=== PATIENT | female | born 1990 | race African-American/Black ===

== ENCOUNTER 2016-10-08 10:51 | Emergency (ER) | payer SELFPAY ==
[~2016-10-08] VITALS: Ht 157.5 cm; Wt 124.7 kg
[~2016-10-08 10:51] MED LIST: AZIT500T4 PO; CEPH-264 PO; CIPR500T94 PO; HYDR-2666 PO; METR500T PO; NAPR500T3 PO; PRED20TA PO; PRED50TA PO; PROAIR HFA8.5 GM INH; VENTOLIN HFA18 GM INH
[2016-10-08] MEDS ORDERED: METRONIDAZOLE 500 MG TABLET. PO ONE (11:45)
[2016-10-08] MEDS ORDERED: CEFTRIAXONE IM 250 MG VIAL. IM ONE (11:45)
[2016-10-08] MEDS ORDERED: AZITHROMYCIN 250 MG TABLET PO ONE (11:45)
--- NOTE | 2016-10-08 12:07 | PHYS DOC ---
Past Medical History Past Medical History: Asthma Past Surgical History: Other Additional Past Surgical Histo: keloid removed from ear Alcohol Use: Occasionally Drug Use: None Adult General Chief Complaint Chief Complaint: ABDOMINAL PAIN HPI HPI Patient is a 26 year old female with history of asthma who presents today with mild bilateral lower pelvic pain that began 4 days ago. Patient states the pain radiates to her back. Patient's also complaining of dysuria. Patient denies any hematuria. She is also concerned she could have an STD. She states she had unprotected sex recently and would like to be tested and treated. Review of Systems Review of Systems Constitutional: Denies fever or chills [] Eyes: Denies change in visual acuity, redness, or eye pain [] HENT: Denies nasal congestion or sore throat [] Respiratory: Denies cough or shortness of breath [] Cardiovascular: No additional information not addressed in HPI [] GI: Pelvic pain : Dysuria, concern for STDs Musculoskeletal: Denies back pain or joint pain [] Integument: Denies rash or skin lesions [] Neurologic: Denies headache, focal weakness or sensory changes [] Endocrine: Denies polyuria or polydipsia [] Current Medications Current Medications Current Medications Medications (Trade) Dose Ordered Sig/Adam Start Time Stop Time Status Last Admin Dose Admin Azithromycin (Zithromax) 1,000 mg 1X ONCE 10/08/16 11:45 10/08/16 11:46 DC 10/08/16 12:08 1,000 MG Ceftriaxone Sodium (Rocephin Im) 250 mg 1X ONCE 10/08/16 11:45 10/08/16 11:46 DC 10/08/16 12:09 250 MG Metronidazole (Flagyl) 2,000 mg 1X ONCE 10/08/16 11:45 10/08/16 11:46 DC 10/08/16 12:08 2,000 MG Allergies Allergies Allergies Coded Allergies Type Severity Reaction Last Updated Verified No Known Drug Allergies 03/02/16 No Physical Exam Physical Exam Constitutional: Well developed, well nourished, no acute distress, non-toxic appearance. [] HENT: Normocephalic, atraumatic, bilateral external ears normal, oropharynx moist, no oral exudates, nose normal. [] Eyes: PERRLA, EOMI, conjunctiva normal, no discharge. [] Neck: Normal range of motion, no tenderness, supple, no stridor. [] Cardiovascular:Heart rate regular rhythm, no murmur [] Lungs & Thorax: Bilateral breath sounds clear to auscultation [] Abdomen: Bowel sounds normal, soft, no tenderness, no masses, no pulsatile masses. [] Pelvic exam=External pelvic appears normal, cervix is closed, no CMT, no adnexal tenderness. Small amount of white discharge in the vaginal vault. Skin: Warm, dry, no erythema, no rash. [] Back: No tenderness, no CVA tenderness. [] Extremities: No tenderness, no cyanosis, no clubbing, ROM intact, no edema. [] Neurologic: Alert and oriented X 3, normal motor function, normal sensory function, no focal deficits noted. [] Psychologic: Affect normal, judgement normal, mood normal. [] Current Patient Data Vital Signs Vital Signs Date Time Temp Pulse Resp B/P Pulse Ox O2 Delivery O2 Flow Rate FiO2 10/08/16 12:09 80 124/58 Room Air 10/08/16 11:19 97.8 16 98 97.8 Lab Values Laboratory Tests Test 10/08/16 11:18 10/08/16 11:33 Urine Collection Type Unknown Urine Color Yellow Urine Clarity Clear Urine pH 6.0 Urine Specific [place] 1.025 Urine Protein Negativemg/dL (NEG-TRACE) Urine Glucose (UA) Negativemg/dL (NEG) Urine Ketones (Stick) Negativemg/dL (NEG) Urine Blood Negative (NEG) Urine Nitrite Negative (NEG) Urine Bilirubin Negative (NEG) Urine Urobilinogen Dipstick 0.2mg/dL (0.2 mg/dL) Urine Leukocyte Esterase Moderate (NEG) Urine RBC 0/HPF (0-2) Urine WBC 1-4/HPF (0-4) Urine Squamous Epithelial Cells Many/LPF Urine Bacteria 0/HPF (0-FEW) Urine Mucus Marked/LPF POC Urine HCG, Qualitative Hcg negative (Negative) Microbiology 10/08/16 Wet Prep - Final, Complete EKG EKG [] Radiology/Procedures Radiology/Procedures [] Course & Med Decision Making Course & Med Decision Making Pertinent Labs and Imaging studies reviewed. (See chart for details) Patient is in the ED with dysuria and concern for UTI as well as concern for STDs. Negative urine hCG, urine analysis is positive for UTI. Positive for bacterial vaginosis. Treated prophylaxis for STDs with Flagyl Rocephin and azithromycin. Discharged with Flagyl to complete BV treatment. Discharged with Bactrim for UTI. Educated on safe sex practices. Follow-up with PCP or health department for further STD concerns. Nikki Disclaimer Nikki Disclaimer This electronic medical record was generated, in whole or in part, using a voice recognition dictation system. Departure Departure Impression: Primary Impression: UTI (lower urinary tract infection) Additional Impressions: Bacterial vaginosis Concern about STD in female without diagnosis Disposition: 01 HOME, SELF-CARE Condition: STABLE Referrals: NO PCP (PCP) Follow-up with your own doctor or the health department for further STD concerns Patient Instructions: Bacterial Vaginosis, [id number], Urinary Tract Infection Additional Instructions: You were seen for urinary tract infection, you also tested positive for bacterial vaginosis. You requested to be treated for STDs which we did. Contact all your sex partners, let them know you were treated for STDs and ask them to seek treatment too. Follow-up with the health department for further STD concerns. Scripts Fluconazole (Diflucan)150 Mg Tablet1 Tab PO ONCE #1 TAB Ref 1 Take one tablet today and repeat in 7 days Prov:NICK ERICKSON APRN 10/08/16 Metronidazole (Flagyl)500 Mg Tablet1 Tab PO BID #10 TAB Prov:NICK ERICKSON APRN 10/08/16 Sulfamethoxazole/Trimethoprim (Bactrim Ds Tablet)1 Each Tablet1 Tab PO BID #14 TAB Prov:NICK ERICKSON APRN 10/08/16 Problem Qualifiers NICK ERICKSON APRN Oct 08, 2016 12:07
[2016-10-08 12:09] VITALS: BP 124/58
[2016-10-08 12:10] LABS: BILIRUBIN,URINE NEGATIVE (NEG); GLUCOSE,URINE NEGATIVE (NEG); NITRITE,URINE NEGATIVE (NEG); PROTEIN,URINE NEGATIVE (NEG-TRACE); UROBILINOGEN,URINE 0.2 mg/dL (0.2 mg/dL)
[2016-10-08 12:27] LABS: BACTERIA,URINE 0 /HPF (0-FEW); RBC,URINE 0 /HPF (0-2); SQUAMOUS EPITHELIAL CELL,UR MANY /LPF
[2016-10-08] MEDS ORDERED: FLUC150T PO (13:16)
[2016-10-08] MEDS ORDERED: METR500T PO (13:16)
[2016-10-08] MEDS ORDERED: SULF1TAB24 PO (13:16)
== END 2016-10-08 13:29 | disposition home or self-care (01) ==
LOC: ER 10:51
DX: N39.0 Urinary tract infection, site not specified (principal); N76.0 Acute vaginitis; B96.89 Other specified bacterial agents as the cause of diseases classified elsewhere; Z11.3 Encounter for screening for infections with a predominantly sexual mode of transmission; J45.909 Unspecified asthma, uncomplicated
CPT/HCPCS: 81001; 81025; 87491; 87591; 96372; 99284; J0696; Q0111; Q0144

== ENCOUNTER 2016-11-18 20:10 | Emergency (ER) | payer SELFPAY ==
[~2016-11-18 20:10] MED LIST changes: +FLUC150T PO; +SULF1TAB24 PO
[2016-11-18 20:20] VITALS: BP 124/76
--- NOTE | 2016-11-18 21:55 | PHYS DOC ---
Past Medical History Past Medical History: Asthma Past Surgical History: Other Additional Past Surgical Histo: keloid removed from ear Alcohol Use: Occasionally Drug Use: None Adult General Chief Complaint Chief Complaint: FOREIGNBODY EAR HPI HPI Patient is a 26 year old female who presents with a Q-tip stuck in her right ear. Review of Systems Review of Systems Constitutional: Denies fever or chills [] Eyes: Denies change in visual acuity, redness, or eye pain [] HENT: Q-tip in the right ear Musculoskeletal: Denies back pain or joint pain [] Integument: Denies rash or skin lesions [] Neurologic: Denies headache, focal weakness or sensory changes [] Endocrine: Denies polyuria or polydipsia [] Allergies Allergies Allergies Coded Allergies Type Severity Reaction Last Updated Verified No Known Drug Allergies 03/02/16 No Physical Exam Physical Exam Constitutional: Well developed, well nourished, no acute distress, non-toxic appearance. [] HENT: Normocephalic, atraumatic, bilateral external ears normal, oropharynx moist, no oral exudates, nose normal. [] right ear canal with a white-appearing foreign object consistent with a Q-tip. [ ] Skin: Warm, dry, no erythema, no rash. [] Back: No tenderness, no CVA tenderness. [] Extremities: No tenderness, no cyanosis, no clubbing, ROM intact, no edema. [] Neurologic: Alert and oriented X 3, normal motor function, normal sensory function, no focal deficits noted. [] Psychologic: Affect normal, judgement normal, mood normal. [] Current Patient Data Vital Signs Vital Signs Date Time Temp Pulse Resp B/P Pulse Ox O2 Delivery O2 Flow Rate FiO2 11/18/16 20:20 98.7 90 18 97 Room Air 98.7 EKG EKG [] Radiology/Procedures Radiology/Procedures [] Course & Med Decision Making Course & Med Decision Making Pertinent Labs and Imaging studies reviewed. (See chart for details) Patient has Q tip stuck in the right ear, I used forceps and successfully removed it. Educated not to put anything small than a finger in the ears. Dragon Disclaimer Dragon Disclaimer This electronic medical record was generated, in whole or in part, using a voice recognition dictation system. Departure Departure Impression: Primary Impression: Foreign body of ear, right Disposition: 01 HOME, SELF-CARE Condition: STABLE Referrals: NO PCP (PCP) follow up with your doctor as needed. Patient Instructions: Ear Foreign Body Additional Instructions: Do not put anything small than a finger in your ears. Take Tylenol/Motrin for pain Problem Qualifiers Primary Impression: Foreign body of ear, right Encounter type: initial encounter Qualified Code: T16.1XXA - Foreign body in right ear, initial encounter NICK ERICKSON APRN Nov 18, 2016 21:55
== END 2016-11-18 22:05 | disposition home or self-care (01) ==
LOC: ER 20:10
DX: T16.1XXA Foreign body in right ear, initial encounter (principal); J45.909 Unspecified asthma, uncomplicated; Z98.890 Other specified postprocedural states; X58.XXXA Exposure to other specified factors, initial encounter; Y93.89 Activity, other specified; Y99.8 Other external cause status; Y92.89 Other specified places as the place of occurrence of the external cause
CPT/HCPCS: 69200; 99284-25

== ENCOUNTER 2017-03-19 03:15 | Inpatient (IN) | payer SELFPAY ==
[2017-03-19] VITALS (17 sets, daily range): BP systolic 101–147; BP diastolic 52–79
[~2017-03-19] VITALS: Ht 154.9 cm; Wt 102.1 kg
[~2017-03-19 03:15] MED LIST changes: -HYDR-2666 PO; +HYDR-2758 PO
[2017-03-19] MEDS ORDERED: IV NORMAL SALINE 1000ML BAG 1,000 ML IV SCH ×3 (03:21→07:00)
--- NOTE | 2017-03-19 03:21 | PHYS DOC ---
Past Medical History Past Medical History: Asthma Past Surgical History: Other Additional Past Surgical Histo: keloid removed from ear Alcohol Use: Occasionally Drug Use: None Adult General Chief Complaint Chief Complaint: OVERDOSE HPI HPI Patient is a 26 year old female who presents with plate of overdose. She Did her sister at 0233 AM told her "come home I've taken a bunch of medications" she states she did take "Tylenol and other pills and more than 40 pills" .Unclear what she took but the patient later stated that she took midol. Review of Systems Review of Systems UNABLE TO OBTAIN DUE TO SEDATION Current Medications Current Medications Current Medications Medications (Trade) Dose Ordered Sig/Adam Start Time Stop Time Status Last Admin Dose Admin Ondansetron HCl (Zofran) 4 mg 1X ONCE 03/19/17 03:30 03/19/17 03:54 DC 03/19/17 03:47 4 MG Sodium Chloride 1,000 ml @ 100 mls/hr Q10H 03/19/17 04:17 Allergies Allergies Allergies Coded Allergies Type Severity Reaction Last Updated Verified No Known Drug Allergies 03/02/16 No Physical Exam Physical Exam Constitutional: Well developed, well nourished, no acute distress, sedated but awakens HENT: Normocephalic, atraumatic, bilateral external ears normal, oropharynx moist, no oral exudates, nose normal. [ Eyes: PERRLA, EOMI, conjunctiva normal, no discharge. Neck: Normal range of motion, no tenderness, supple, no stridor. Cardiovascular:Heart rate regular rhythm, no murmur Lungs & Thorax: Bilateral breath sounds clear to auscultation Abdomen: Bowel sounds normal, soft, no tenderness, no masses, no pulsatile masses. Skin: Warm, dry, no erythema, no rash. Back: No tenderness, no CVA tenderness. Extremities: No tenderness, no cyanosis, no clubbing, ROM intact, no edema. Neurologic: sedated; able to arouse to stimuli. able to move all extremities; normal motor function, normal sensory function, no focal deficits noted. Current Patient Data Vital Signs Vital Signs Date Time Temp Pulse Resp B/P (MAP) Pulse Ox O2 Delivery O2 Flow Rate FiO2 03/19/17 03:19 97.8 103 18 113/65 (81) 100 Room Air 97.8 Lab Values Laboratory Tests Test 03/19/17 03:03/19/17 03:30 Urine Collection Type U cath Urine Color Yellow Urine Clarity Clear Urine pH 6.0 Urine Specific [place] >=1.030 Urine Protein Negative mg/dL (NEG-TRACE) Urine Glucose (UA) Negative mg/dL (NEG) Urine Ketones (Stick) Trace mg/dL (NEG) Urine Blood Negative (NEG) Urine Nitrite Negative (NEG) Urine Bilirubin Negative (NEG) Urine Urobilinogen Dipstick 0.2 mg/dL (0.2 mg/dL) Urine Leukocyte Esterase Negative (NEG) Urine RBC Occ /HPF (0-2) Urine WBC 1-4 /HPF (0-4) Urine Squamous Epithelial Cells Few /LPF Urine Bacteria 0 /HPF (0-FEW) Urine Mucus Slight /LPF Urine Opiates Screen Neg (NEG) Urine Methadone Screen Neg (NEG) Urine Barbiturates Neg (NEG) Urine Phencyclidine Screen Neg (NEG) Urine Amphetamine/Methamphetamine Neg (NEG) Urine Benzodiazepines Screen Neg (NEG) Urine Cocaine Screen Neg (NEG) Urine Cannabinoids Screen Neg (NEG) Urine Ethyl Alcohol Neg (NEG) White Blood Count 12.4 x10^3/uL (4.0-11.0) H Red Blood Count 4.82 x10^6/uL (3.50-5.40) Hemoglobin 13.5 g/dL (12.0-15.5) Hematocrit 40.7 % (36.0-47.0) Mean Corpuscular Volume 85 fL (79-100) Mean Corpuscular Hemoglobin 28 pg (25-35) Mean Corpuscular Hemoglobin Concent 33 g/dL (31-37) Red Cell Distribution Width 14.4 % (11.5-14.5) Platelet Count 357 x10^3/uL (140-400) Neutrophils (%) (Auto) 40 % (31-73) Lymphocytes (%) (Auto) 48 % (24-48) Monocytes (%) (Auto) 8 % (0-9) Eosinophils (%) (Auto) 3 % (0-3) Basophils (%) (Auto) 1 % (0-3) Neutrophils # (Auto) 4.9 x10^3uL (1.8-7.7) Lymphocytes # (Auto) 6.0 x10^3/uL (1.0-4.8) H Monocytes # (Auto) 1.0 x10^3/uL (0.0-1.1) Eosinophils # (Auto) 0.3 x10^3/uL (0.0-0.7) Basophils # (Auto) 0.1 x10^3/uL (0.0-0.2) Prothrombin Time 12.8 SEC (11.7-14.0) Prothrombin Time INR 1.0 (0.8-1.1) PTT 27 SEC (24-38) Total Bilirubin 0.2 mg/dL (0.2-1.0) Direct Bilirubin 0.1 mg/dL (0.0-0.2) Aspartate Amino Transferase (AST) 16 U/L (15-37) Alanine Aminotransferase (ALT) 33 U/L (14-59) Alkaline Phosphatase 122 U/L (46-116) H Total Protein 8.5 g/dL (6.4-8.2) H Albumin 4.0 g/dL (3.4-5.0) Salicylates Level < 2.8 mg/dL (2.8-20.0) L Salicylate Last Dose Date Unknown Salicylate Last Dose Time Unknown Acetaminophen Level 184.9 mcg/ml (10-30) H Acetaminophen Last Dose Date Unknown Acetaminophen Last Dose Time Unknown Ethyl Alcohol Level < 10 mg/dL (0-10) Laboratory Tests 03/19/17 03:30 EKG EKG EKG interpreted by myself. Sinus tachycardia rate of 117. No acute ST elevation. Nonspecific ST changes. No prior EKG available to compare. Time of EKG as 0325 AM Course & Med Decision Making Course & Med Decision Making Pertinent Labs and Imaging studies reviewed. (See chart for details) Evaluated patient upon arrival. Sedated but easily arousable and able to handle her airway. Will check tylenol. 0430 AM: Acetaminophen level >150. We do not have a true 4 hour yet but concerned as that is a toxic dose. Initiated acetadote IV and will repeat acetaminophen level at [address] Mir for admission. Next tylenol level at 0630 am. will need to continue the acedote if the level is still in the toxic range (this will be the 4 hour level). normal LFT and coags at this time Dragon Disclaimer Dragon Disclaimer This electronic medical record was generated, in whole or in part, using a voice recognition dictation system. Departure Departure Impression: Primary Impression: Suicidal overdose Additional Impression: Overdose by acetaminophen Disposition: ADMITTED INPATIENT Referrals: NO PCP (PCP) Critical Care Note Total Time (mins): 30 Comments Evaluation to position of data, rotation of significant overdose, treatment with antidote for significant overdose. Problems: (1) Overdose by acetaminophen (2) Suicidal overdose Critical Care Time Critical care time was 30 minutes exclusive of procedures. Problem Qualifiers (1) Overdose by acetaminophen: Encounter type: initial encounter (2) Suicidal overdose: Encounter type: initial encounter Qualified Codes: T50.902A - Poisoning by unspecified drugs, medicaments and biological substances, intentional self-harm , initial encounter MARY BOSE MD Mar 19, 2017 03:21
[2017-03-19] MEDS ORDERED: ONDANSETRON PF 4 MG/2 ML VIAL. IV ONE (03:30)
[2017-03-19 03:41] LABS: BASO # 0.1 x10^3/uL (0.0-0.2); BASO % 1 % (0-3); EOS % 3 % (0-3); HEMATOCRIT 40.7 % (36.0-47.0); HEMOGLOBIN 13.5 g/dL (12.0-15.5); LYMPH % 48 % (24-48); MEAN CORPUSCULAR HEMOGLOBIN 28 pg (25-35); MEAN CORPUSCULAR HGB CONC 33 g/dL (31-37); MEAN CORPUSCULAR VOLUME 85 fL (79-100); MONO % 8 % (0-9); NEUT % 40 % (31-73); PLATELET COUNT 357 x10^3/uL (140-400); RED BLOOD COUNT 4.82 x10^6/uL (3.50-5.40); RED CELL DISTRIBUTION WIDTH 14.4 % (11.5-14.5); WHITE BLOOD COUNT 12.4 x10^3/uL (4.0-11.0)
[2017-03-19 03:44] LABS: BILIRUBIN,URINE NEGATIVE (NEG); GLUCOSE,URINE NEGATIVE (NEG); NITRITE,URINE NEGATIVE (NEG); PROTEIN,URINE NEGATIVE (NEG-TRACE); UROBILINOGEN,URINE 0.2 mg/dL (0.2 mg/dL)
[2017-03-19 03:53] LABS: PROTHROMBIN TIME PATIENT 12.8 SEC (11.7-14.0)
[2017-03-19 04:04] LABS: DIRECT BILIRUBIN 0.1 mg/dL (0.0-0.2); TOTAL BILIRUBIN 0.2 mg/dL (0.2-1.0); TOTAL PROTEIN 8.5 g/dL (6.4-8.2)
[2017-03-19 04:12] LABS: ETHANOL < 10 mg/dL (0-10)
[2017-03-19 04:18] LABS: BARBITURATES NEG (NEG); BENZODIAZEPINES NEG (NEG); CANNABINOIDS NEG (NEG); COCAINE NEG (NEG); METHADONE NEG (NEG); OPIATES NEG (NEG); PHENCYCLIDINE NEG (NEG)
[2017-03-19] MEDS ORDERED: 0.9 % SODIUM CHLORIDE 10 ML DISP.SYRIN. IV PRN (04:30)
[2017-03-19 04:46] LABS: BACTERIA,URINE 0 /HPF (0-FEW); RBC,URINE OCC /HPF (0-2); SQUAMOUS EPITHELIAL CELL,UR FEW /LPF
[2017-03-19] MEDS ORDERED: DEXTROSE 5% IV ONE ×3 (05:00→11:45)
[2017-03-19] MEDS ORDERED: ACETYLCYSTEINE IV ONE ×3 (05:00→11:45)
[2017-03-19] MEDS: ONDANSETRON PF 4 MG/2 ML VIAL. IV PRN ×2 (07:18→15:37)
--- NOTE | 2017-03-19 07:57 | EKG ---
[facility] [address] [place] [address] Test Date: 2017-03-19 Test Time: 03:25:24 Pat Name: AMEENA TOLENTINO Department: Room: Gender: F [employer] Department Chair: : 1990 Requested By: MARY BOSE Order Number: [id number] Reading MD: Measurements Intervals [place] Rate: 117 P: -90 ND: 92 QRS: 15 QRSD: 76 T: 23 QT: 334 QTc: 470 Interpretive Statements SINUS TACHYCARDIA NO SPECIFIC ECG ABNORMALITIES RI6.01 No previous ECG available for comparison
[2017-03-19 08:09] LABS: ALBUMIN 3.4 g/dL (3.4-5.0); ALBUMIN/GLOBULIN RATIO 0.8 (1.0-1.7); CALCIUM 7.5 mg/dL (8.5-10.1); CREATININE 1.1 mg/dL (0.6-1.0); GFR 73.8; TOTAL BILIRUBIN 0.2 mg/dL (0.2-1.0); TOTAL PROTEIN 7.5 g/dL (6.4-8.2)
[2017-03-19] MEDS ORDERED: DEXTROSE 50% 25 GM / 50ML DISP.SYRIN. IV PRN (08:30)
--- NOTE | 2017-03-19 08:38 | PDOC1 ---
History and Physical Date of Admission Date of Admission Date of exam 03/19/2017 at 8 AM Identification/Chief Complaint Chief Complaint Tylenol overdose Problems: History of Present Illness History of Present Illness A 26-year-old female patient was brought to the hospital by sister for Tylenol overdose, most of the history obtained from the chart as patient is not able to provide any history. As per the report, patient took nearly 40 tablets 04 Tylenol this morning around 2:30 AM however the time of ingestion is not clear. After ingestion of tablets, she called her sister who brought her here. Reportedly patient was alert but not following commands encephalopathic. Based on her initial labs she received the [place] cystine in the ER. At the time of examination this morning, patient not able to provide any history alert but moving all of the bed no family members available. Discussed with the ER physician and the RN obtain most of the history. Her past medical history questionable asthma Past surgical history unknown past family history unknown Social history unknown Current Medications Current Medications Current Medications Medications (Trade) Dose Ordered Sig/Adam Start Time Stop Time Status Last Admin Dose Admin Acetylcysteine 5.22 gm/Dextrose 526.1 ml @ 125 mls/hr 1X ONCE 03/19/17 06:00 03/19/17 10:12 03/19/17 07:46 125 MLS/HR Acetylcysteine 15.65 gm/Dextrose 278.25 ml @ 200 mls/ hr 1X ONCE 03/19/17 05:00 03/19/17 06:23 DC 03/19/17 06:05 200 MLS/HR Dextrose (Dextrose 50%-Water Syringe) 12.5 gm PRN Q15MIN PRN 03/19/17 08:30 UNV Insulin Aspart (NovoLOG) 0-7 UNITS TIDWMEALS 03/19/17 12:00 UNV Ondansetron HCl (Zofran) 4 mg PRN Q6HRS PRN 03/19/17 07:15 03/19/17 07:18 4 MG Potassium Chloride/Sodium Chloride 1,000 ml @ 75 mls/hr 1X ONCE 03/19/17 08:30 03/19/17 21:49 UNV Sodium Chloride 1,000 ml @ 75 mls/hr [id number] 03/19/17 07:00 03/19/17 08:27 DC 03/19/17 07:52 75 MLS/HR Sodium Chloride (Normal Saline Flush) 3 ml QSHIFT PRN 03/19/17 04:30 Allergies Allergies Allergies Coded Allergies Type Severity Reaction Last Updated Verified No Known Drug Allergies 03/02/16 No ROS Review of System Confused moving all over the bed Rest of the history notable doctor and due to a daily of patient condition Physical Exam Physical Exam GEN.: She is alert but not following commands, appears mild distress HEENT: Head is normocephalic, atraumatic NECK: Supple. No JVD LUNGS: Clear to auscultation. Normal air flow HEART: RRR, S1, S2 present. Peripheral pulses intact ABDOMEN: Soft, nontender. Positive bowel sounds. EXTREMITIES: Without any cyanosis. NEUROLOGIC: Encephalopathic PSYCHIATRIC: Anxious SKIN: No visible ulcerations Vitals Vitals Vital Signs Date Time Temp Pulse Resp B/P (MAP) Pulse Ox O2 Delivery O2 Flow Rate FiO2 03/19/17 07:38 97.9 102 20 136/78 (97) 99 Room Air 97.9 Labs Labs Laboratory Tests Test 03/19/17 03:23 03/19/17 03:30 03/19/17 07:40 Urine Collection Type U cath Urine Color Yellow Urine Clarity Clear Urine pH 6.0 Urine Specific Harrison >=1.030 Urine Protein Negative mg/dL (NEG-TRACE) Urine Glucose (UA) Negative mg/dL (NEG) Urine Ketones (Stick) Trace mg/dL (NEG) Urine Blood Negative (NEG) Urine Nitrite Negative (NEG) Urine Bilirubin Negative (NEG) Urine Urobilinogen Dipstick 0.2 mg/dL (0.2 mg/dL) Urine Leukocyte Esterase Negative (NEG) Urine RBC Occ /HPF (0-2) Urine WBC 1-4 /HPF (0-4) Urine Squamous Epithelial Cells Few /LPF Urine Bacteria 0 /HPF (0-FEW) Urine Mucus Slight /LPF Urine Opiates Screen Neg (NEG) Urine Methadone Screen Neg (NEG) Urine Barbiturates Neg (NEG) Urine Phencyclidine Screen Neg (NEG) Urine Amphetamine/Methamphetamine Neg (NEG) Urine Benzodiazepines Screen Neg (NEG) Urine Cocaine Screen Neg (NEG) Urine Cannabinoids Screen Neg (NEG) Urine Ethyl Alcohol Neg (NEG) White Blood Count 12.4 x10^3/uL (4.0-11.0) Red Blood Count 4.82 x10^6/uL (3.50-5.40) Hemoglobin 13.5 g/dL (12.0-15.5) Hematocrit 40.7 % (36.0-47.0) Mean Corpuscular Volume 85 fL (79-100) Mean Corpuscular Hemoglobin 28 pg (25-35) Mean Corpuscular Hemoglobin Concent 33 g/dL (31-37) Red Cell Distribution Width 14.4 % (11.5-14.5) Platelet Count 357 x10^3/uL (140-400) Neutrophils (%) (Auto) 40 % (31-73) Lymphocytes (%) (Auto) 48 % (24-48) Monocytes (%) (Auto) 8 % (0-9) Eosinophils (%) (Auto) 3 % (0-3) Basophils (%) (Auto) 1 % (0-3) Neutrophils # (Auto) 4.9 x10^3uL (1.8-7.7) Lymphocytes # (Auto) 6.0 x10^3/uL (1.0-4.8) Monocytes # (Auto) 1.0 x10^3/uL (0.0-1.1) Eosinophils # (Auto) 0.3 x10^3/uL (0.0-0.7) Basophils # (Auto) 0.1 x10^3/uL (0.0-0.2) Prothrombin Time 12.8 SEC (11.7-14.0) Prothromb Time International Ratio 1.0 (0.8-1.1) Activated Partial Thromboplast Time 27 SEC (24-38) Total Bilirubin 0.2 mg/dL (0.2-1.0) 0.2 mg/dL (0.2-1.0) Direct Bilirubin 0.1 mg/dL (0.0-0.2) Aspartate Amino Transf (AST/SGOT) 16 U/L (15-37) 14 U/L (15-37) Alanine Aminotransferase (ALT/SGPT) 33 U/L (14-59) 29 U/L (14-59) Alkaline Phosphatase 122 U/L (46-116) 86 U/L (46-116) Total Protein 8.5 g/dL (6.4-8.2) 7.5 g/dL (6.4-8.2) Albumin 4.0 g/dL (3.4-5.0) 3.4 g/dL (3.4-5.0) Salicylates Level < 2.8 mg/dL (2.8-20.0) Salicylate Last Dose Date Unknown Salicylate Last Dose Time Unknown Acetaminophen Level 184.9 mcg/ml (10-30) 231.41 mcg/ml (10-30) Acetaminophen Last Dose Date Unknown Unknown Acetaminophen Last Dose Time Unknown Unknown Ethyl Alcohol Level < 10 mg/dL (0-10) Sodium Level 142 mmol/L (136-145) Potassium Level 3.0 mmol/L (3.5-5.1) Chloride Level 102 mmol/L (98-107) Carbon Dioxide Level 16 mmol/L (21-32) Anion Gap 24 (6-14) Blood Urea Nitrogen 11 mg/dL (7-20) Creatinine 1.1 mg/dL (0.6-1.0) Estimated GFR (Cockcroft-Gault) 73.8 BUN/Creatinine Ratio 10 (6-20) Glucose Level 243 mg/dL (70-99) Calcium Level 7.5 mg/dL (8.5-10.1) Albumin/Globulin Ratio 0.8 (1.0-1.7) Laboratory Tests Test 03/19/17 03:23 03/19/17 03:30 03/19/17 07:40 Urine Collection Type U cath Urine Color Yellow Urine Clarity Clear Urine pH 6.0 Urine Specific Harrison >=1.030 Urine Protein Negative mg/dL (NEG-TRACE) Urine Glucose (UA) Negative mg/dL (NEG) Urine Ketones (Stick) Trace mg/dL (NEG) Urine Blood Negative (NEG) Urine Nitrite Negative (NEG) Urine Bilirubin Negative (NEG) Urine Urobilinogen Dipstick 0.2 mg/dL (0.2 mg/dL) Urine Leukocyte Esterase Negative (NEG) Urine RBC Occ /HPF (0-2) Urine WBC 1-4 /HPF (0-4) Urine Squamous Epithelial Cells Few /LPF Urine Bacteria 0 /HPF (0-FEW) Urine Mucus Slight /LPF Urine Opiates Screen Neg (NEG) Urine Methadone Screen Neg (NEG) Urine Barbiturates Neg (NEG) Urine Phencyclidine Screen Neg (NEG) Urine Amphetamine/Methamphetamine Neg (NEG) Urine Benzodiazepines Screen Neg (NEG) Urine Cocaine Screen Neg (NEG) Urine Cannabinoids Screen Neg (NEG) Urine Ethyl Alcohol Neg (NEG) White Blood Count 12.4 x10^3/uL (4.0-11.0) Red Blood Count 4.82 x10^6/uL (3.50-5.40) Hemoglobin 13.5 g/dL (12.0-15.5) Hematocrit 40.7 % (36.0-47.0) Mean Corpuscular Volume 85 fL (79-100) Mean Corpuscular Hemoglobin 28 pg (25-35) Mean Corpuscular Hemoglobin Concent 33 g/dL (31-37) Red Cell Distribution Width 14.4 % (11.5-14.5) Platelet Count 357 x10^3/uL (140-400) Neutrophils (%) (Auto) 40 % (31-73) Lymphocytes (%) (Auto) 48 % (24-48) Monocytes (%) (Auto) 8 % (0-9) Eosinophils (%) (Auto) 3 % (0-3) Basophils (%) (Auto) 1 % (0-3) Neutrophils # (Auto) 4.9 x10^3uL (1.8-7.7) Lymphocytes # (Auto) 6.0 x10^3/uL (1.0-4.8) Monocytes # (Auto) 1.0 x10^3/uL (0.0-1.1) Eosinophils # (Auto) 0.3 x10^3/uL (0.0-0.7) Basophils # (Auto) 0.1 x10^3/uL (0.0-0.2) Prothrombin Time 12.8 SEC (11.7-14.0) Prothromb Time International Ratio 1.0 (0.8-1.1) Activated Partial Thromboplast Time 27 SEC (24-38) Total Bilirubin 0.2 mg/dL (0.2-1.0) 0.2 mg/dL (0.2-1.0) Direct Bilirubin 0.1 mg/dL (0.0-0.2) Aspartate Amino Transf (AST/SGOT) 16 U/L (15-37) 14 U/L (15-37) Alanine Aminotransferase (ALT/SGPT) 33 U/L (14-59) 29 U/L (14-59) Alkaline Phosphatase 122 U/L (46-116) 86 U/L (46-116) Total Protein 8.5 g/dL (6.4-8.2) 7.5 g/dL (6.4-8.2) Albumin 4.0 g/dL (3.4-5.0) 3.4 g/dL (3.4-5.0) Salicylates Level < 2.8 mg/dL (2.8-20.0) Salicylate Last Dose Date Unknown Salicylate Last Dose Time Unknown Acetaminophen Level 184.9 mcg/ml (10-30) 231.41 mcg/ml (10-30) Acetaminophen Last Dose Date Unknown Unknown Acetaminophen Last Dose Time Unknown Unknown Ethyl Alcohol Level < 10 mg/dL (0-10) Sodium Level 142 mmol/L (136-145) Potassium Level 3.0 mmol/L (3.5-5.1) Chloride Level 102 mmol/L (98-107) Carbon Dioxide Level 16 mmol/L (21-32) Anion Gap 24 (6-14) Blood Urea Nitrogen 11 mg/dL (7-20) Creatinine 1.1 mg/dL (0.6-1.0) Estimated GFR (Cockcroft-Gault) 73.8 BUN/Creatinine Ratio 10 (6-20) Glucose Level 243 mg/dL (70-99) Calcium Level 7.5 mg/dL (8.5-10.1) Albumin/Globulin Ratio 0.8 (1.0-1.7) VTE Prophylaxis Ordered VTE Prophylaxis Devices: No VTE Pharmacological Prophylaxi: No Assessment/Plan Assessment/Plan Assessment and plan Acute metabolic encephalopathy Metabolic acidosis due to acetaminophen toxicity Acetaminophen overdose Suicidal ideations Intractable nausea Plan Patient is receiving NAC in as per the protocol poison Control has been notified Repeat labs as per the recommendations from the poison control CBC/CMP/PT/INR/ABGs ordered Transfuse a 1 amp of bicarbonate Continue IV hydration with normal saline Replace potassium Treatment nausea symptomatically with IV Zofran and Compazine Monitor LFTs closely if patient shows any signs of for necrosis patient may need to be transferred to [facility] Consult critical care Case discussed with the nephrology, no need for immediate hemodialysis, will repeat labs in a.m. and consult nephrology as needed Overall prognosis, is guarded her condition is critical. Total critical care time spent 35 minutes. SHAKIR NG MD Mar 19, 2017 08:38
[2017-03-19 08:47] LABS: HCO3 ABG 14 mmol/L (21-28); PCO2 ABG 27 mmHg (35-46); PH ABG 7.31 (7.35-7.45); PO2 ABG 105 mmHg (85-108); SAT O2 ABG 97 % (92-99)
[2017-03-19] MEDS ORDERED: POTASSIUM CL 40MEQ IN 0.9%NACL 1,000 ML IV ONE (09:00)
[2017-03-19] MEDS ORDERED: SODIUM BICARB ADULT 8.4% 50 MEQ/50 ML DISP.SYRIN. IV ONE (09:00)
[2017-03-19 09:14] LABS: FIO2 ABG 21
[2017-03-19] MEDS ORDERED: PROMETHAZINE 12.5 MG in IV NORMAL SALINE 50ML 50 ML IV PRN (11:00)
--- NOTE | 2017-03-19 11:29 | PDOC ---
Provider Note Provider Note [id number] acetaminophen od hypo k n acetylcysteine monitor closely in icu RAFFI ALBERTO MD Mar 19, 2017 11:29
[2017-03-19] MEDS: FAMOTIDINE 20 MG/2 ML VIAL IVP SCH ×2 (11:52→21:08)
[2017-03-19] MEDS: INSULIN ASPART 300 UNITS/3 ML INSULN.PEN SQ SCH ×2 (12:00→17:00)
[2017-03-19] MEDS: IPRATRPIUM/ALBUTEROL 0.5/2.5MG 3 ML NEBU. NEB SCH ×3 (12:24→20:59)
[2017-03-19 12:29] LABS: NEG OBC UR NEG; POS OBC UR POS
--- NOTE | 2017-03-19 14:01 | CONS ---
DATE OF CONSULTATION: 03/19/2017 REASON FOR CONSULTATION: I was asked to see this 26-year-old lady for acetaminophen overdose. HISTORY OF PRESENT ILLNESS: She is crying, answers some of my questions. She called her sister at 0233 hours and told her, "come home, I have taken a bunch of medication." She took Tylenol and other pills, more than 40 pills. She now has right upper quadrant pain and epigastric pain. She is vomiting. She has slight shortness of breath. She denies cough. Her acetaminophen level at 0330 hours was 184.9 and at 0740 hours, it was 231.41. PAST MEDICAL HISTORY: Asthma. ALLERGIES: No known drug allergies. MEDICATIONS: Currently, she is on acetylcysteine. She is going to receive her third dose shortly. SOCIAL HISTORY: She denies smoking. FAMILY HISTORY: She does not answer to this question. REVIEW OF SYSTEMS: As mentioned above, other systems otherwise negative. PHYSICAL EXAMINATION: GENERAL: This is an obese lady. Her O2 saturation is 97%, respiratory rate 18, heart rate 100, blood pressure 120/69, temperature 97.9. HEENT: Normocephalic, atraumatic. Pupils are equal, round, reactive to light. Nose is clear. Throat is clear. NECK: There is no JVD, lymphadenopathy or thyromegaly. CARDIOVASCULAR: Regular rate and rhythm. PMI is nondisplaced. CHEST: Inspection is normal. LUNGS: Clear to auscultation. There is no wheezing. ABDOMEN: Soft and obese. There is tenderness in epigastric area. Bowel sounds are good. EXTREMITIES: There is no edema. LYMPHATICS: There is no lymphadenopathy. NEUROLOGIC: Alert and oriented. SKIN: Warm. LABORATORY DATA: I reviewed the following lab data. Acetaminophen level as mentioned above. Her urine drug screen is negative. Her salicylate level is less than 2.8. Alcohol less than 10. salysilate negative. Sodium 142, potassium 3, chloride 102, CO2 of 16, glucose 243, BUN 11, creatinine 1.1. Total bilirubin 0.2, AST 16, ALT 33, alkaline phosphatase 122. WBC 12.4, hemoglobin 13.5, platelets 357. ABG shows pH of 7.31, pCO2 of 27, pO2 of 105. INR is 1. IMPRESSION: 1. Acetaminophen overdose. 2. Electrolyte imbalance, hypokalemia. 3. Leukocytosis. 4. Asthma. 5. Obesity, probable obstructive sleep apnea-hypopnea syndrome. 6. Elevated blood sugar. PLAN AND RECOMMENDATIONS: 1. Titrate FiO2 to keep O2 saturation 92%. 2. Start bronchodilator. 3. Continue acetylcysteine, 17 doses. 4. Start Pepcid 20 mg IV, first dose now. 5. I agree with Lien. 6. Monitor her liver function tests very closely. 7. She would require psych consult. 8. Monitor her very closely in ICU. 9. I will do test. 10. The findings and recommendations were discussed with the patient and Registered Nurse. Thank you very much for allowing me to participate in care of this very nice lady. RAFFI ALBERTO M.D. DR: Julianna JOB#: [id number] / [id number] BRADY
[2017-03-19 14:55] LABS: ALBUMIN 3.7 g/dL (3.4-5.0); ALBUMIN/GLOBULIN RATIO 0.8 (1.0-1.7); CALCIUM 8.4 mg/dL (8.5-10.1); CREATININE 0.9 mg/dL (0.6-1.0); GFR 93.1; MAGNESIUM 1.5 mg/dL (1.8-2.4); POTASSIUM 3.2 mmol/L (3.5-5.1); TOTAL BILIRUBIN 0.2 mg/dL (0.2-1.0); TOTAL PROTEIN 8.3 g/dL (6.4-8.2)
[2017-03-19] MEDS ORDERED: MAGNESIUM SULFATE 2GM 50 ML IV ONE (16:00)
[2017-03-19] MEDS: POTASSIUM CHLORIDE 10MEQ 100 ML IV SCH ×4 (18:13→21:09)
[2017-03-20] VITALS (8 sets, daily range): BP systolic 94–139; BP diastolic 49–75
--- NOTE | 2017-03-20 00:13 | ACF ---
Admission Forms Criteria DRUG INGESTION OR OVERDOSE Clinical Indications for Admission to Inpatient Care ( Place 'X' for any and all applicable criteria): Admission is indicated for severe toxicity as indicated by ANY ONE of the following(1)(2)(3)(4)(5)(6): [X ]I. Inpatient admission required rather than observation care (Also use Drug Ingestion or Overdose: Observation Care guideline as appropriate) because of ANY ONE of the following: [ ]a) Altered mental status that is severe or persistent [ ]b) Clinical finding (eg, metabolic acidosis, hypoglycemia, bradycardia) that is severe or persistent [ ]c) Toxic drug level that is persistent [X ]d) Psychiatric risk status not acceptable for outpatient management [ ]e) Continuous intravenous infusion of anticoagulation, platelet inhibitor, vasoactive, or antiarrhythmic medication (15)(16) [ ]f) Other condition, treatment or monitoring requiring inpatient admission [ ]II. Respiratory abnormalities [ ]III. Specific finding indicating severe and likely prolonged drug toxicity [ ]IV. Hemodynamic instability [ ]V. Dangerous arrhythmia [ ]. Hypertension requiring inpatient treatment Extended stay beyond goal length of stay may be needed for (4): [ ]a) Neurologic or respiratory compromise [ ]b) Hemodynamic instability [ ]c) Persistent toxic drug levels (25) [ ]d) Severe drug toxicities or complications [ ]e) Ongoing antidote treatment (eg, acetaminophen overdose)(5) [ ]f) Older patients(65 years or older) The original [facility] content created by [employer] has been revised. The portions of the content which have been revised are identified through the use of italic text or in bold, and [facility] has neither reviewed nor approved the modified material. All other unmodified content is copyright [facility]. Please see references footnoted in the original [facility] edition 2016 Admission Criteria Met?: Yes SHONA HICKS Mar 20, 2017 00:13
[2017-03-20] MEDS: ONDANSETRON PF 4 MG/2 ML VIAL. IV PRN ×2 (01:00→06:31)
[2017-03-20 05:33] LABS: BASO # 0.1 x10^3/uL (0.0-0.2); BASO % 1 % (0-3); EOS % 1 % (0-3); HEMATOCRIT 37.5 % (36.0-47.0); HEMOGLOBIN 12.8 g/dL (12.0-15.5); LYMPH # 3.5 x10^3/uL (1.0-4.8); LYMPH % 33 % (24-48); MEAN CORPUSCULAR HEMOGLOBIN 29 pg (25-35); MEAN CORPUSCULAR HGB CONC 34 g/dL (31-37); MEAN CORPUSCULAR VOLUME 84 fL (79-100); MONO % 9 % (0-9); NEUT % 57 % (31-73); PLATELET COUNT 337 x10^3/uL (140-400); RED BLOOD COUNT 4.48 x10^6/uL (3.50-5.40); RED CELL DISTRIBUTION WIDTH 14.3 % (11.5-14.5); WHITE BLOOD COUNT 10.7 x10^3/uL (4.0-11.0)
[2017-03-20 06:02] LABS: ALBUMIN 3.2 g/dL (3.4-5.0); ALBUMIN/GLOBULIN RATIO 0.8 (1.0-1.7); CALCIUM 8.6 mg/dL (8.5-10.1); CREATININE 0.9 mg/dL (0.6-1.0); GFR 93.1; POTASSIUM 3.9 mmol/L (3.5-5.1); TOTAL BILIRUBIN 0.4 mg/dL (0.2-1.0); TOTAL PROTEIN 7.2 g/dL (6.4-8.2)
[2017-03-20 06:05] LABS: INR 1.3 (0.8-1.1); PROTHROMBIN TIME PATIENT 15.3 SEC (11.7-14.0)
--- NOTE | 2017-03-20 07:41 | RAD ---
Portable chest, 03/20/2017: History: Overdose Comparison is made to a study from 06/22/2016. The heart size and pulmonary vascularity are normal. The lungs are clear. There is no evidence of pleural fluid. IMPRESSION: No acute cardiopulmonary abnormality is detected.
[2017-03-20] MEDS: INSULIN ASPART 300 UNITS/3 ML INSULN.PEN SQ SCH ×2 (08:00→12:00)
[2017-03-20] MEDS: FAMOTIDINE 20 MG/2 ML VIAL IVP SCH (08:24)
[2017-03-20] MEDS ORDERED: IPRATRPIUM/ALBUTEROL 0.5/2.5MG 3 ML NEBU. NEB PRN (08:30)
[2017-03-20] MEDS ORDERED: MORPHINE SULFATE 2 MG/ML DISP.SYRIN. IV PRN (09:45)
[2017-03-20] MEDS ORDERED: hydrALAZINE 20 MG/ML VIAL. IVP PRN (09:45)
[2017-03-20] MEDS ORDERED: ACETAMINOPHEN 325 MG TABLET. PO PRN (09:45)
[2017-03-20] MEDS ORDERED: ONDANSETRON PF 4 MG/2 ML VIAL. IV PRN (09:45)
[2017-03-20] MEDS ORDERED: DOCUSATE SODIUM 100 MG CAPSULE. PO PRN (09:45)
[2017-03-20] MEDS ORDERED: traMADol 50 MG TABLET PO PRN (09:45)
[2017-03-20] MEDS ORDERED: IV NORMAL SALINE 1000ML BAG 1,000 ML IV SCH (09:45)
--- NOTE | 2017-03-20 13:28 | PDOC3 ---
Discharge Summary [facility] Date of Admission: Mar 19, 2017 Discharge Date: Mar 20, 2017 Admitting Diagnosis Acute metabolic encephalopathy Metabolic acidosis due to acetaminophen toxicity Acetaminophen overdose Suicidal ideations Intractable nausea Problems: CONSULTS PAT Brief Hospital Course Ms. Colon is a 26 old F, was sent by sister for drug overdose, She said she was stupid, denies suicide, took midol with tylenol. Tylenol level is high in ER , liver function was ok. she was in ICU ,with NAC iv. now she woke up fine, c/o some abd pain, nausea, tolerates diet well, tylenol level low. PAT evaluated her, recommend psych as outpt. dc home dc time 35min GEN.: She is alert but not following commands, appears mild distress HEENT: Head is normocephalic, atraumatic NECK: Supple. No JVD LUNGS: Clear to auscultation. Normal air flow HEART: RRR, S1, S2 present. Peripheral pulses intact ABDOMEN: Soft, nontender. Positive bowel sounds. EXTREMITIES: Without any cyanosis. NEUROLOGIC: Encephalopathic PSYCHIATRIC: Anxious SKIN: No visible ulcerations Patient History: Patient reports no known family medical history. Problems: Disposition home CONDITION AT DISCHARGE: Improved Diet regular Scheduled Albuterol Sulfate (Ventolin Hfa Inhaler), 2 PUFF INH Q4HRS Scheduled PRN Albuterol Sulfate (Proair Hfa Inhaler), 1 PUFF INH PRN Q6HRS PRN for SHORTNESS OF BREATH Hydrocodone Bit/Acetaminophen (Hydrocodone-Apap 5-325 ), 1 TAB PO PRN Q6HRS PRN for PAIN Discontinued Medications Azithromycin (Azithromycin Tablet), 1,000 MG PO 1X Cephalexin (Keflex), 1 CAP PO BID Ciprofloxacin Hcl (Cipro), 1 TAB PO BID PRN for UTI Fluconazole (Diflucan), 1 TAB PO ONCE Metronidazole (Flagyl), 1 TAB PO BID Metronidazole (Flagyl), 1 TAB PO BID Naproxen (Naproxen), 1 TAB PO BID PRN for PAIN Prednisone (Prednisone), 40 MG PO DAILY Prednisone (Prednisone), 40 MG PO DAILY Prednisone (Prednisone), 1 TAB PO DAILY Sulfamethoxazole/Trimethoprim (Bactrim Ds Tablet), 1 TAB PO BID LIZBETH WEISS MD Mar 20, 2017 13:28
== END 2017-03-20 14:15 | disposition home or self-care (01) | DRG 917 ==
LOC: ER 03:15 → 1 WEST ICU 04:27
PROVIDERS: ADMIT Internal Medicine; ATTEND Internal Medicine
DX: T39.1X2A Poisoning by 4-Aminophenol derivatives, intentional self-harm, initial encounter (principal); G93.41 Metabolic encephalopathy; E87.2 Acidosis; Z68.41 Body mass index [BMI] 40.0-44.9, adult; R45.851 Suicidal ideations; G47.33 Obstructive sleep apnea (adult) (pediatric); E87.6 Hypokalemia; E83.42 Hypomagnesemia; E66.9 Obesity, unspecified; D72.829 Elevated white blood cell count, unspecified; J45.909 Unspecified asthma, uncomplicated; Z79.899 Other long term (current) drug therapy; Z79.1 Long term (current) use of non-steroidal anti-inflammatories (NSAID)
CPT/HCPCS: 36415; 36600; 51701; 71010; 80053; 80076; 80329; 81001; 81025; 82805; 82962; 83735; 85027; 85610; 85730; 87641; 93005; 94250; 94640; 96361; 96374; G0480; G0481; J0132; J1815; J2405; J2550; J3480; J7030; J7060; J7620; S0028; 99291-25; A6539

== ENCOUNTER 2017-07-19 04:04 | Emergency (ER) | payer SELFPAY ==
[~2017-07-19 04:04] MED LIST changes: -NAPR500T3 PO; +NAPR500T4 PO
[2017-07-19] MEDS ORDERED: predniSONE 20 MG TABLET PO ONE (04:30)
[2017-07-19] MEDS ORDERED: IPRATRPIUM/ALBUTEROL 0.5/2.5MG 3 ML NEBU. NEB ONE (04:30)
[2017-07-19] MEDS ORDERED: IPRATRPIUM/ALBUTEROL 0.5/2.5MG 3 ML NEBU. ONE (04:32)
[2017-07-19] MEDS ORDERED: PROAIR HFA8.5 GM INH (04:34)
[2017-07-19] MEDS ORDERED: METH4TAB2 PO (04:34)
[2017-07-19] MEDS ORDERED: IPRA3AMP NEB (04:34)
--- NOTE | 2017-07-19 04:34 | PHYS DOC ---
Past Medical History Past Medical History: Asthma Past Surgical History: Other Additional Past Surgical Histo: keloid removed from ear Additional Information: Non smoker Alcohol Use: Occasionally Drug Use: None Adult General Chief Complaint Chief Complaint: COUGH HPI HPI Patient is a 27 year old female who presents with asthma exacerbation. She ran out of her meds for the nebulizer machine and she is almost out of her inhaler. Last week she had the "flu." This week the cough has persisted; non productive. No fever. She has increased wheezing and SOA. No recent travel. She does not smoke tobacco. No leg pain or swelling. No chest pain. Reviewed prior records (extensive). Review of Systems Review of Systems Constitutional: Denies fever or chills Eyes: Denies change in visual acuity, redness, or eye pain HENT: POS nasal congestion but no sore throat Respiratory: POS non productive cough and shortness of breath with wheezing Cardiovascular: No chest pain GI: Denies abdominal pain, nausea, vomiting, bloody stools or diarrhea : Denies dysuria or hematuria Musculoskeletal: Denies back pain or joint pain Integument: Denies rash or skin lesions Neurologic: Denies headache, focal weakness or sensory changes All other systems were reviewed and found to be within normal limits, except as documented in this note. Current Medications Current Medications Current Medications Medications (Trade) Dose Ordered Sig/Adam Start Time Stop Time Status Last Admin Dose Admin Albuterol/ Ipratropium (Duoneb) 3 ml 1X ONCE 07/19/17 04:30 07/19/17 04:31 UNV Prednisone (Prednisone) 60 mg 1X ONCE 07/19/17 04:30 07/19/17 04:31 UNV Allergies Allergies Allergies Coded Allergies Type Severity Reaction Last Updated Verified No Known Drug Allergies 03/02/16 No Physical Exam Physical Exam Constitutional: Well developed, well nourished, no acute distress, non-toxic appearance. HENT: Normocephalic, atraumatic, TM clear without erythema; bilateral external ears normal, Right keloid scar on ear lobe. oropharynx moist, no oral exudates, nose normal. Eyes: PERRLA, EOMI, conjunctiva normal, no discharge. Neck: Normal range of motion, no tenderness, supple, no stridor. Cardiovascular:Heart rate regular rhythm, no murmur Lungs & Thorax: Bilateral breath sounds with wheezing; good air flow. Abdomen: Bowel sounds normal, soft, no tenderness, no masses, no pulsatile masses. Skin: Warm, dry, no erythema, no rash. Back: No tenderness, no CVA tenderness. Extremities: No tenderness, no cyanosis, no clubbing, ROM intact, no edema. No calf pain, swelling or tenderness. Neurologic: Alert and oriented X 3, normal motor function, normal sensory function, no focal deficits noted. Psychologic: Affect normal, judgement normal, mood normal. Current Patient Data Vital Signs Vital Signs Date Time Temp Pulse Resp B/P (MAP) Pulse Ox O2 Delivery O2 Flow Rate FiO2 07/19/17 04:05 98.4 90 24 99 Room Air 98.4 Course & Med Decision Making Course & Med Decision Making Evaluated patient. Duoneb here with prednisone 60 po. She has post viral bronchospasm and exacerbation. No indication for antibiotic therapy at this time. Duoneb and Inhaler refilled and Rx prednisone. I have spoken with the patient and/or caregivers. I have explained the patient' s condition, diagnosis and treatment plan based on the information available to me at this time. I have answered the patient's and/or caregiver's questions and addressed any concerns. The patient and/or caregivers have as good an understanding of the patient's diagnosis, condition and treatment plan as can be expected at this point. The patient's condition is stable and appropriate for discharge from the emergency department. The patient will pursue further outpatient evaluation with the primary care physician or other designated or consulting physician as outlined in the discharge instructions. The patient and/or caregivers are agreeable to this plan of care and follow-up instructions have been explained in detail. The patient and/or caregivers have received these instructions in written format and have expressed an understanding of the discharge instructions. The patient and/or caregivers are aware that any significant change in condition or worsening of symptoms should prompt an immediate return to this or the closest emergency department or a call to 911. Nikki Disclaimer Nikki Disclaimer This electronic medical record was generated, in whole or in part, using a voice recognition dictation system. Departure Departure Impression: Primary Impression: Asthma exacerbation Disposition: HOME, SELF-CARE Condition: STABLE Referrals: NO PCP (PCP) Patient Instructions: Asthma Attacks, Prevention, Asthma, Acute Bronchospasm Additional Instructions: YOU WERE GIVEN A BREATHING TREATMENT HERE AND YOUR FIRST DOSE OF PREDNISONE. Scripts Ipratropium/Albuterol Sulfate (DUONEB 0.5-3(2.5) MG/3 ML) 3 Ml Ampul.neb 3 ML NEB QID for 30 Days, #120 EACH Prov: MARY BOSE MD 07/19/17 Albuterol Sulfate (PROAIR HFA INHALER) 8.5 Gm Hfa.aer.ad 1 PUFF INH PRN Q6HRS Y for SHORTNESS OF BREATH, #1 INHALER 0 Refills Prov: MARY BOSE MD 07/19/17 Methylprednisolone (MEDROL) 4 Mg Tab.ds.pk 1 PKG PO UD, #1 PKG Prov: MARY BOSE MD 07/19/17 Problem Qualifiers Primary Impression: Asthma exacerbation Asthma severity: moderate Asthma persistence: persistent Qualified Codes: J45.41 - Moderate persistent asthma with (acute) exacerbation MARY BOSE MD Jul 19, 2017 04:34
[2017-07-19 04:55] VITALS: BP 132/69
== END 2017-07-19 04:56 | disposition home or self-care (01) ==
LOC: ER 04:04
DX: J45.41 Moderate persistent asthma with (acute) exacerbation (principal)
CPT/HCPCS: 94250; 94640; 99283; J7512; J7620

== ENCOUNTER 2017-11-09 09:40 | Emergency (ER) | payer SELFPAY ==
[2017-11-09 10:19] LABS: URINE HCG POC HCG NEGATIVE (Negative)
[2017-11-09 10:30] LABS: BILIRUBIN,URINE NEGATIVE (NEG); CLARITY,URINE CLEAR; COLOR,URINE YELLOW; GLUCOSE,URINE NEGATIVE (NEG); NITRITE,URINE NEGATIVE (NEG); PH,URINE 5.5; PROTEIN,URINE NEGATIVE (NEG-TRACE); UROBILINOGEN,URINE 0.2 mg/dL (0.2 mg/dL)
[2017-11-09 10:45] LABS: SQUAMOUS EPITHELIAL CELL,UR MOD /LPF
[2017-11-09 10:46] LABS: BACTERIA,URINE 0 /HPF (0-FEW); RBC,URINE 0 /HPF (0-2); WBC,URINE OCC /HPF (0-4)
[2017-11-09] MEDS: ONDANSETRON PF 4 MG/2 ML VIAL. IV (10:57)
[2017-11-09] MEDS: KETOROLAC 30 MG/ML INJ. IV (10:57)
[2017-11-09] MEDS: IV NORMAL SALINE 1000ML BAG 1,000 ML IV (10:57)
[2017-11-09 10:58] LABS: ADD MAN DIFF? NO
[2017-11-09 11:01] LABS: BASO % 0 % (0-3); EOS # 0.3 x10^3/uL (0.0-0.7); EOS % 3 % (0-3); HEMOGLOBIN 13.4 g/dL (12.0-15.5); LYMPH # 1.1 x10^3/uL (1.0-4.8); LYMPH % 13 % (24-48); MEAN CORPUSCULAR HEMOGLOBIN 29 pg (25-35); MEAN CORPUSCULAR HGB CONC 33 g/dL (31-37); MEAN CORPUSCULAR VOLUME 87 fL (79-100); MONO # 0.6 x10^3/uL (0.0-1.1); MONO % 7 % (0-9); NEUT # 6.3 x10^3uL (1.8-7.7); NEUT % 76 % (31-73); PLATELET COUNT 267 x10^3/uL (140-400); RED BLOOD COUNT 4.62 x10^6/uL (3.50-5.40); RED CELL DISTRIBUTION WIDTH 14.4 % (11.5-14.5); WHITE BLOOD COUNT 8.3 x10^3/uL (4.0-11.0)
[2017-11-09 11:17] LABS: ANION GAP 9 (6-14); BLOOD UREA NITROGEN 10 mg/dL (7-20); BUN/CREATININE RATIO 11 (6-20); CARBON DIOXIDE 22 mmol/L (21-32); CHLORIDE 105 mmol/L (98-107); CREATININE 0.9 mg/dL (0.6-1.0); GFR 92.3; GLUCOSE 80 mg/dL (70-99); POTASSIUM 3.9 mmol/L (3.5-5.1); SODIUM 136 mmol/L (136-145)
[2017-11-09 11:24] LABS: ALBUMIN 3.5 g/dL (3.4-5.0); ALBUMIN/GLOBULIN RATIO 0.8 (1.0-1.7); ALK PHOS 108 U/L (46-116); ALT (SGPT) 45 U/L (14-59); AST (SGOT) 23 U/L (15-37); LIPASE 69 U/L (73-393); TOTAL BILIRUBIN 0.6 mg/dL (0.2-1.0)
[2017-11-09] MEDS ORDERED: CONTRAST GIVEN MC (12:15)
[2017-11-09] MEDS: IOHEXOL 300 MG/ML 100ML VIAL. IV (12:20)
== END 2017-11-09 13:18 | disposition home or self-care (01) ==
LOC: ER 09:40
DX: R10.84 Generalized abdominal pain (principal); R11.2 Nausea with vomiting, unspecified; R10.31 Right lower quadrant pain; R10.13 Epigastric pain; R30.0 Dysuria; R19.7 Diarrhea, unspecified; E66.9 Obesity, unspecified; J45.909 Unspecified asthma, uncomplicated; Z68.41 Body mass index [BMI] 40.0-44.9, adult
CPT/HCPCS: 36415; 74177; 80053; 81001; 81025; 83690; 85025; 96361; 96374; 96375; 99285-25; J1885; J2405; J7030; Q9967

== ENCOUNTER 2017-12-29 14:28 | Emergency (ER) | payer SELFPAY ==
[2017-12-29 14:49] LABS: URINE HCG POC HCG NEGATIVE (Negative)
[2017-12-29 14:54] LABS: BILIRUBIN,URINE NEGATIVE (NEG); CLARITY,URINE CLEAR; COLOR,URINE AMBER; GLUCOSE,URINE NEGATIVE (NEG); NITRITE,URINE POSITIVE (NEG); PROTEIN,URINE NEGATIVE (NEG-TRACE); UROBILINOGEN,URINE 0.2 mg/dL (0.2 mg/dL)
[2017-12-29 15:27] LABS: BACTERIA,URINE MANY /HPF (0-FEW); RBC,URINE 20-40 /HPF (0-2); SQUAMOUS EPITHELIAL CELL,UR MANY /LPF; WBC,URINE 20-40 /HPF (0-4)
[2017-12-29 15:28] LABS: AMORPHOUS SEDIMENT,UR PRESENT /HPF
[2017-12-29] MEDS: AZITHROMYCIN 250 MG TABLET. PO (15:40)
[2017-12-29] MEDS: cefTRIAXone IM 250 MG VIAL IM (15:40)
[2017-12-29] MEDS: metroNIDAZOLE 500 MG TABLET PO (15:41)
== END 2017-12-29 15:57 | disposition home or self-care (01) ==
LOC: ER 14:28
DX: R30.0 Dysuria (principal); J45.909 Unspecified asthma, uncomplicated
CPT/HCPCS: 81001; 81025; 87491; 87591; 96372; 99284; J0696; Q0144

== ENCOUNTER 2018-01-23 10:37 | Emergency (ER) | payer SELFPAY ==
[2018-01-23] MEDS: predniSONE 10 MG TABLET PO (11:31)
[2018-01-23] MEDS: IPRATRPIUM/ALBUTEROL 0.5/2.5MG 3 ML NEBU. NEB (11:41)
== END 2018-01-23 12:28 | disposition home or self-care (01) ==
LOC: ER 10:37
DX: J45.901 Unspecified asthma with (acute) exacerbation (principal)
CPT/HCPCS: 94640; 99283; J7512; J7620

== ENCOUNTER 2018-02-05 10:21 | Emergency (ER) | payer SELFPAY ==
[2018-02-05 12:17] LABS: URINE HCG POC HCG NEGATIVE (Negative)
[2018-02-05 12:28] LABS: BILIRUBIN,URINE NEGATIVE (NEG); CLARITY,URINE CLEAR; COLOR,URINE YELLOW; GLUCOSE,URINE NEGATIVE (NEG); NITRITE,URINE NEGATIVE (NEG); PROTEIN,URINE NEGATIVE (NEG-TRACE); UROBILINOGEN,URINE 0.2 mg/dL (0.2 mg/dL)
[2018-02-05 12:35] LABS: BACTERIA,URINE 0 /HPF (0-FEW); RBC,URINE >40 /HPF (0-2); WBC,URINE 0 /HPF (0-4)
[2018-02-05 12:36] LABS: SQUAMOUS EPITHELIAL CELL,UR MOD /LPF
== END 2018-02-05 14:16 | disposition home or self-care (01) ==
LOC: ER 10:21
DX: N94.6 Dysmenorrhea, unspecified (principal); J45.909 Unspecified asthma, uncomplicated
CPT/HCPCS: 81001; 81025; 99283

== ENCOUNTER 2018-03-08 17:24 | Emergency (ER) | payer OTHER ==
[2018-03-08 18:37] LABS: URINE HCG POC HCG NEGATIVE (Negative)
[2018-03-08] MEDS: IV NORMAL SALINE 1000ML BAG 1,000 ML IV (19:18)
[2018-03-08 19:29] LABS: BILIRUBIN,URINE NEGATIVE (NEG); CLARITY,URINE CLEAR; COLOR,URINE YELLOW; GLUCOSE,URINE NEGATIVE (NEG); NITRITE,URINE NEGATIVE (NEG); PROTEIN,URINE NEGATIVE (NEG-TRACE); UROBILINOGEN,URINE 0.2 mg/dL (0.2 mg/dL)
[2018-03-08] MEDS ORDERED: KETOROLAC 30 MG/ML INJ. IV (19:30)
[2018-03-08 19:41] LABS: AMORPHOUS SEDIMENT,UR PRESENT /HPF; BACTERIA,URINE FEW /HPF (0-FEW); RBC,URINE 0 /HPF (0-2); SQUAMOUS EPITHELIAL CELL,UR FEW /LPF
[2018-03-08 19:44] LABS: ADD MAN DIFF? NO
[2018-03-08 19:46] LABS: BASO # 0.1 x10^3/uL (0.0-0.2); BASO % 1 % (0-3); EOS # 0.3 x10^3/uL (0.0-0.7); EOS % 5 % (0-3); HEMATOCRIT 37.8 % (36.0-47.0); HEMOGLOBIN 12.8 g/dL (12.0-15.5); LYMPH # 2.8 x10^3/uL (1.0-4.8); LYMPH % 43 % (24-48); MEAN CORPUSCULAR HEMOGLOBIN 29 pg (25-35); MEAN CORPUSCULAR HGB CONC 34 g/dL (31-37); MEAN CORPUSCULAR VOLUME 85 fL (79-100); MONO # 0.5 x10^3/uL (0.0-1.1); MONO % 8 % (0-9); NEUT # 2.8 x10^3uL (1.8-7.7); NEUT % 44 % (31-73); PLATELET COUNT 291 x10^3/uL (140-400); RED BLOOD COUNT 4.47 x10^6/uL (3.50-5.40); RED CELL DISTRIBUTION WIDTH 14.7 % (11.5-14.5); WHITE BLOOD COUNT 6.5 x10^3/uL (4.0-11.0)
[2018-03-08 19:55] LABS: ANION GAP 13 (6-14); BLOOD UREA NITROGEN 11 mg/dL (7-20); BUN/CREATININE RATIO 11 (6-20); CALCIUM 8.5 mg/dL (8.5-10.1); CARBON DIOXIDE 24 mmol/L (21-32); CHLORIDE 105 mmol/L (98-107); GFR 81.7; GLUCOSE 87 mg/dL (70-99); POTASSIUM 3.5 mmol/L (3.5-5.1); SODIUM 142 mmol/L (136-145)
[2018-03-08 20:02] LABS: ALBUMIN/GLOBULIN RATIO 1.1 (1.0-1.7); ALK PHOS 85 U/L (46-116); ALT (SGPT) 30 U/L (14-59); AST (SGOT) 13 U/L (15-37); LIPASE 93 U/L (73-393); TOTAL BILIRUBIN 0.5 mg/dL (0.2-1.0); TOTAL PROTEIN 7.7 g/dL (6.4-8.2)
[2018-03-08] MEDS: KETOROLAC 60 MG/2 ML INJ. IM (20:14)
[2018-03-08] MEDS: CEPHALEXIN 250 MG CAPSULE. PO (20:52)
== END 2018-03-08 20:53 | disposition home or self-care (01) ==
LOC: ER 17:24
DX: N39.0 Urinary tract infection, site not specified (principal); J45.909 Unspecified asthma, uncomplicated
CPT/HCPCS: 36415; 74176; 80053; 81001; 81025; 83690; 83735; 85025; 96372; 96374; 99285-25; J1885

== ENCOUNTER 2018-03-13 15:20 | Emergency (ER) | payer OTHER ==
[2018-03-13 15:38] LABS: URINE HCG POC HCG NEGATIVE (Negative)
[2018-03-13 15:40] LABS: BILIRUBIN,URINE NEGATIVE (NEG); CLARITY,URINE CLEAR; COLOR,URINE YELLOW; GLUCOSE,URINE NEGATIVE (NEG); NITRITE,URINE NEGATIVE (NEG); PH,URINE 6.5; PROTEIN,URINE NEGATIVE (NEG-TRACE); UROBILINOGEN,URINE 0.2 mg/dL (0.2 mg/dL)
[2018-03-13 15:50] LABS: BACTERIA,URINE 0 /HPF (0-FEW); SQUAMOUS EPITHELIAL CELL,UR MOD /LPF; WBC,URINE 0 /HPF (0-4)
[2018-03-14 15:48] LABS: CHLAMYDIA PROBE Negative (Negative); GC PROBE Negative (Negative)
== END 2018-03-13 17:54 | disposition home or self-care (01) ==
LOC: ER 15:20
DX: R10.31 Right lower quadrant pain (principal); M54.5 Low back pain; R11.2 Nausea with vomiting, unspecified; J45.909 Unspecified asthma, uncomplicated
CPT/HCPCS: 36415; 76830; 76856; 81001; 81025; 87491; 87591; 99285-25; Q0111

== ENCOUNTER 2018-03-28 15:29 | Emergency (ER) | payer OTHER ==
[2018-03-28 17:33] LABS: BILIRUBIN,URINE NEGATIVE (NEG); CLARITY,URINE CLEAR; COLOR,URINE YELLOW; GLUCOSE,URINE NEGATIVE (NEG); NITRITE,URINE NEGATIVE (NEG); PROTEIN,URINE NEGATIVE (NEG-TRACE); UROBILINOGEN,URINE 0.2 mg/dL (0.2 mg/dL)
[2018-03-28 17:33] LABS: URINE HCG POC HCG NEGATIVE (Negative)
[2018-03-28 17:39] LABS: BARBITURATES NEG (NEG); BENZODIAZEPINES NEG (NEG); CANNABINOIDS NEG (NEG); COCAINE NEG (NEG); METHADONE NEG (NEG); OPIATES POS (NEG); PHENCYCLIDINE NEG (NEG)
[2018-03-28 17:40] LABS: AMPHETAMINE/METHAMPHETAMINE NEG (NEG); BACTERIA,URINE FEW /HPF (0-FEW); ETHANOL, URINE NEG (NEG); SQUAMOUS EPITHELIAL CELL,UR MOD /LPF
[2018-03-28 17:41] LABS: RBC,URINE 0 /HPF (0-2); WBC,URINE OCC /HPF (0-4)
[2018-03-28 17:48] LABS: ADD MAN DIFF? NO
[2018-03-28 17:51] LABS: BASO # 0.1 x10^3/uL (0.0-0.2); BASO % 1 % (0-3); EOS # 0.3 x10^3/uL (0.0-0.7); EOS % 4 % (0-3); HEMATOCRIT 39.7 % (36.0-47.0); HEMOGLOBIN 13.3 g/dL (12.0-15.5); LYMPH # 2.4 x10^3/uL (1.0-4.8); LYMPH % 37 % (24-48); MEAN CORPUSCULAR HEMOGLOBIN 29 pg (25-35); MEAN CORPUSCULAR HGB CONC 34 g/dL (31-37); MEAN CORPUSCULAR VOLUME 85 fL (79-100); MONO # 0.6 x10^3/uL (0.0-1.1); MONO % 9 % (0-9); NEUT # 3.2 x10^3uL (1.8-7.7); NEUT % 49 % (31-73); PLATELET COUNT 282 x10^3/uL (140-400); RED BLOOD COUNT 4.67 x10^6/uL (3.50-5.40); RED CELL DISTRIBUTION WIDTH 14.5 % (11.5-14.5); WHITE BLOOD COUNT 6.4 x10^3/uL (4.0-11.0)
[2018-03-28 18:01] LABS: ANION GAP 8 (6-14); BLOOD UREA NITROGEN 17 mg/dL (7-20); BUN/CREATININE RATIO 17 (6-20); CALCIUM 8.8 mg/dL (8.5-10.1); CARBON DIOXIDE 26 mmol/L (21-32); CHLORIDE 104 mmol/L (98-107); GFR 81.7; GLUCOSE 85 mg/dL (70-99); POTASSIUM 4.6 mmol/L (3.5-5.1); SODIUM 138 mmol/L (136-145)
[2018-03-28 18:07] LABS: ALBUMIN 3.8 g/dL (3.4-5.0); ALK PHOS 104 U/L (46-116); ALT (SGPT) 35 U/L (14-59); AST (SGOT) 19 U/L (15-37); TOTAL BILIRUBIN 0.3 mg/dL (0.2-1.0); TOTAL PROTEIN 7.8 g/dL (6.4-8.2)
[2018-03-28 18:12] LABS: TROPONINI < 0.017 ng/mL (0.000-0.055)
== END 2018-03-28 18:46 | disposition home or self-care (01) ==
LOC: ER 15:29
DX: R07.89 Other chest pain (principal); J45.21 Mild intermittent asthma with (acute) exacerbation
CPT/HCPCS: 36415; 71046; 80053; 80307; 81001; 81025; 84484; 85025; 93005; 99285-25

== ENCOUNTER 2018-04-17 10:36 | Emergency (ER) | payer OTHER ==
[~2018-04-17] VITALS: Ht 154.9 cm; Wt 88.5 kg
[~2018-04-17 10:36] MED LIST changes: +ALBU2.5V14 NEB; +DOXY100T9 PO; +HYDR-971 PO; +IBUP-1027 PO; +IPRA3AMP29 NEB; +METH4TAB2 PO; +NAPR-514 PO; +NAPR-695 PO; -NAPR500T4 PO; +ONDA4TAB10 SL; +PHEN-318 PO
[2018-04-17 11:12] VITALS: BP 123/96
[2018-04-17] MEDS ORDERED: IBUPROFEN 600 MG TABLET. PO ONE (12:12)
[2018-04-17] MEDS ORDERED: predniSONE 20 MG TABLET ONE (12:12)
[2018-04-17] MEDS ORDERED: IPRATRPIUM/ALBUTEROL 0.5/2.5MG 3 ML NEBU. ONE (12:21)
[2018-04-17] MEDS: predniSONE 20 MG TABLET PO ONE (12:30)
[2018-04-17] MEDS: IBUPROFEN 600 MG TABLET. PO ONE (12:30)
[2018-04-17] MEDS: IPRATRPIUM/ALBUTEROL 0.5/2.5MG 3 ML NEBU. NEB ONE (12:38)
--- NOTE | 2018-04-17 13:12 | PHYS DOC ---
Past Medical History Past Medical History: Asthma Additional Past Medical Histor: "KELOID SKIN" Past Surgical History: Other Additional Past Surgical Histo: RIGHT EAR Alcohol Use: Occasionally Drug Use: None Adult General Chief Complaint Chief Complaint: ASTHMA HPI HPI 27 y/o female presents to ER for c/o asthma exacerbation which started on Monday and gradually worsened this morning. She denies fever/chills, swelling in extremities, or fatigue. She reports she has occas. nonprod. cough denying any CP/palpitations. She has been using her inhaler more frequently. She reports she has intermittent lt side rib pain during coughing episode. Pt reports she took tylenol and ibuprofen this morning. She denies being a smoker. She denies any recent traveling. Review of Systems Review of Systems Constitutional: Denies fever or chills [] Eyes: Denies change in visual acuity, redness, or eye pain [] HENT: Denies nasal congestion or sore throat [] Respiratory: Denies shortness of breath. Reports intermittent nonprod. cough. Reports lt side rib pain with coughing episodes Cardiovascular: Denies CP/palpitations. GI: Denies abdominal pain, nausea, vomiting, bloody stools or diarrhea [] : Denies dysuria or hematuria [] Musculoskeletal: Denies back/neck pain or joint pain [] Integument: Denies rash or skin lesions [] Neurologic: Denies headache, focal weakness or sensory changes [] All other systems were reviewed and found to be within normal limits, except as documented in this note. Current Medications Current Medications Current Medications Medications (Trade) Dose Ordered Sig/Adam Start Time Stop Time Status Last Admin Dose Admin Albuterol/ Ipratropium (Duoneb) 3 ml 1X ONCE 04/17/18 12:30 04/17/18 12:31 DC 04/17/18 12:38 3 ML Ibuprofen (Motrin) 600 mg 1X ONCE 04/17/18 12:30 04/17/18 12:31 DC 04/17/18 12:30 600 MG Prednisone (Prednisone) 40 mg 1X ONCE 04/17/18 12:30 04/17/18 12:31 DC 04/17/18 12:30 40 MG Allergies Allergies Allergies Coded Allergies Type Severity Reaction Last Updated Verified No Known Drug Allergies 03/02/16 No Physical Exam Physical Exam Constitutional: Well developed, well nourished, no acute distress, non-toxic appearance. [] HENT: Normocephalic, atraumatic, bilateral ears normal, mucous membranes pink/ moist, no oral exudates, nose normal. [] Eyes: PERRLA, conjunctiva normal, no discharge. [] Neck: Normal range of motion, no tenderness, supple, no gross adenopathy Cardiovascular:Heart rate regular rhythm, no murmur [] Lungs & Thorax: Bilateral breath sounds clear to auscultation- diminished in bases. Resp. equal/nonlabored- mild tenderness lt lateral ribs with no crepitus/ deformity. Speaking in full sentences Abdomen: Bowel sounds normal, soft, no tenderness, no masses, no pulsatile masses. [] Skin: Warm, dry, no erythema, no rash. [] Back: No tenderness- full ROM Extremities: No tenderness, no cyanosis, no clubbing, ROM intact, no edema. [] Neurologic: Alert and oriented X 3, normal motor function, normal sensory function, no focal deficits noted. [] Psychologic: Affect normal, judgement normal, mood normal. [] Current Patient Data Vital Signs Vital Signs Date Time Temp Pulse Resp B/P (MAP) Pulse Ox O2 Delivery O2 Flow Rate FiO2 04/17/18 12:37 Nasal Cannula 04/17/18 12:25 98 04/17/18 11:12 97.9 78 18 123/96 (105) 97.9 EKG EKG [] Radiology/Procedures Radiology/Procedures [] Course & Med Decision Making Course & Med Decision Making Pt received 2 Duoneb txs and dose of prednisone while in ER and reports sxs have improved. On re-exam she has increased air movement thru all lobes. She in no visible distress with equal/nonlabored resp. Pt reports she feels comfortable with no additional tx as sxs have improved. Discharge instructions were discussed and education provided on s&s to return to ER for. Will provide Rx for prednisone 40mg for 4 additional days. Will provide clinic/physicians to call to establish PCP. Dragon Disclaimer Dragon Disclaimer This electronic medical record was generated, in whole or in part, using a voice recognition dictation system. Departure Departure Impression: Primary Impression: Asthma exacerbation Disposition: HOME, SELF-CARE Condition: IMPROVED Referrals: NO PCP (PCP) SOFYA TINEO VOCATIONAL NURSING INSTRUCTOR Apr 17, 2018 13:12
== END 2018-04-17 13:05 | disposition home or self-care (01) ==
LOC: ER 10:36
DX: J45.901 Unspecified asthma with (acute) exacerbation (principal)
CPT/HCPCS: 94640; 99283; J7512; J7620

== ENCOUNTER 2018-04-25 22:40 | Emergency (ER) | payer OTHER ==
[~2018-04-25] VITALS: Ht 160 cm; Wt 90.7 kg
[2018-04-25] MEDS ORDERED: ALBUTEROL SULFATE 2.5 MG/3 ML NEBU. NEB ONE (23:15)
[2018-04-26] MEDS ORDERED: FLUT10.6 IH (00:49)
[2018-04-26] MEDS ORDERED: PROAIR HFA8.5 GM INH (00:49)
--- NOTE | 2018-04-26 00:49 | PHYS DOC ---
Past Medical History Past Medical History: Asthma Additional Past Medical Histor: "KELOID SKIN" Past Surgical History: Other Additional Past Surgical Histo: RIGHT EAR Alcohol Use: Occasionally Drug Use: None Adult General Chief Complaint Chief Complaint: ASTHMA HPI HPI Patient is a 27 year old female who presents to the emergency Department today with complaints of an asthma attack that started at work at approximately 2140. She reports feeling short of breath and wheezing with the onset of her chest tightness. She denies any chest pain, runny nose, nasal congestion, fever, nausea, vomiting, diarrhea, abdominal pain. She states that her chest feels tight and she has had a dry cough lately. Patient states that she has been having to use her inhaler at least 3 times a day and has been having to take at least 2 breathing treatments every day. She does not currently have a primary care provider. States that tightness in her chest is currently an 8 out of 10 on the pain scale. Her symptoms have improved after receiving 1 DuoNeb treatment by EMS in route to the hospital. Review of Systems Review of Systems Constitutional: Denies fever or chills [] Eyes: Denies change in visual acuity, redness, or eye pain [] HENT: Denies nasal congestion, ear pain, runny nose; reports mild sore throat [] Respiratory: Reports dry cough, chest tightness, wheezing, and shortness of breath that increased at approximately 940 this evening. Cardiovascular: Denies chest pain or palpitations, reports tightness in chest. GI: Denies abdominal pain, nausea, or vomiting, Musculoskeletal: Denies back pain or joint pain [] Integument: Denies rash or skin lesions [] Neurologic: Denies headache, focal weakness or sensory changes [] Current Medications Current Medications Current Medications Medications (Trade) Dose Ordered Sig/Adam Start Time Stop Time Status Last Admin Dose Admin Albuterol Sulfate (Ventolin Neb Soln) 2.5 mg 1X ONCE 04/25/18 23:15 04/25/18 23:16 DC 04/25/18 23:36 2.5 MG Allergies Allergies Allergies Coded Allergies Type Severity Reaction Last Updated Verified No Known Drug Allergies 03/02/16 No Physical Exam Physical Exam Constitutional: Well developed, well nourished, no acute distress, non-toxic appearance, obese. [] HENT: Normocephalic, atraumatic, bilateral external ears normal, oropharynx moist, posterior pharynx normal, no oral exudates, nose normal. [] Eyes: normal Neck: Normal range of motion, no tenderness, supple, no stridor. [] Cardiovascular:Heart rate regular rhythm, no murmur [] Lungs & Thorax: Bilateral breath sounds clear to auscultation with scattered expiratory wheezes [] Skin: Warm, dry, no erythema, no rash. [] Extremities: No cyanosis, no clubbing, no edema. [] Neurologic: Alert and oriented X 3, normal motor function, normal sensory function, no focal deficits noted. [] Psychologic: Affect normal, judgement normal, mood normal. [] Current Patient Data Vital Signs Vital Signs Date Time Temp Pulse Resp B/P (MAP) Pulse Ox O2 Delivery O2 Flow Rate FiO2 04/25/18 23:37 100 Room Air 04/25/18 22:42 98.6 96 16 138/72 (94) 98.6 EKG EKG [] Radiology/Procedures Radiology/Procedures [] Course & Med Decision Making Course & Med Decision Making Pertinent Labs and Imaging studies reviewed. (See chart for details) Asthma exacerbation, patient was given one breathing treatment in the emergency department. Lung sounds are clear throughout all underwood following the breathing treatment, patient reported feeling better. Prescriptions written for Pro Air inhaler and Flovent. Patient advised to follow-up with a primary care doctor in the next 1-2 days. Patient verbalized an understanding of home care, medications , follow-up, and return to ED instructions and was in agreement with the plan of care. [] Dragon Disclaimer Dragon Disclaimer This electronic medical record was generated, in whole or in part, using a voice recognition dictation system. Departure Departure Impression: Primary Impression: Asthma exacerbation Disposition: 01 HOME, SELF-CARE Condition: IMPROVED Referrals: NO PCP (PCP) Patient Instructions: Asthma, Adult, [id number] Additional Instructions: Fill prescription(s) and use as directed. Increase clear fluids. Avoid triggers such as smoke, fragrance, dust, and pollen. Follow-up with your primary care doctor in 1-2 days. Return to the emergency room if her symptoms worsen. Scripts Fluticasone Propionate (FLOVENT 44MCG HFA) 10.6 Gm Aer.w.adap 2 PUFF IH BID for 10 Days, #1 INHALER 0 Refills Prov: JESSICA FERNANDO APRN 04/26/18 Albuterol Sulfate (PROAIR HFA INHALER) 8.5 Gm Hfa.aer.ad 1-2 PUFF INH PRN Q4-6HRS PRN for SHORTNESS OF BREATH, #1 INHALER 1 Refill Prov: JESSICA FERNANDO IGNITION EXPERT 04/26/18 Problem Qualifiers Primary Impression: Asthma exacerbation Asthma severity: mild Asthma persistence: intermittent Qualified Codes: J45.21 - Mild intermittent asthma with (acute) exacerbation JESSICA FERNANDO IGNITION EXPERT Apr 26, 2018 00:49
[2018-04-26 01:00] VITALS: BP 141/84
== END 2018-04-26 01:00 | disposition home or self-care (01) ==
LOC: ER 22:40
DX: J45.21 Mild intermittent asthma with (acute) exacerbation (principal)
CPT/HCPCS: 94640; 99283; J7613

== ENCOUNTER 2018-05-23 15:51 | Emergency (ER) | payer OTHER ==
[~2018-05-23] VITALS: Ht 157.5 cm; Wt 102.1 kg
[~2018-05-23 15:51] MED LIST changes: +FLUT10.6 IH
[2018-05-23 17:22] VITALS: BP 135/63
[2018-05-23 17:28] LABS: BILIRUBIN,URINE NEGATIVE (NEG); CLARITY,URINE CLEAR; COLOR,URINE YELLOW; NITRITE,URINE NEGATIVE (NEG); PROTEIN,URINE NEGATIVE (NEG-TRACE); UROBILINOGEN,URINE 0.2 mg/dL (0.2 mg/dL)
[2018-05-23 17:38] LABS: BACTERIA,URINE 0 /HPF (0-FEW); RBC,URINE 0 /HPF (0-2); SQUAMOUS EPITHELIAL CELL,UR MOD /LPF; WBC,URINE 0 /HPF (0-4)
[2018-05-23 18:13] LABS: U PREG PATIENT NEGATIVE (NEG)
--- NOTE | 2018-05-23 18:36 | PHYS DOC ---
Past Medical History Past Medical History: Asthma Additional Past Medical Histor: "KELOID SKIN" Past Surgical History: Other Additional Past Surgical Histo: RIGHT EAR Alcohol Use: Occasionally Drug Use: None Adult General Chief Complaint Chief Complaint: ABDOMINAL PAIN HPI HPI Patient is a 27 year old female with history of asthma, who presents today complaining of mild pelvic pain, increased vaginal discharge, lower back pain and slight dysuria for week. Patient also complains of an episode of vomiting. She states she's had similar abdominal pain before and has been worked up with nothing acute being found. She states she would like a note for work as well as. Patient denies any chance she is . Denies any concerns for STDS Review of Systems Review of Systems Constitutional: Denies fever or chills [] Eyes: Denies change in visual acuity, redness, or eye pain [] HENT: Denies nasal congestion or sore throat [] Respiratory: Denies cough or shortness of breath [] Cardiovascular: No additional information not addressed in HPI [] GI: Reports pelvic pain, one episode of vomiting, vaginal discharge, denies nausea, bloody stools or diarrhea [] : Denies dysuria or hematuria [] Musculoskeletal: Denies back pain or joint pain [] Integument: Denies rash or skin lesions [] Neurologic: Denies headache, focal weakness or sensory changes [] All other systems were reviewed and found to be within normal limits, except as documented in this note. Allergies Allergies Allergies Coded Allergies Type Severity Reaction Last Updated Verified No Known Drug Allergies 03/02/16 No Physical Exam Physical Exam Constitutional: Well developed, well nourished, no acute distress, non-toxic appearance. [] HENT: Normocephalic, atraumatic, bilateral external ears normal, oropharynx moist, no oral exudates, nose normal. [] Eyes: PERRLA, EOMI, conjunctiva normal, no discharge. [] Neck: Normal range of motion, no tenderness, supple, no stridor. [] Cardiovascular:Heart rate regular rhythm, no murmur [] Lungs & Thorax: Bilateral breath sounds clear to auscultation [] Abdomen: Overweight patient. Bowel sounds normal, soft, no tenderness, no masses , no pulsatile masses. [] Pelvic exam External pelvic appears normal, cervix not well visualized due to body habitus. Small amount of white discharge in the vaginal vault, no CMT, no adnexal tenderness. Skin: Warm, dry, no erythema, no rash. [] Back: No tenderness, no CVA tenderness. [] Extremities: No tenderness, no cyanosis, no clubbing, ROM intact, no edema. [] Neurologic: Alert and oriented X 3, normal motor function, normal sensory function, no focal deficits noted. [] Psychologic: Affect normal, judgement normal, mood normal. [] Current Patient Data Vital Signs Vital Signs Date Time Temp Pulse Resp B/P (MAP) Pulse Ox O2 Delivery O2 Flow Rate FiO2 05/23/18 17:22 73 135/63 (87) 99 05/23/18 16:25 98.9 16 Room Air 98.9 Lab Values Laboratory Tests Test 05/23/18 17:15 Urine Collection Type Unknown Urine Color Yellow Urine Clarity Clear Urine pH 6.0 Urine Specific [place] 1.020 Urine Protein Negative mg/dL (NEG-TRACE) Urine Glucose (UA) Negative mg/dL (NEG) Urine Ketones (Stick) Negative mg/dL (NEG) Urine Blood Negative (NEG) Urine Nitrite Negative (NEG) Urine Bilirubin Negative (NEG) Urine Urobilinogen Dipstick 0.2 mg/dL (0.2 mg/dL) Urine Leukocyte Esterase Negative (NEG) Urine RBC 0 /HPF (0-2) Urine WBC 0 /HPF (0-4) Urine Squamous Epithelial Cells Mod /LPF Urine Bacteria 0 /HPF (0-FEW) Urine Mucus Mod /LPF Urine Test Negative (NEG) Microbiology 05/23/18 Wet Prep - Final, Complete EKG EKG [] Radiology/Procedures Radiology/Procedures [] Course & Med Decision Making Course & Med Decision Making Pertinent Labs and Imaging studies reviewed. (See chart for details) This is a 27-year-old female patient presented to the ED today complaining of dysuria, low back pain, pelvic pain, vaginal discharge. Negative urine hCG, urine analysis is negative for infection. Wet prep positive for BV. I discharged with diclofenac and cyclobenzaprine for her back pain. Discharged with Flagyl. Follow-up with PAVING RAMMER or PCP in 1-2 weeks if symptoms continue. Work note provided for today per her request. Dragon Disclaimer Dragon Disclaimer This electronic medical record was generated, in whole or in part, using a voice recognition dictation system. Departure Departure Impression: Primary Impression: Bacterial vaginosis Additional Impression: Back pain Disposition: 01 HOME, SELF-CARE Condition: STABLE Referrals: NO PCP (PCP) DARNELL NORMAN MD follow up in one week Patient Instructions: Back Pain, Adult, [id number], Bacterial Vaginosis, Easy -to-Read Additional Instructions: Your evaluation in the emergency room shows have bacterial vaginosis, take the prescribed medications as ordered until completed. Follow-up with your doctor in 1-2 weeks. Scripts Ibuprofen (IBUPROFEN) 600 Mg Tablet 600 MG PO PRN Q6HRS PRN for INFLAMMATION, #30 TAB Prov: NICK ERICKSON APRN 05/23/18 Cyclobenzaprine Hcl (CYCLOBENZAPRINE HCL) 10 Mg Tablet 1 TAB PO TID, #30 TAB Prov: NICK ERICKSON APRN 05/23/18 Metronidazole (FLAGYL) 500 Mg Tablet 1 TAB PO BID, #14 TAB Prov: NICK ERICKSON APRN 05/23/18 Problem Qualifiers Additional Impression: Back pain Back pain location: low back pain Chronicity: chronic Back pain laterality : bilateral Sciatica presence: without sciatica Qualified Codes: M54.5 - Low back pain; G89.29 - Other chronic pain NICK ERICKSON APRN May 23, 2018 18:36
[2018-05-23] MEDS ORDERED: METR500T PO (18:43)
[2018-05-23] MEDS ORDERED: CYCL10TA2 PO (18:43)
[2018-05-23] MEDS ORDERED: IBUP-1007 PO (18:43)
[2018-05-24 14:32] LABS: GC PROBE Negative (Negative)
== END 2018-05-23 18:55 | disposition home or self-care (01) ==
LOC: ER 15:51
DX: N76.0 Acute vaginitis (principal); B96.89 Other specified bacterial agents as the cause of diseases classified elsewhere; G89.29 Other chronic pain; M54.5 Low back pain; R11.10 Vomiting, unspecified; J45.909 Unspecified asthma, uncomplicated
CPT/HCPCS: 81001; 81025; 87491; 87591; 99284; Q0111

== ENCOUNTER 2018-06-03 13:39 | Emergency (ER) | payer OTHER ==
[~2018-06-03] VITALS: Ht 154.9 cm; Wt 124.7 kg
[~2018-06-03 13:39] MED LIST changes: +CYCL10TA2 PO; +IBUP-1007 PO
[2018-06-03 13:52] VITALS: BP 109/58
--- NOTE | 2018-06-03 13:54 | PHYS DOC ---
Past Medical History Past Medical History: Asthma Additional Past Medical Histor: "KELOID SKIN" Past Surgical History: Other Additional Past Surgical Histo: RIGHT EAR Alcohol Use: Occasionally Drug Use: None Adult General Chief Complaint Chief Complaint: ABDOMINAL PAIN HPI HPI Patient is a 27 year old female with history of asthma who presents today complaining of bilateral upper abdominal pain rated at 9 out of 10 described as sharp and intermittent that has been going on since yesterday. Patient denies any nausea vomiting. Denies any chance she is . Denies any chance she is constipated. She states the pain was worse yesterday when she was trying to have a bowel movement. She also states she is currently on her menstrual cycle and has lower abdominal cramping. Review of Systems Review of Systems Constitutional: Denies fever or chills [] Eyes: Denies change in visual acuity, redness, or eye pain [] HENT: Denies nasal congestion or sore throat [] Respiratory: Denies cough or shortness of breath [] Cardiovascular: No additional information not addressed in HPI [] GI: Reports bilateral upper abdominal pain, reports menstrual cramping, denies nausea, vomiting, bloody stools or diarrhea [] : Denies dysuria or hematuria [] Musculoskeletal: Denies back pain or joint pain [] Integument: Denies rash or skin lesions [] Neurologic: Denies headache, focal weakness or sensory changes [] All other systems were reviewed and found to be within normal limits, except as documented in this note. Current Medications Current Medications Current Medications Medications (Trade) Dose Ordered Sig/[facility] Start Time Stop Time Status Last Admin Dose Admin Ketorolac Tromethamine (Toradol 30mg Vial) 30 mg 1X ONCE 06/03/18 14:00 06/03/18 14:01 DC 06/03/18 14:44 30 MG Allergies Allergies Allergies Coded Allergies Type Severity Reaction Last Updated Verified No Known Drug Allergies 03/02/16 No Physical Exam Physical Exam Constitutional: Well developed, well nourished, no acute distress, non-toxic appearance. [] HENT: Normocephalic, atraumatic, bilateral external ears normal, oropharynx moist, no oral exudates, nose normal. [] Eyes: PERRLA, EOMI, conjunctiva normal, no discharge. [] Neck: Normal range of motion, no tenderness, supple, no stridor. [] Cardiovascular:Heart rate regular rhythm, no murmur [] Lungs & Thorax: Bilateral breath sounds clear to auscultation [] Abdomen: Rounded abdomen. Bowel sounds normal, soft, no tenderness, no masses, no pulsatile masses. [] Skin: Warm, dry, no erythema, no rash. [] Back: No tenderness, no CVA tenderness. [] Extremities: No tenderness, no cyanosis, no clubbing, ROM intact, no edema. [] Neurologic: Alert and oriented X 3, normal motor function, normal sensory function, no focal deficits noted. [] Psychologic: Affect normal, judgement normal, mood normal. [] Current Patient Data Vital Signs Vital Signs Date Time Temp Pulse Resp B/P (MAP) Pulse Ox O2 Delivery O2 Flow Rate FiO2 06/03/18 13:52 98.1 79 14 109/58 (75) 95 Room Air 98.1 Lab Values Laboratory Tests Test 06/03/18 13:52 06/03/18 14:06 06/03/18 14:45 Urine Collection Type Unknown Urine Color Yellow Urine Clarity Clear Urine pH 6.0 Urine Specific [place] >=1.030 Urine Protein Negative mg/dL (NEG-TRACE) Urine Glucose (UA) Negative mg/dL (NEG) Urine Ketones (Stick) Negative mg/dL (NEG) Urine Blood Trace (NEG) Urine Nitrite Negative (NEG) Urine Bilirubin Negative (NEG) Urine Urobilinogen Dipstick 0.2 mg/dL (0.2 mg/dL) Urine Leukocyte Esterase Negative (NEG) Urine RBC Rare /HPF (0-2) Urine WBC 0 /HPF (0-4) Urine Squamous Epithelial Cells Occ /LPF Urine Bacteria 0 /HPF (0-FEW) Urine Mucus Mod /LPF Urine Opiates Screen Neg (NEG) Urine Methadone Screen Neg (NEG) Urine Barbiturates Neg (NEG) Urine Phencyclidine Screen Neg (NEG) Urine Amphetamine/Methamphetamine Neg (NEG) Urine Benzodiazepines Screen Neg (NEG) Urine Cocaine Screen Neg (NEG) Urine Cannabinoids Screen Neg (NEG) Urine Ethyl Alcohol Neg (NEG) POC Urine HCG, Qualitative Hcg negative (Negative) White Blood Count 6.6 x10^3/uL (4.0-11.0) Red Blood Count 4.49 x10^6/uL (3.50-5.40) Hemoglobin 13.0 g/dL (12.0-15.5) Hematocrit 38.3 % (36.0-47.0) Mean Corpuscular Volume 85 fL (79-100) Mean Corpuscular Hemoglobin 29 pg (25-35) Mean Corpuscular Hemoglobin Concent 34 g/dL (31-37) Red Cell Distribution Width 14.0 % (11.5-14.5) Platelet Count 283 x10^3/uL (140-400) Neutrophils (%) (Auto) 51 % (31-73) Lymphocytes (%) (Auto) 37 % (24-48) Monocytes (%) (Auto) 8 % (0-9) Eosinophils (%) (Auto) 4 % (0-3) H Basophils (%) (Auto) 1 % (0-3) Neutrophils # (Auto) 3.3 x10^3uL (1.8-7.7) Lymphocytes # (Auto) 2.4 x10^3/uL (1.0-4.8) Monocytes # (Auto) 0.5 x10^3/uL (0.0-1.1) Eosinophils # (Auto) 0.3 x10^3/uL (0.0-0.7) Basophils # (Auto) 0.0 x10^3/uL (0.0-0.2) Sodium Level 142 mmol/L (136-145) Potassium Level 4.2 mmol/L (3.5-5.1) Chloride Level 107 mmol/L (98-107) Carbon Dioxide Level 24 mmol/L (21-32) Anion Gap 11 (6-14) Blood Urea Nitrogen 12 mg/dL (7-20) Creatinine 0.8 mg/dL (0.6-1.0) Estimated GFR (Cockcroft-Gault) 105.8 BUN/Creatinine Ratio 15 (6-20) Glucose Level 84 mg/dL (70-99) Calcium Level 9.2 mg/dL (8.5-10.1) Total Bilirubin 0.3 mg/dL (0.2-1.0) Aspartate Amino Transferase (AST) 19 U/L (15-37) Alanine Aminotransferase (ALT) 40 U/L (14-59) Alkaline Phosphatase 98 U/L (46-116) Total Protein 7.5 g/dL (6.4-8.2) Albumin 4.1 g/dL (3.4-5.0) Albumin/Globulin Ratio 1.2 (1.0-1.7) Lipase 86 U/L (73-393) Ethyl Alcohol Level < 10 mg/dL (0-10) Laboratory Tests 06/03/18 14:45 Laboratory Tests 06/03/18 14:45 EKG EKG [] Radiology/Procedures Radiology/Procedures [] Course & Med Decision Making Course & Med Decision Making Pertinent Labs and Imaging studies reviewed. (See chart for details) This is a 27-year-old female patient presented to the ED today with complaints of bilateral upper abdominal pain as well as menstrual cramping that began yesterday. Negative urine hCG, UA negative for any acute findings, CBC CMP lipase with no acute findings. KUB interpreted by Dr. Dick is negative for any acute findings. Preliminary read ultrasound is negative. Patient was discharged to home, instructed to take [id number] pain relievers as needed. Provided GI for follow-up. Dragon Disclaimer Dragon Disclaimer This electronic medical record was generated, in whole or in part, using a voice recognition dictation system. Departure Departure Impression: Primary Impression: Unspecified abdominal pain Additional Impression: Menstrual cramp Disposition: HOME, SELF-CARE Condition: STABLE (() Referrals: NO PCP (PCP) ELISA ESPINO MD follow up in one week Patient Instructions: Abdominal Pain, Dysmenorrhea, [id number] Additional Instructions: You were evaluated in the emergency room for abdominal pain. We could not find any acute cause for your symptoms. Follow-up with the provided specialist in one week. Problem Qualifiers Primary Impression: Unspecified abdominal pain Abdominal location: upper abdomen, unspecified Qualified Codes: R10.10 - Upper abdominal pain, unspecified MUTUNGANICK HYDRAULIC PRESS TENDER Jun 03, 2018 13:53
[2018-06-03] MEDS ORDERED: KETOROLAC 30 MG/ML VIAL. IV ONE (14:00)
[2018-06-03 14:14] LABS: BILIRUBIN,URINE NEGATIVE (NEG); CLARITY,URINE CLEAR; COLOR,URINE YELLOW; NITRITE,URINE NEGATIVE (NEG); PROTEIN,URINE NEGATIVE (NEG-TRACE); UROBILINOGEN,URINE 0.2 mg/dL (0.2 mg/dL)
[2018-06-03 14:20] LABS: AMPHETAMINE/METHAMPHETAMINE NEG (NEG); BARBITURATES NEG (NEG); BENZODIAZEPINES NEG (NEG); CANNABINOIDS NEG (NEG); COCAINE NEG (NEG); METHADONE NEG (NEG); OPIATES NEG (NEG); PHENCYCLIDINE NEG (NEG)
[2018-06-03 14:29] LABS: BACTERIA,URINE 0 /HPF (0-FEW); RBC,URINE RARE /HPF (0-2); WBC,URINE 0 /HPF (0-4)
[2018-06-03 14:30] LABS: SQUAMOUS EPITHELIAL CELL,UR OCC /LPF
[2018-06-03 14:57] LABS: BASO % 1 % (0-3); EOS # 0.3 x10^3/uL (0.0-0.7); EOS % 4 % (0-3); HEMATOCRIT 38.3 % (36.0-47.0); LYMPH # 2.4 x10^3/uL (1.0-4.8); LYMPH % 37 % (24-48); MEAN CORPUSCULAR HEMOGLOBIN 29 pg (25-35); MEAN CORPUSCULAR HGB CONC 34 g/dL (31-37); MEAN CORPUSCULAR VOLUME 85 fL (79-100); MONO # 0.5 x10^3/uL (0.0-1.1); MONO % 8 % (0-9); NEUT # 3.3 x10^3uL (1.8-7.7); NEUT % 51 % (31-73); PLATELET COUNT 283 x10^3/uL (140-400); RED BLOOD COUNT 4.49 x10^6/uL (3.50-5.40); WHITE BLOOD COUNT 6.6 x10^3/uL (4.0-11.0)
[2018-06-03 15:08] LABS: CALCIUM 9.2 mg/dL (8.5-10.1); CREATININE 0.8 mg/dL (0.6-1.0); GFR 105.8; POTASSIUM 4.2 mmol/L (3.5-5.1)
[2018-06-03 15:13] LABS: ALBUMIN 4.1 g/dL (3.4-5.0); ALBUMIN/GLOBULIN RATIO 1.2 (1.0-1.7); TOTAL BILIRUBIN 0.3 mg/dL (0.2-1.0); TOTAL PROTEIN 7.5 g/dL (6.4-8.2)
--- NOTE | 2018-06-03 15:48 | RAD ---
EXAM: Abdomen, single view. HISTORY: Pain. COMPARISON: 02/06/2018 FINDINGS: Frontal views of the abdomen are obtained. There are nonspecific air-filled loops of bowel within the abdomen. There is no transition point to suggest obstruction. IMPRESSION: Nonobstructive bowel gas pattern. Electronically signed by: Hollie Urena MD (06/03/2018 3:45 PM) [facility]
--- NOTE | 2018-06-03 16:08 | RAD ---
EXAM: ABDOMINAL ULTRASOUND. HISTORY: Abdominal pain. COMPARISON: 03/08/2018. FINDINGS: Sonographic evaluation of the abdomen was performed. The liver appears normal in parenchymal echotexture. There are no focal lesions. The spleen measures 9.7 cm. The gallbladder is unremarkable without evidence of stones, wall thickening or pericholecystic fluid. There is no sonographic Goodwin sign. The common duct measures 2 mm. The visualized portions of the head of the pancreas reveal no abnormality. The right kidney measures 10.4 cm. Cortical thickness and echogenicity are preserved. There is no hydronephrosis. The left kidney measures 10.1 cm. Cortical thickness and echogenicity are preserved. There is no hydronephrosis. The visualized portions of the abdominal aorta and inferior vena cava are grossly patent and normal in caliber. IMPRESSION: 1. No cause for acute pain is identified. Electronically signed by: Yuly Mckeon MD (06/03/2018 4:05 PM) [facility]
== END 2018-06-03 16:34 | disposition home or self-care (01) ==
LOC: ER 13:39
DX: R10.11 Right upper quadrant pain (principal); R10.12 Left upper quadrant pain; N92.5 Other specified irregular menstruation; J45.909 Unspecified asthma, uncomplicated
CPT/HCPCS: 36415; 74018; 76700; 80053; 80307; 81001; 81025; 83690; 85025; 96374; 99285; G0480; J1885; G0479

== ENCOUNTER 2018-06-14 15:57 | Emergency (ER) | payer OTHER ==
[~2018-06-14] VITALS: Ht 154.9 cm; Wt 124.7 kg
--- NOTE | 2018-06-14 16:14 | PHYS DOC ---
Past Medical History Past Medical History: Asthma Additional Past Medical Histor: "KELOID SKIN" Past Surgical History: Other Additional Past Surgical Histo: RIGHT EAR Alcohol Use: Occasionally Drug Use: None Adult General Chief Complaint Chief Complaint: ASTHMA HPI HPI Patient is a 27 year old female with history of asthma who presents today complaining of shortness of breath and coughing since yesterday. Patient states she tried using her inhaler with no relief. Denies any fever. Review of Systems Review of Systems Constitutional: Denies fever or chills [] Eyes: Denies change in visual acuity, redness, or eye pain [] HENT: Denies nasal congestion or sore throat [] Respiratory: Reports cough and shortness of breath [] Cardiovascular: No additional information not addressed in HPI [] GI: Denies abdominal pain, nausea, vomiting, bloody stools or diarrhea [] : Denies dysuria or hematuria [] Musculoskeletal: Denies back pain or joint pain [] Integument: Denies rash or skin lesions [] Neurologic: Denies headache, focal weakness or sensory changes [] All other systems were reviewed and found to be within normal limits, except as documented in this note. Current Medications Current Medications Current Medications Medications (Trade) Dose Ordered Sig/Adam Start Time Stop Time Status Last Admin Dose Admin Albuterol/ Ipratropium (Duoneb) 3 ml 1X ONCE 06/14/18 16:15 06/14/18 16:16 DC 06/14/18 16:22 3 ML Prednisone (Prednisone) 50 mg 1X ONCE 06/14/18 16:15 06/14/18 16:16 DC 06/14/18 16:22 50 MG Allergies Allergies Allergies Coded Allergies Type Severity Reaction Last Updated Verified No Known Drug Allergies 03/02/16 No Physical Exam Physical Exam Constitutional: Well developed, well nourished, no acute distress, non-toxic appearance. [] HENT: Normocephalic, atraumatic, bilateral external ears normal, oropharynx moist, no oral exudates, nose normal. [] Eyes: PERRLA, EOMI, conjunctiva normal, no discharge. [] Neck: Normal range of motion, no tenderness, supple, no stridor. [] Cardiovascular:Heart rate regular rhythm, no murmur [] Lungs & Thorax: Patient appears short of breath, no wheezing, tight chest. Abdomen: Bowel sounds normal, soft, no tenderness, no masses, no pulsatile masses. [] Skin: Warm, dry, no erythema, no rash. [] Back: No tenderness, no CVA tenderness. [] Extremities: No tenderness, no cyanosis, no clubbing, ROM intact, no edema. [] Neurologic: Alert and oriented X 3, normal motor function, normal sensory function, no focal deficits noted. [] Psychologic: Affect normal, judgement normal, mood normal. [] Current Patient Data Vital Signs Vital Signs Date Time Temp Pulse Resp B/P (MAP) Pulse Ox O2 Delivery O2 Flow Rate FiO2 06/14/18 16:23 100 Room Air 06/14/18 16:09 98.5 85 24 121/75 (90) 98.5 EKG EKG [] Radiology/Procedures Radiology/Procedures [] Course & Med Decision Making Course & Med Decision Making Pertinent Labs and Imaging studies reviewed. (See chart for details) This is a 27-year-old female patient with history of asthma presenting today with cough and shortness of breath since yesterday. Patient was given a DuoNeb treatment and prednisone on arrival to the ED. Lungs have cleaned up, breathing is back to baseline. Patient O2 sats -100% on room air since arrival. Patient was discharged with albuterol inhaler and prednisone for 4 more days. Follow-up with PCP in one week. Provided return precautions and discharged in stable condition. Dragon Disclaimer Dragon Disclaimer This electronic medical record was generated, in whole or in part, using a voice recognition dictation system. Departure Departure Impression: Primary Impression: Asthma exacerbation Disposition: 01 HOME, SELF-CARE Condition: STABLE Referrals: NO PCP (PCP) Follow-up with your doctor in one week Patient Instructions: Asthma, Adult Additional Instructions: You were evaluated in the emergency room for asthma exacerbation. Use breathing treatments and prednisone prescribed as ordered. Please follow-up with your doctor in the course of this week or next week. Come back to the emergency room at any point symptoms worsen. Scripts Albuterol Sulfate (VENTOLIN HFA INHALER) 18 Gm Hfa.aer.ad 2 PUFF INH Q4HRS for FOR ASTHMA, #1 INHALER 0 Refills Prov: MUTUNGA,NICK INSURANCE AGENCY MANAGER 06/14/18 Prednisone (PREDNISONE) 50 Mg Tablet 1 TAB PO DAILY, #4 TAB Prov: MUTUNGA,NICK INSURANCE AGENCY MANAGER 06/14/18 Problem Qualifiers Primary Impression: Asthma exacerbation Asthma severity: mild Asthma persistence: intermittent Qualified Codes: J45.21 - Mild intermittent asthma with (acute) exacerbation NICK ERICKSON INSURANCE AGENCY MANAGER Jun 14, 2018 16:14
[2018-06-14] MEDS ORDERED: predniSONE 10 MG TABLET PO ONE (16:15)
[2018-06-14] MEDS ORDERED: IPRATRPIUM/ALBUTEROL 0.5/2.5MG 3 ML NEBU. NEB ONE (16:15)
[2018-06-14] MEDS ORDERED: VENTOLIN HFA18 GM INH (16:35)
[2018-06-14] MEDS ORDERED: PRED50TA PO (16:35)
[2018-06-14 16:43] VITALS: BP 122/60
== END 2018-06-14 16:44 | disposition home or self-care (01) ==
LOC: ER 15:57
DX: J45.21 Mild intermittent asthma with (acute) exacerbation (principal)
CPT/HCPCS: 94640; 99283; J7512; J7620

== ENCOUNTER 2018-09-24 03:39 | Inpatient (IN) | payer SELFPAY ==
[~2018-09-24] VITALS: Ht 154.9 cm; Wt 88.5 kg
[~2018-09-24 03:39] MED LIST changes: +ALBU2.5V8 INH; -HYDR-2758 PO; +HYDR-2761 PO; +HYDR-3164 PO; -HYDR-971 PO; -PROAIR HFA8.5 GM INH
[2018-09-24] MEDS ORDERED: IPRATRPIUM/ALBUTEROL 0.5/2.5MG 3 ML NEBU. NEB ONE ×2 (04:00→04:45)
--- NOTE | 2018-09-24 04:20 | PHYS DOC ---
Past Medical History Past Medical History: Asthma Additional Past Medical Histor: "KELOID SKIN" Past Surgical History: Other Additional Past Surgical Histo: RIGHT EAR Alcohol Use: Occasionally Drug Use: None, Methadone Adult General Chief Complaint Chief Complaint: SHORTNESS OF BREATH HPI HPI Patient is a 28-year-old female who presents with a five-day history of shortness of breath. She has a past medical history of asthma, was seen yesterday morning at 10:00 and was prescribed oral prednisone and albuterol. She took her first dose of steroid yesterday and did not get any better. Could not sleep tonight and was still having difficulty breathing. She reports a dry cough, denies fever, chills, nasal congestion, sore throat, and chest pain. Review of Systems Review of Systems Constitutional: Denies fever or chills [] Eyes: Denies change in visual acuity, redness, or eye pain [] HENT: Denies nasal congestion or sore throat [] Respiratory: Reports cough and shortness of breath [] Cardiovascular: Denies chest pain or palpitations [] GI: Denies abdominal pain, nausea, vomiting, or diarrhea [] : Denies dysuria or hematuria [] Musculoskeletal: Denies back pain or joint pain [] Integument: Denies rash or skin lesions [] Neurologic: Denies headache, focal weakness or sensory changes [] Complete systems were reviewed and found to be within normal limits, except as documented in this note. Current Medications Current Medications Current Medications Medications (Trade) Dose Ordered Sig/Adam Start Time Stop Time Status Last Admin Dose Admin Albuterol/ Ipratropium (Duoneb) 3 ml 1X ONCE 09/24/18 04:45 09/24/18 04:46 DC 09/24/18 05:18 3 ML Dexamethasone Sodium Phosphate (Decadron) 10 mg 1X ONCE 09/24/18 04:45 09/24/18 04:46 DC 09/24/18 05:10 10 MG Labetalol HCl (Normodyne Iv Push) 10 mg 1X ONCE 09/24/18 04:45 09/24/18 04:47 DC Allergies Allergies Allergies Coded Allergies Type Severity Reaction Last Updated Verified No Known Drug Allergies 03/02/16 No Physical Exam Physical Exam Constitutional: Well developed, well nourished, mild respiratory distress. [] HENT: Normocephalic, atraumatic, nose normal. [] Eyes: Conjunctiva normal, no discharge. [] Neck: Normal range of motion, no tenderness. [] Cardiovascular: Heart rate regular rhythm, no murmur [] Lungs & Thorax: Moderate bilateral end expiratory wheezing. [] Abdomen: Soft, no tenderness. [] Skin: Warm, dry, no erythema, no rash. [] Extremities: No tenderness, no edema. [] Neurologic: Alert and oriented X 3, no focal deficits noted. [] Psychologic: Affect normal, judgement normal, mood normal. [] Current Patient Data Vital Signs Vital Signs Date Time Temp Pulse Resp B/P (MAP) Pulse Ox O2 Delivery O2 Flow Rate FiO2 09/24/18 04:51 101 158/68 (98) 09/24/18 04:21 24 95 09/24/18 04:07 Room Air 09/24/18 03:53 97.8 97.8 Lab Values Laboratory Tests Test 09/24/18 04:52 Influenza Type A Antigen Negative (NEGATIVE) Influenza Type B Antigen Positive (NEGATIVE) EKG EKG [] Radiology/Procedures Radiology/Procedures Two-view chest x-ray Preliminary report by ED physician without acute process. Course & Med Decision Making Course & Med Decision Making Pertinent Labs and Imaging studies reviewed. (See chart for details) Patient is a 28-year-old female is presenting with a 5 day history of shortness of breath. She was seen yesterday at 10:00 in the morning and was discharged with prednisone and albuterol. She reports that her shortness breath has not gotten any better and she is not able sleep tonight. Labs obtained and posted to chart. Patient is flu B positive. Lactic acid of 2.3 and white count of 13.2. Preliminary report chest x-ray without acute process. Patient received 2 breathing treatments in the ED. Patient will be admitted for failing outpatient management. Patient requiring admission for further evaluation and treatment. Discussed with Dr. Joseph (hospitalist) who is in agreement with admission. Discussed findings and plan with patient and family, who acknowledge understanding and agreement. Dragon Disclaimer Dragon Disclaimer This electronic medical record was generated, in whole or in part, using a voice recognition dictation system. Departure Departure Impression: Primary Impression: Asthma exacerbation Additional Impression: Failure of outpatient treatment Disposition: ADMITTED INPATIENT (med/surg) Admitting Physician: Jolene Joseph Condition: STABLE Referrals: NO PCP (PCP) Problem Qualifiers Primary Impression: Asthma exacerbation Asthma severity: moderate Asthma persistence: persistent Qualified Codes: J45.41 - Moderate persistent asthma with (acute) exacerbation LUISA DSOUZA DO Sep 24, 2018 04:20
[2018-09-24] MEDS ORDERED: LABETALOL 20 MG/4 ML DISP.SYRIN. IVP ONE (04:45)
[2018-09-24] MEDS ORDERED: DEXAMETHASONE SOD PHOS 20 MG/5 ML VIAL. IV ONE (04:45)
[2018-09-24] MEDS ORDERED: ALBUTEROL SULFATE 2.5 MG/3 ML NEBU. CONT NEB ONE (05:15)
[2018-09-24 05:35] LABS: INFLUENZA A PATIENT NEGATIVE (NEGATIVE)
[2018-09-24 05:36] LABS: INFLUENZA B PATIENT POSITIVE (NEGATIVE)
[2018-09-24] MEDS: IPRATRPIUM/ALBUTEROL 0.5/2.5MG 3 ML NEBU. NEB SCH ×4 (05:36→19:15)
[2018-09-24 05:48] LABS: BASO # 0.1 x10^3/uL (0.0-0.2); BASO % 0 % (0-3); EOS # 0.1 x10^3/uL (0.0-0.7); EOS % 1 % (0-3); HEMATOCRIT 40.2 % (36.0-47.0); HEMOGLOBIN 13.2 g/dL (12.0-15.5); LYMPH # 3.8 x10^3/uL (1.0-4.8); LYMPH % 29 % (24-48); MEAN CORPUSCULAR HEMOGLOBIN 28 pg (25-35); MEAN CORPUSCULAR HGB CONC 33 g/dL (31-37); MEAN CORPUSCULAR VOLUME 85 fL (79-100); MONO # 1.1 x10^3/uL (0.0-1.1); MONO % 8 % (0-9); NEUT # 8.2 x10^3uL (1.8-7.7); NEUT % 62 % (31-73); PLATELET COUNT 271 x10^3/uL (140-400); RED BLOOD COUNT 4.73 x10^6/uL (3.50-5.40); RED CELL DISTRIBUTION WIDTH 14.8 % (11.5-14.5); WHITE BLOOD COUNT 13.2 x10^3/uL (4.0-11.0)
[2018-09-24] MEDS ORDERED: OSELTAMIVIR 75 MG CAPSULE PO ONE (06:00)
[2018-09-24 06:03] LABS: CALCIUM 9.8 mg/dL (8.5-10.1); GFR 81.1; POTASSIUM 3.3 mmol/L (3.5-5.1)
[2018-09-24 06:09] LABS: ALBUMIN 3.5 g/dL (3.4-5.0); ALBUMIN/GLOBULIN RATIO 0.8 (1.0-1.7); TOTAL BILIRUBIN 0.2 mg/dL (0.2-1.0)
[2018-09-24 07:00] VITALS: BP 130/73
--- NOTE | 2018-09-24 07:16 | NUR ---
called consult to dr urbina at this time
--- NOTE | 2018-09-24 08:14 | RAD ---
Two-view chest 09/24/2018 CLINICAL INDICATION: Shortness of air and cough for 5 days. COMPARISON: Chest 03/28/2018. FINDINGS: Cardiac and mediastinal silhouettes are unremarkable. There is mild central peribronchial thickening. No pleural effusion, pneumothorax or focal consolidation. IMPRESSION: Central peribronchial thickening indeterminate between reactive airways or nonspecific bronchitis with viral etiologies not excluded. No consolidating pneumonia. Electronically signed by: Kamron Calderon MD (09/24/2018 8:09 AM) [facility]
--- NOTE | 2018-09-24 10:01 | NUR ---
IP: Pt is influenza + requiring droplet precautions for 5 days and 24 hours without a fever, whichever is longest.
--- NOTE | 2018-09-24 10:08 | NUR ---
pt arrived to floor at 0705 via wheelchair from ED in stable condition. pt is alert and oriented. pt is on RA but appears to be SOB. pt is having labored breathing, not complaining of any pain and her oxygen saturation is within normal limits. pt has boyfriend at bedside. pt was given oxygen at 2LNC prn for comfort due to feeling SOB. pt has call light within reach. pt stated she wanted to shower due to being here all night. pt showered without any difficulty. received report from NELSON Perez in ER. will continue to monitor.
[2018-09-24 11:00] VITALS: BP 134/78
--- NOTE | 2018-09-24 11:00 | PDOC1 ---
History and Physical Date of Admission Date of Admission DATE: 09/24/18 TIME: 10:57 Identification/Chief Complaint Chief Complaint SEEN IN ER , five-day history of shortness of breath. She has a past medical history of asthma, was seen 1 AM at 10:00 and was prescribed oral prednisone and albuterol. She took her first dose of steroid yesterday and did not get any better. Could not sleep tonight and was still having difficulty breathing. She reports a dry cough, denies fever, chills, nasal congestion, sore throat, and chest pain. Past Medical History Past Medical History Past Medical History Past Medical History: Asthma Additional Past Medical Histor: "KELOID SKIN" Past Surgical History: Other Additional Past Surgical Histo: RIGHT EAR Alcohol Use: Occasionally Drug Use: None, Methadone family hx obesity Pulmonary: Asthma Past Surgical History Past Surgical History: No pertinent history Family History Family History: High Cholestrol Social History Smoke: <1 pack per day ALCOHOL: occassional Drugs: None Current Problem List Problem List Problems Medical Problems: (1) Asthma exacerbation Status: Acute (2) Failure of outpatient treatment Status: Acute Current Medications Current Medications Current Medications Albuterol/ Ipratropium (Duoneb) 3 ml 1X ONCE NEB Last administered on at 04:06; Start 09/24/18 at 04:00; Stop 09/24/18 at 04:03; Status DC Albuterol/ Ipratropium (Duoneb) 3 ml 1X ONCE NEB Last administered on at 05:18; Start 09/24/18 at 04:45; Stop 09/24/18 at 04:46; Status DC Dexamethasone Sodium Phosphate (Decadron) 10 mg 1X ONCE IV Last administered on 09/24/18at 05:10; Start 09/24/18 at 04:45; Stop 09/24/18 at 04:46; Status DC Albuterol/ Ipratropium (Duoneb) 3 ml RTQID NEB ; Start 09/24/18 at 08:00; Stop 09/25/18 at 07:59 Labetalol HCl (Normodyne Iv Push) 10 mg 1X ONCE IVP ; Start 09/24/18 at 04:45; Stop 09/24/18 at 04:47; Status DC Albuterol Sulfate (Ventolin Neb Soln) 10 mg 1X ONCE CONT NEB Last administered on 09/24/18at 05:18; Start 09/24/18 at 05:15; Stop 09/24/18 at 05:16 ; Status DC Oseltamivir Phosphate (Tamiflu) 75 mg 1X ONCE PO ; Start 09/24/18 at 06:00; Stop 09/24/18 at 06:01; Status DC Active Scripts Active Proair Hfa Inhaler (Albuterol Sulfate) 8.5 Gm Hfa.aer.ad 1 Puff INH PRN Q6HRS PRN Prednisone 50 Mg Tablet 1 Tab PO DAILY Ventolin Hfa Inhaler (Albuterol Sulfate) 18 Gm Hfa.aer.ad 2 Puff INH Q4HRS Prednisone 50 Mg Tablet 1 Tab PO DAILY Ibuprofen 600 Mg Tablet 600 Mg PO PRN Q6HRS PRN Cyclobenzaprine Hcl 10 Mg Tablet 1 Tab PO TID Flagyl (Metronidazole) 500 Mg Tablet 1 Tab PO BID Flovent 44MCG Hfa (Fluticasone Propionate) 10.6 Gm Aer.w.adap 2 Puff IH BID 10 Days Proair Hfa Inhaler (Albuterol Sulfate) 8.5 Gm Hfa.aer.ad 1-2 Puff INH PRN Q4- 6HRS PRN Prednisone 50 Mg Tablet 1 Tab PO DAILY Ventolin Hfa Inhaler (Albuterol Sulfate) 18 Gm Hfa.aer.ad 2 Puff INH Q4HRS [place] 5-325 Tablet (Acetaminophen/Hydrocodone Bitart) 1 Each Tablet 1-2 Tab PO Q4-6HRS 5 Days Keflex (Cephalexin) 500 Mg Capsule 1 Cap PO TID Pyridium (Phenazopyridine Hcl) 200 Mg Tablet 200 Mg PO Q8HRS PRN 2 Days Naproxen 375 Mg Tablet 1 Tab PO TID PRN PRN Ibuprofen 400 Mg Tablet 400 Mg PO PRN Q8HRS PRN Albuterol Sulfate Conc Neb Soln (Albuterol Sulfate) 2.5 Mg/0.5 Ml Vial.neb 1 Vial NEB Q4HRS Ventolin Hfa Inhaler (Albuterol Sulfate) 18 Gm Hfa.aer.ad 2 Puff INH Q4HRS Prednisone 20 Mg Tablet 2 Tab PO DAILY 5 Days Doxycycline Hyclate 100 Mg Tablet.dr 1 Tab PO BID 7 Days Zofran Odt (Ondansetron) 4 Mg Tab.rapdis 1 Tab SL Q8HRS PRN Duoneb 0.5-3(2.5) Mg/3 Ml (Albuterol/Ipratropium) 3 Ml Ampul.neb 3 Ml NEB QID 30 Days Proair Hfa Inhaler (Albuterol Sulfate) 8.5 Gm Hfa.aer.ad 1 Puff INH PRN Q6HRS PRN Medrol (Methylprednisolone) 4 Mg Tab.ds.pk 1 Pkg PO UD Ventolin Hfa Inhaler (Albuterol Sulfate) 18 Gm Hfa.aer.ad 2 Puff INH Q4HRS Hydrocodone-Apap 5-325 (Hydrocodone Bit/Acetaminophen) 1 Each Tablet 1 Tab PO PRN Q6HRS PRN Proair Hfa Inhaler (Albuterol Sulfate) 8.5 Gm Hfa.aer.ad 1 Puff INH PRN Q6HRS PRN Allergies Allergies: Coded Allergies: No Known Drug Allergies (Unverified , 03/02/16) ROS Review of System Review of Systems Review of Systems Constitutional: Denies fever or chills [] Eyes: Denies change in visual acuity, redness, or eye pain [] HENT: Denies nasal congestion or sore throat [] Respiratory: Reports cough and shortness of breath [] Cardiovascular: Denies chest pain or palpitations [] GI: Denies abdominal pain, nausea, vomiting, or diarrhea [] : Denies dysuria or hematuria [] Musculoskeletal: Denies back pain or joint pain [] Integument: Denies rash or skin lesions [] Neurologic: Denies headache, focal weakness or sensory changes [] 14 PTsystems were reviewed and found to be within normal limits, except as documented General: YES: Fatigue Respiratory: YES: Shortness of breath, SOB with excertion Neurological: No Behavorial Changes, No Bowel/Bladder ControlChng, No Confusion , No Dizziness, No Gait Disturbance, No Headaches, No Impaired Coord/balance, No Memory Loss, No Numbness/Tingling, No Seizures, No Speech Problems, No Tremors, No Visual Changes, No Weakness, No Other Physical Exam Physical Exam Physical Exam Physical Exam Constitutional: Well developed, well nourished, mild respiratory distress. [] HENT: Normocephalic, atraumatic, nose normal. [] Eyes: Conjunctiva normal, no discharge. [] Neck: Normal range of motion, no tenderness. [] Cardiovascular: Heart rate regular rhythm, no murmur [] Lungs & Thorax: Moderate bilateral end expiratory wheezing. [] Abdomen: Soft, no tenderness. [] Skin: Warm, dry, no erythema, no rash. [] Extremities: No tenderness, no edema. [] Neurologic: Alert and oriented X 3, no focal deficits noted. [] Psychologic: Affect normal, judgement normal, mood normal. [] General: Alert, Oriented X3, Cooperative, mild distress HEENT: Atraumatic, PERRLA Heart: RRR, no thrills, no gallops Breasts: Not examined Abdomen: Normal bowel sounds Rectal Exam: not examined PELVIC: Examination not indicated Extremities: No cyanosis, No edema Neuro: Normal speech, Cranial nerves 3-12 NL Psych/Mental Status: Mental status NL, Mood NL Vitals Vitals Vital Signs Date Time Temp Pulse Resp B/P (MAP) Pulse Ox O2 Delivery O2 Flow Rate FiO2 09/24/18 05:51 97 18 179/73 (108) 97 09/24/18 04:07 Room Air 09/24/18 03:53 97.8 97.8 Labs Labs Laboratory Tests Test 09/24/18 04:52 09/24/18 05:37 Influenza Type A Antigen Negative (NEGATIVE) Influenza Type B Antigen Positive (NEGATIVE) White Blood Count 13.2 x10^3/uL (4.0-11.0) Red Blood Count 4.73 x10^6/uL (3.50-5.40) Hemoglobin 13.2 g/dL (12.0-15.5) Hematocrit 40.2 % (36.0-47.0) Mean Corpuscular Volume 85 fL (79-100) Mean Corpuscular Hemoglobin 28 pg (25-35) Mean Corpuscular Hemoglobin Concent 33 g/dL (31-37) Red Cell Distribution Width 14.8 % (11.5-14.5) Platelet Count 271 x10^3/uL (140-400) Neutrophils (%) (Auto) 62 % (31-73) Lymphocytes (%) (Auto) 29 % (24-48) Monocytes (%) (Auto) 8 % (0-9) Eosinophils (%) (Auto) 1 % (0-3) Basophils (%) (Auto) 0 % (0-3) Neutrophils # (Auto) 8.2 x10^3uL (1.8-7.7) Lymphocytes # (Auto) 3.8 x10^3/uL (1.0-4.8) Monocytes # (Auto) 1.1 x10^3/uL (0.0-1.1) Eosinophils # (Auto) 0.1 x10^3/uL (0.0-0.7) Basophils # (Auto) 0.1 x10^3/uL (0.0-0.2) Maternal Serum HCG Beta Subunit 1 mIU/mL (0-5) Sodium Level 139 mmol/L (136-145) Potassium Level 3.3 mmol/L (3.5-5.1) Chloride Level 104 mmol/L (98-107) Carbon Dioxide Level 21 mmol/L (21-32) Anion Gap 14 (6-14) Blood Urea Nitrogen 15 mg/dL (7-20) Creatinine 1.0 mg/dL (0.6-1.0) Estimated GFR (Cockcroft-Gault) 81.1 BUN/Creatinine Ratio 15 (6-20) Glucose Level 121 mg/dL (70-99) Lactic Acid Level 2.3 mmol/L (0.4-2.0) Calcium Level 9.8 mg/dL (8.5-10.1) Total Bilirubin 0.2 mg/dL (0.2-1.0) Aspartate Amino Transf (AST/SGOT) 13 U/L (15-37) Alanine Aminotransferase (ALT/SGPT) 31 U/L (14-59) Alkaline Phosphatase 118 U/L (46-116) Total Protein 8.0 g/dL (6.4-8.2) Albumin 3.5 g/dL (3.4-5.0) Albumin/Globulin Ratio 0.8 (1.0-1.7) Laboratory Tests Test 09/24/18 04:52 09/24/18 05:37 Influenza Type A Antigen Negative (NEGATIVE) Influenza Type B Antigen Positive (NEGATIVE) White Blood Count 13.2 x10^3/uL (4.0-11.0) Red Blood Count 4.73 x10^6/uL (3.50-5.40) Hemoglobin 13.2 g/dL (12.0-15.5) Hematocrit 40.2 % (36.0-47.0) Mean Corpuscular Volume 85 fL (79-100) Mean Corpuscular Hemoglobin 28 pg (25-35) Mean Corpuscular Hemoglobin Concent 33 g/dL (31-37) Red Cell Distribution Width 14.8 % (11.5-14.5) Platelet Count 271 x10^3/uL (140-400) Neutrophils (%) (Auto) 62 % (31-73) Lymphocytes (%) (Auto) 29 % (24-48) Monocytes (%) (Auto) 8 % (0-9) Eosinophils (%) (Auto) 1 % (0-3) Basophils (%) (Auto) 0 % (0-3) Neutrophils # (Auto) 8.2 x10^3uL (1.8-7.7) Lymphocytes # (Auto) 3.8 x10^3/uL (1.0-4.8) Monocytes # (Auto) 1.1 x10^3/uL (0.0-1.1) Eosinophils # (Auto) 0.1 x10^3/uL (0.0-0.7) Basophils # (Auto) 0.1 x10^3/uL (0.0-0.2) Maternal Serum HCG Beta Subunit 1 mIU/mL (0-5) Sodium Level 139 mmol/L (136-145) Potassium Level 3.3 mmol/L (3.5-5.1) Chloride Level 104 mmol/L (98-107) Carbon Dioxide Level 21 mmol/L (21-32) Anion Gap 14 (6-14) Blood Urea Nitrogen 15 mg/dL (7-20) Creatinine 1.0 mg/dL (0.6-1.0) Estimated GFR (Cockcroft-Gault) 81.1 BUN/Creatinine Ratio 15 (6-20) Glucose Level 121 mg/dL (70-99) Lactic Acid Level 2.3 mmol/L (0.4-2.0) Calcium Level 9.8 mg/dL (8.5-10.1) Total Bilirubin 0.2 mg/dL (0.2-1.0) Aspartate Amino Transf (AST/SGOT) 13 U/L (15-37) Alanine Aminotransferase (ALT/SGPT) 31 U/L (14-59) Alkaline Phosphatase 118 U/L (46-116) Total Protein 8.0 g/dL (6.4-8.2) Albumin 3.5 g/dL (3.4-5.0) Albumin/Globulin Ratio 0.8 (1.0-1.7) Images Images PROCEDURE: CHEST PA & LATERAL Two-view chest 09/24/2018 CLINICAL INDICATION: Shortness of air and cough for 5 days. COMPARISON: Chest 03/28/2018. FINDINGS: Cardiac and mediastinal silhouettes are unremarkable. There is mild central peribronchial thickening. No pleural effusion, pneumothorax or focal consolidation. IMPRESSION: Central peribronchial thickening indeterminate between reactive airways or nonspecific bronchitis with viral etiologies not excluded. No consolidating pneumonia. Electronically signed by: Dalia Calderon MD (09/24/2018 8:09 AM) [facility] DICTATED and SIGNED BY: DALIA CALDERON MD DATE: 09/24/18 0808 VTE Prophylaxis Ordered VTE Prophylaxis Devices: No VTE Pharmacological Prophylaxi: Yes Assessment/Plan Assessment/Plan impression 1. acute hypoxic resp failure 2. acute exac of persistent asthma 3. hypertension 4. morbid obesity 5. ACUTE FLU B POS 6. HYPOKALEMIA plan RESP ISOLATION TAMIFLU BID IV TAPERING STEROIDS PULM CONSULT BETA-AGONIST NEBS Q 4 HRS REPLETE K DVT PROPHYLAXIS., LOVENOX SQ SHIMON JOSHI MD Sep 24, 2018 11:00
[2018-09-24 15:00] VITALS: BP 129/70
[2018-09-24] MEDS ORDERED: POTASSIUM CHLORIDE 20 MEQ TABLET.ER. PO ONE (15:30)
--- NOTE | 2018-09-24 15:34 | NUR ---
SW following for discharge planning. Discussed with RN. RN advised no SW needs at this time. SW met with pt to give self pay resources. Pt advised she had lost her job and insurance, but would have insurance again in September. Pt reported she had been on contacting the insurance company and her job to find out information. Pt denied any SW needs. SW will continue to follow.
[2018-09-24] MEDS: PANTOPRAZOLE 40 MG TABLET.DR. PO SCH (16:55)
[2018-09-24] MEDS: methylPREDNISolone SOD SUCC PF 125 MG/2 ML VIAL. IV SCH ×2 (16:56→22:15)
[2018-09-24] MEDS: ENOXAPARIN 40 MG/0.4 ML SYRINGE. SQ SCH (17:01)
[2018-09-24 19:00] VITALS: BP 158/67
--- NOTE | 2018-09-24 19:45 | NUR ---
Dr. Amor notified of pt's elevated blood pressure and heart rate, orders rcvd. Pt resting in bed and call light within reach, will continue to monitor
[2018-09-24] MEDS: HYDROcodone/APAP 5/325MG 1 TAB TABLET PO PRN (20:06)
[2018-09-24] MEDS: MONTELUKAST SODIUM 10 MG TABLET. PO SCH (20:43)
[2018-09-24 21:00] VITALS: BP 132/64
[2018-09-24 23:00] VITALS: BP 117/64
[2018-09-25 03:00] VITALS: BP 142/72
[2018-09-25 04:00] LABS: BASO % 0 % (0-3); EOS % 0 % (0-3); HEMOGLOBIN 12.6 g/dL (12.0-15.5); LYMPH # 1.3 x10^3/uL (1.0-4.8); LYMPH % 9 % (24-48); MEAN CORPUSCULAR HEMOGLOBIN 28 pg (25-35); MEAN CORPUSCULAR HGB CONC 33 g/dL (31-37); MEAN CORPUSCULAR VOLUME 85 fL (79-100); MONO # 0.2 x10^3/uL (0.0-1.1); MONO % 2 % (0-9); NEUT # 13.6 x10^3uL (1.8-7.7); NEUT % 90 % (31-73); PLATELET COUNT 291 x10^3/uL (140-400); RED BLOOD COUNT 4.48 x10^6/uL (3.50-5.40); RED CELL DISTRIBUTION WIDTH 14.7 % (11.5-14.5); WHITE BLOOD COUNT 15.1 x10^3/uL (4.0-11.0)
[2018-09-25 04:16] LABS: CALCIUM 9.4 mg/dL (8.5-10.1); GFR 81.1; POTASSIUM 4.4 mmol/L (3.5-5.1)
[2018-09-25] MEDS: ALBUTEROL SULFATE 2.5 MG/3 ML NEBU. NEB PRN ×2 (04:30→07:34)
[2018-09-25 04:50] LABS: % LYMPHS 14 % (24-48); % MONOS 2 % (0-10); % SEGS 84 % (35-66); PLT ESTIMATE ADEQUATE (ADEQUATE); TOXIC GRANULATION SLIGHT
[2018-09-25] MEDS: HYDROcodone/APAP 5/325MG 1 TAB TABLET PO PRN ×2 (04:53→18:34)
[2018-09-25] MEDS: PANTOPRAZOLE 40 MG TABLET.DR. PO SCH (06:09)
[2018-09-25] MEDS: methylPREDNISolone SOD SUCC PF 125 MG/2 ML VIAL. IV SCH ×3 (06:09→21:03)
[2018-09-25 07:00] VITALS: BP 143/69
[2018-09-25] MEDS: POTASSIUM CHLORIDE 20 MEQ TABLET.ER. PO SCH (08:12)
--- NOTE | 2018-09-25 10:39 | PDOC ---
PROGRESS NOTES History of Present Illness History of Present Illness essment/Plan Assessment/Plan impression 1. acute hypoxic resp failure 2. acute exac of persistent asthma 3. hypertension 4. morbid obesity 5. ACUTE FLU B POS 6. HYPOKALEMIA plan RESP ISOLATION TAMIFLU BID IV TAPERING STEROIDS PULM CONSULT BETA-AGONIST NEBS Q 4 HRS REPLETE K DVT PROPHYLAXIS., LOVENOX SQ LIKELY HOME 09/26, TAPERING STEROIDS, SEE PCP SOON Vitals Vitals Vital Signs Date Time Temp Pulse Resp B/P (MAP) Pulse Ox O2 Delivery O2 Flow Rate FiO2 09/25/18 08:13 96 143/69 09/25/18 08:00 Room Air 09/25/18 07:35 94 09/25/18 07:00 98.1 18 98.1 09/24/18 11:20 2.0 Physical Exam General: Alert, Oriented X3, Cooperative, mild distress Heart: Regular rate, Normal S1 Lungs: Clear Abdomen: Normal bowel sounds, Soft, No tenderness Extremities: No clubbing, No cyanosis, No edema Labs LABS Laboratory Tests Test 09/24/18 16:45 09/24/18 23:00 09/25/18 03:30 Lactic Acid Level 3.3 mmol/L (0.4-2.0) 2.8 mmol/L (0.4-2.0) White Blood Count 15.1 x10^3/uL (4.0-11.0) Red Blood Count 4.48 x10^6/uL (3.50-5.40) Hemoglobin 12.6 g/dL (12.0-15.5) Hematocrit 38.0 % (36.0-47.0) Mean Corpuscular Volume 85 fL (79-100) Mean Corpuscular Hemoglobin 28 pg (25-35) Mean Corpuscular Hemoglobin Concent 33 g/dL (31-37) Red Cell Distribution Width 14.7 % (11.5-14.5) Platelet Count 291 x10^3/uL (140-400) Neutrophils (%) (Auto) 90 % (31-73) Lymphocytes (%) (Auto) 9 % (24-48) Monocytes (%) (Auto) 2 % (0-9) Eosinophils (%) (Auto) 0 % (0-3) Basophils (%) (Auto) 0 % (0-3) Neutrophils # (Auto) 13.6 x10^3uL (1.8-7.7) Lymphocytes # (Auto) 1.3 x10^3/uL (1.0-4.8) Monocytes # (Auto) 0.2 x10^3/uL (0.0-1.1) Eosinophils # (Auto) 0.0 x10^3/uL (0.0-0.7) Basophils # (Auto) 0.0 x10^3/uL (0.0-0.2) Segmented Neutrophils % 84 % (35-66) Lymphocytes % 14 % (24-48) Monocytes % 2 % (0-10) Toxic Granulation Slight Platelet Estimate Adequate (ADEQUATE) Sodium Level 137 mmol/L (136-145) Potassium Level 4.4 mmol/L (3.5-5.1) Chloride Level 103 mmol/L (98-107) Carbon Dioxide Level 21 mmol/L (21-32) Anion Gap 13 (6-14) Blood Urea Nitrogen 15 mg/dL (7-20) Creatinine 1.0 mg/dL (0.6-1.0) Estimated GFR (Cockcroft-Gault) 81.1 Glucose Level 148 mg/dL (70-99) Calcium Level 9.4 mg/dL (8.5-10.1) Assessment and Plan Assessmemt and Plan Problems Medical Problems: (1) Asthma exacerbation Status: Acute (2) Failure of outpatient treatment Status: Acute Comment Review of Relevant I have reviewed the following items anmol (where applicable) has been applied. Labs Laboratory Tests Test 09/24/18 04:52 09/24/18 05:37 09/24/18 16:45 09/24/18 23:00 Influenza Type A Antigen Negative (NEGATIVE) Influenza Type B Antigen Positive (NEGATIVE) White Blood Count 13.2 x10^3/uL (4.0-11.0) Red Blood Count 4.73 x10^6/uL (3.50-5.40) Hemoglobin 13.2 g/dL (12.0-15.5) Hematocrit 40.2 % (36.0-47.0) Mean Corpuscular Volume 85 fL (79-100) Mean Corpuscular Hemoglobin 28 pg (25-35) Mean Corpuscular Hemoglobin Concent 33 g/dL (31-37) Red Cell Distribution Width 14.8 % (11.5-14.5) Platelet Count 271 x10^3/uL (140-400) Neutrophils (%) (Auto) 62 % (31-73) Lymphocytes (%) (Auto) 29 % (24-48) Monocytes (%) (Auto) 8 % (0-9) Eosinophils (%) (Auto) 1 % (0-3) Basophils (%) (Auto) 0 % (0-3) Neutrophils # (Auto) 8.2 x10^3uL (1.8-7.7) Lymphocytes # (Auto) 3.8 x10^3/uL (1.0-4.8) Monocytes # (Auto) 1.1 x10^3/uL (0.0-1.1) Eosinophils # (Auto) 0.1 x10^3/uL (0.0-0.7) Basophils # (Auto) 0.1 x10^3/uL (0.0-0.2) Maternal Serum HCG Beta Subunit 1 mIU/mL (0-5) Sodium Level 139 mmol/L (136-145) Potassium Level 3.3 mmol/L (3.5-5.1) Chloride Level 104 mmol/L (98-107) Carbon Dioxide Level 21 mmol/L (21-32) Anion Gap 14 (6-14) Blood Urea Nitrogen 15 mg/dL (7-20) Creatinine 1.0 mg/dL (0.6-1.0) Estimated GFR (Cockcroft-Gault) 81.1 BUN/Creatinine Ratio 15 (6-20) Glucose Level 121 mg/dL (70-99) Lactic Acid Level 2.3 mmol/L (0.4-2.0) 3.3 mmol/L (0.4-2.0) 2.8 mmol/L (0.4-2.0) Calcium Level 9.8 mg/dL (8.5-10.1) Total Bilirubin 0.2 mg/dL (0.2-1.0) Aspartate Amino Transf (AST/SGOT) 13 U/L (15-37) Alanine Aminotransferase (ALT/SGPT) 31 U/L (14-59) Alkaline Phosphatase 118 U/L (46-116) Total Protein 8.0 g/dL (6.4-8.2) Albumin 3.5 g/dL (3.4-5.0) Albumin/Globulin Ratio 0.8 (1.0-1.7) Test 09/25/18 03:30 White Blood Count 15.1 x10^3/uL (4.0-11.0) Red Blood Count 4.48 x10^6/uL (3.50-5.40) Hemoglobin 12.6 g/dL (12.0-15.5) Hematocrit 38.0 % (36.0-47.0) Mean Corpuscular Volume 85 fL (79-100) Mean Corpuscular Hemoglobin 28 pg (25-35) Mean Corpuscular Hemoglobin Concent 33 g/dL (31-37) Red Cell Distribution Width 14.7 % (11.5-14.5) Platelet Count 291 x10^3/uL (140-400) Neutrophils (%) (Auto) 90 % (31-73) Lymphocytes (%) (Auto) 9 % (24-48) Monocytes (%) (Auto) 2 % (0-9) Eosinophils (%) (Auto) 0 % (0-3) Basophils (%) (Auto) 0 % (0-3) Neutrophils # (Auto) 13.6 x10^3uL (1.8-7.7) Lymphocytes # (Auto) 1.3 x10^3/uL (1.0-4.8) Monocytes # (Auto) 0.2 x10^3/uL (0.0-1.1) Eosinophils # (Auto) 0.0 x10^3/uL (0.0-0.7) Basophils # (Auto) 0.0 x10^3/uL (0.0-0.2) Segmented Neutrophils % 84 % (35-66) Lymphocytes % 14 % (24-48) Monocytes % 2 % (0-10) Toxic Granulation Slight Platelet Estimate Adequate (ADEQUATE) Sodium Level 137 mmol/L (136-145) Potassium Level 4.4 mmol/L (3.5-5.1) Chloride Level 103 mmol/L (98-107) Carbon Dioxide Level 21 mmol/L (21-32) Anion Gap 13 (6-14) Blood Urea Nitrogen 15 mg/dL (7-20) Creatinine 1.0 mg/dL (0.6-1.0) Estimated GFR (Cockcroft-Gault) 81.1 Glucose Level 148 mg/dL (70-99) Calcium Level 9.4 mg/dL (8.5-10.1) Laboratory Tests Test 09/24/18 16:45 09/24/18 23:00 09/25/18 03:30 Lactic Acid Level 3.3 mmol/L (0.4-2.0) 2.8 mmol/L (0.4-2.0) White Blood Count 15.1 x10^3/uL (4.0-11.0) Red Blood Count 4.48 x10^6/uL (3.50-5.40) Hemoglobin 12.6 g/dL (12.0-15.5) Hematocrit 38.0 % (36.0-47.0) Mean Corpuscular Volume 85 fL (79-100) Mean Corpuscular Hemoglobin 28 pg (25-35) Mean Corpuscular Hemoglobin Concent 33 g/dL (31-37) Red Cell Distribution Width 14.7 % (11.5-14.5) Platelet Count 291 x10^3/uL (140-400) Neutrophils (%) (Auto) 90 % (31-73) Lymphocytes (%) (Auto) 9 % (24-48) Monocytes (%) (Auto) 2 % (0-9) Eosinophils (%) (Auto) 0 % (0-3) Basophils (%) (Auto) 0 % (0-3) Neutrophils # (Auto) 13.6 x10^3uL (1.8-7.7) Lymphocytes # (Auto) 1.3 x10^3/uL (1.0-4.8) Monocytes # (Auto) 0.2 x10^3/uL (0.0-1.1) Eosinophils # (Auto) 0.0 x10^3/uL (0.0-0.7) Basophils # (Auto) 0.0 x10^3/uL (0.0-0.2) Segmented Neutrophils % 84 % (35-66) Lymphocytes % 14 % (24-48) Monocytes % 2 % (0-10) Toxic Granulation Slight Platelet Estimate Adequate (ADEQUATE) Sodium Level 137 mmol/L (136-145) Potassium Level 4.4 mmol/L (3.5-5.1) Chloride Level 103 mmol/L (98-107) Carbon Dioxide Level 21 mmol/L (21-32) Anion Gap 13 (6-14) Blood Urea Nitrogen 15 mg/dL (7-20) Creatinine 1.0 mg/dL (0.6-1.0) Estimated GFR (Cockcroft-Gault) 81.1 Glucose Level 148 mg/dL (70-99) Calcium Level 9.4 mg/dL (8.5-10.1) Medications Current Medications Albuterol/ Ipratropium (Duoneb) 3 ml 1X ONCE NEB Last administered on at 04:06; Start 09/24/18 at 04:00; Stop 09/24/18 at 04:03; Status DC Albuterol/ Ipratropium (Duoneb) 3 ml 1X ONCE NEB Last administered on at 05:18; Start 09/24/18 at 04:45; Stop 09/24/18 at 04:46; Status DC Dexamethasone Sodium Phosphate (Decadron) 10 mg 1X ONCE IV Last administered on 09/24/18at 05:10; Start 09/24/18 at 04:45; Stop 09/24/18 at 04:46; Status DC Albuterol/ Ipratropium (Duoneb) 3 ml RTQID NEB Last administered on 09/24/18at 19:15; Start 09/24/18 at 08:00; Stop 09/25/18 at 07:59; Status DC Labetalol HCl (Normodyne Iv Push) 10 mg 1X ONCE IVP ; Start 09/24/18 at 04:45; Stop 09/24/18 at 04:47; Status DC Albuterol Sulfate (Ventolin Neb Soln) 10 mg 1X ONCE CONT NEB Last administered on 09/24/18at 05:18; Start 09/24/18 at 05:15; Stop 09/24/18 at 05:16 ; Status DC Oseltamivir Phosphate (Tamiflu) 75 mg 1X ONCE PO ; Start 09/24/18 at 06:00; Stop 09/24/18 at 06:01; Status DC Methylprednisolone Sodium Succinate (SOLU-Medrol 125MG VIAL) 100 mg Q8HRS IV Last administered on 09/25/18at 06:09; Start 09/24/18 at 16:00 Montelukast Sodium (Singulair) 10 mg QHS PO Last administered on 09/24/18 20: 43; Start 09/24/18 at 21:00 Potassium Chloride (Klor-Con) 40 meq 1X ONCE PO Last administered on at 16:55; Start 09/24/18 at 15:30; Stop 09/24/18 at 15:34; Status DC Potassium Chloride (Klor-Con) 20 meq DAILYWBKFT PO Last administered on 08:12; Start 09/25/18 at 08:00 Enoxaparin Sodium (Lovenox 40mg Syringe) 40 mg Q24H SQ Last administered on 17:01; Start 09/24/18 at 16:00 Albuterol Sulfate (Ventolin Neb Soln) 2.5 mg PRN Q4HRS PRN NEB SHORTNESS OF BREATH Last administered on 09/25/18 07:34; Start 09/24/18 at 15:30 Pantoprazole Sodium (Protonix) 40 mg DAILYAC PO Last administered on 09/25/18 06:09; Start 09/24/18 at 16:30 Diltiazem HCl (Cardizem 24hr Cd) 120 mg DAILY PO Last administered on 08:13; Start 09/24/18 at 20:00 Acetaminophen/ Hydrocodone Bitart (Lortab 5/325) 1 tab PRN Q4HRS PRN PO PAIN Last administered on 09/25/18 04:53; Start 09/24/18 at 20:00 Active Scripts Active Flovent 44MCG Hfa (Fluticasone Propionate) 10.6 Gm Aer.w.adap 2 Puff IH BID 10 Days Proair Hfa Inhaler (Albuterol Sulfate) 8.5 Gm Hfa.aer.ad 1-2 Puff INH PRN Q4- 6HRS PRN Ventolin Hfa Inhaler (Albuterol Sulfate) 18 Gm Hfa.aer.ad 2 Puff INH Q4HRS Albuterol Sulfate Conc Neb Soln (Albuterol Sulfate) 2.5 Mg/0.5 Ml Vial.neb 1 Vial NEB Q4HRS Duoneb 0.5-3(2.5) Mg/3 Ml (Albuterol/Ipratropium) 3 Ml Ampul.neb 3 Ml NEB QID 30 Days Vitals/I & O Vital Sign - Last 24 Hours 09/24/18 09/24/18 09/24/18 09/24/18 11:00 11:20 15:00 19:00 Temp 98.7 98.3 98.1 98.7 98.3 98.1 Pulse 96 109 121 Resp 18 18 18 B/P (MAP) 134/78 (96) 129/70 (89) 158/67 (97) Pulse Ox 96 98 97 93 O2 Delivery Room Air Nasal Cannula Room Air Room Air O2 Flow Rate 2.0 09/24/18 09/24/18 09/24/18 09/24/18 19:16 20:06 20:07 20:10 Pulse 122 Resp 16 B/P (MAP) 158/67 Pulse Ox 100 O2 Delivery Room Air Room Air Room Air 09/24/18 09/24/18 09/25/18 09/25/18 21:00 23:00 03:00 04:30 Temp 98.0 98.6 98.0 98.6 Pulse 102 98 101 Resp 18 16 18 B/P (MAP) 132/64 (86) 117/64 (81) 142/72 (95) Pulse Ox 96 93 95 O2 Delivery Room Air Room Air Room Air Room Air 09/25/18 09/25/18 09/25/18 09/25/18 04:53 06:08 07:00 07:35 Temp 98.1 98.1 Pulse 96 Resp 18 18 18 B/P (MAP) 143/69 (93) Pulse Ox 90 94 O2 Delivery Room Air Room Air Room Air Room Air 09/25/18 09/25/18 08:00 08:13 Pulse 96 B/P (MAP) 143/69 O2 Delivery Room Air Intake and Output 09/24/18 09/24/18 09/25/18 15:01 23:01 07:01 Intake Total 590 ml Balance 590 ml SHIMON JOSHI MD Sep 25, 2018 10:39
[2018-09-25 11:00] VITALS: BP 135/69
[2018-09-25] MEDS: IPRATRPIUM/ALBUTEROL 0.5/2.5MG 3 ML NEBU. NEB SCH (12:08)
--- NOTE | 2018-09-25 12:35 | NUR ---
SW following for discharge planning. Discussed with RN, pt is from home. RN advised no SW needs at this time. Pt working on getting [employer] from previous insurance.
[2018-09-25 15:00] VITALS: BP 121/56
--- NOTE | 2018-09-25 15:46 | PDOC ---
PULMONARY PROGRESS NOTES Vitals Vital Signs Date Time Temp Pulse Resp B/P (MAP) Pulse Ox O2 Delivery O2 Flow Rate FiO2 09/25/18 15:00 97.8 111 18 121/56 (77) 97 Room Air 97.8 09/24/18 11:20 2.0 Labs Laboratory Tests Test 09/24/18 04:52 09/24/18 05:37 09/24/18 16:45 09/24/18 23:00 Influenza Type A Antigen Negative (NEGATIVE) Influenza Type B Antigen Positive (NEGATIVE) White Blood Count 13.2 x10^3/uL (4.0-11.0) Red Blood Count 4.73 x10^6/uL (3.50-5.40) Hemoglobin 13.2 g/dL (12.0-15.5) Hematocrit 40.2 % (36.0-47.0) Mean Corpuscular Volume 85 fL (79-100) Mean Corpuscular Hemoglobin 28 pg (25-35) Mean Corpuscular Hemoglobin Concent 33 g/dL (31-37) Red Cell Distribution Width 14.8 % (11.5-14.5) Platelet Count 271 x10^3/uL (140-400) Neutrophils (%) (Auto) 62 % (31-73) Lymphocytes (%) (Auto) 29 % (24-48) Monocytes (%) (Auto) 8 % (0-9) Eosinophils (%) (Auto) 1 % (0-3) Basophils (%) (Auto) 0 % (0-3) Neutrophils # (Auto) 8.2 x10^3uL (1.8-7.7) Lymphocytes # (Auto) 3.8 x10^3/uL (1.0-4.8) Monocytes # (Auto) 1.1 x10^3/uL (0.0-1.1) Eosinophils # (Auto) 0.1 x10^3/uL (0.0-0.7) Basophils # (Auto) 0.1 x10^3/uL (0.0-0.2) Maternal Serum HCG Beta Subunit 1 mIU/mL (0-5) Sodium Level 139 mmol/L (136-145) Potassium Level 3.3 mmol/L (3.5-5.1) Chloride Level 104 mmol/L (98-107) Carbon Dioxide Level 21 mmol/L (21-32) Anion Gap 14 (6-14) Blood Urea Nitrogen 15 mg/dL (7-20) Creatinine 1.0 mg/dL (0.6-1.0) Estimated GFR (Cockcroft-Gault) 81.1 BUN/Creatinine Ratio 15 (6-20) Glucose Level 121 mg/dL (70-99) Lactic Acid Level 2.3 mmol/L (0.4-2.0) 3.3 mmol/L (0.4-2.0) 2.8 mmol/L (0.4-2.0) Calcium Level 9.8 mg/dL (8.5-10.1) Total Bilirubin 0.2 mg/dL (0.2-1.0) Aspartate Amino Transf (AST/SGOT) 13 U/L (15-37) Alanine Aminotransferase (ALT/SGPT) 31 U/L (14-59) Alkaline Phosphatase 118 U/L (46-116) Total Protein 8.0 g/dL (6.4-8.2) Albumin 3.5 g/dL (3.4-5.0) Albumin/Globulin Ratio 0.8 (1.0-1.7) Test 09/25/18 03:30 White Blood Count 15.1 x10^3/uL (4.0-11.0) Red Blood Count 4.48 x10^6/uL (3.50-5.40) Hemoglobin 12.6 g/dL (12.0-15.5) Hematocrit 38.0 % (36.0-47.0) Mean Corpuscular Volume 85 fL (79-100) Mean Corpuscular Hemoglobin 28 pg (25-35) Mean Corpuscular Hemoglobin Concent 33 g/dL (31-37) Red Cell Distribution Width 14.7 % (11.5-14.5) Platelet Count 291 x10^3/uL (140-400) Neutrophils (%) (Auto) 90 % (31-73) Lymphocytes (%) (Auto) 9 % (24-48) Monocytes (%) (Auto) 2 % (0-9) Eosinophils (%) (Auto) 0 % (0-3) Basophils (%) (Auto) 0 % (0-3) Neutrophils # (Auto) 13.6 x10^3uL (1.8-7.7) Lymphocytes # (Auto) 1.3 x10^3/uL (1.0-4.8) Monocytes # (Auto) 0.2 x10^3/uL (0.0-1.1) Eosinophils # (Auto) 0.0 x10^3/uL (0.0-0.7) Basophils # (Auto) 0.0 x10^3/uL (0.0-0.2) Segmented Neutrophils % 84 % (35-66) Lymphocytes % 14 % (24-48) Monocytes % 2 % (0-10) Toxic Granulation Slight Platelet Estimate Adequate (ADEQUATE) Sodium Level 137 mmol/L (136-145) Potassium Level 4.4 mmol/L (3.5-5.1) Chloride Level 103 mmol/L (98-107) Carbon Dioxide Level 21 mmol/L (21-32) Anion Gap 13 (6-14) Blood Urea Nitrogen 15 mg/dL (7-20) Creatinine 1.0 mg/dL (0.6-1.0) Estimated GFR (Cockcroft-Gault) 81.1 Glucose Level 148 mg/dL (70-99) Calcium Level 9.4 mg/dL (8.5-10.1) Laboratory Tests Test 09/24/18 16:45 09/24/18 23:00 09/25/18 03:30 Lactic Acid Level 3.3 mmol/L (0.4-2.0) 2.8 mmol/L (0.4-2.0) White Blood Count 15.1 x10^3/uL (4.0-11.0) Red Blood Count 4.48 x10^6/uL (3.50-5.40) Hemoglobin 12.6 g/dL (12.0-15.5) Hematocrit 38.0 % (36.0-47.0) Mean Corpuscular Volume 85 fL (79-100) Mean Corpuscular Hemoglobin 28 pg (25-35) Mean Corpuscular Hemoglobin Concent 33 g/dL (31-37) Red Cell Distribution Width 14.7 % (11.5-14.5) Platelet Count 291 x10^3/uL (140-400) Neutrophils (%) (Auto) 90 % (31-73) Lymphocytes (%) (Auto) 9 % (24-48) Monocytes (%) (Auto) 2 % (0-9) Eosinophils (%) (Auto) 0 % (0-3) Basophils (%) (Auto) 0 % (0-3) Neutrophils # (Auto) 13.6 x10^3uL (1.8-7.7) Lymphocytes # (Auto) 1.3 x10^3/uL (1.0-4.8) Monocytes # (Auto) 0.2 x10^3/uL (0.0-1.1) Eosinophils # (Auto) 0.0 x10^3/uL (0.0-0.7) Basophils # (Auto) 0.0 x10^3/uL (0.0-0.2) Segmented Neutrophils % 84 % (35-66) Lymphocytes % 14 % (24-48) Monocytes % 2 % (0-10) Toxic Granulation Slight Platelet Estimate Adequate (ADEQUATE) Sodium Level 137 mmol/L (136-145) Potassium Level 4.4 mmol/L (3.5-5.1) Chloride Level 103 mmol/L (98-107) Carbon Dioxide Level 21 mmol/L (21-32) Anion Gap 13 (6-14) Blood Urea Nitrogen 15 mg/dL (7-20) Creatinine 1.0 mg/dL (0.6-1.0) Estimated GFR (Cockcroft-Gault) 81.1 Glucose Level 148 mg/dL (70-99) Calcium Level 9.4 mg/dL (8.5-10.1) Medications Active Scripts Medications Dose Route/Sig Max Daily Dose Days Date Category Flovent 44MCG Hfa (Fluticasone Propionate) 10.6 Gm Aer.w.adap 2 Puff IH BID 10 04/26/18 Rx Proair Hfa Inhaler (Albuterol Sulfate) 8.5 Gm Hfa.aer.ad 1-2 Puff INH PRN Q4-6HRS PRN 04/26/18 Rx Ventolin Hfa Inhaler (Albuterol Sulfate) 18 Gm Hfa.aer.ad 2 Puff INH Q4HRS 03/28/18 Rx Albuterol Sulfate Conc Neb Soln (Albuterol Sulfate) 2.5 Mg/0.5 Ml Vial.neb 1 Vial NEB Q4HRS 01/23/18 Rx Duoneb 0.5-3(2.5) Mg/3 Ml (Albuterol/Ipratropium) 3 Ml Ampul.neb 3 Ml NEB QID 30 07/19/17 Rx Impression . FULL NOTE DICTATED ASTHMA INFLUNZA D/C IN AM WITH PRED TAPER RX FOR FLOVENT 110 TWO PUFF BID FOLLOW UP WITH PCP TANYA SAM MD Sep 25, 2018 15:46
[2018-09-25] MEDS: ENOXAPARIN 40 MG/0.4 ML SYRINGE. SQ SCH (16:00)
[2018-09-25 19:15] VITALS: BP 131/71
--- NOTE | 2018-09-25 20:50 | CONS ---
DATE OF CONSULTATION: 09/25/2018 ATTENDING PHYSICIAN: Dr. Pedraza. REASON FOR CONSULTATION: The patient is seen in pulmonary consultation at the request of Dr. Pedraza for asthma and wheezing. HISTORY OF PRESENT ILLNESS: The patient is a 28-year-old that normally utilizes albuterol on a p.r.n. basis. She has not had any formal allergy testing. There is a family history of asthma. She is a lifetime nonsmoker, presented with increasing shortness of breath, wheeze. Her screen for flu was positive for B. She is currently on Tamiflu. She on good days utilizes albuterol once per day. Recently, she has been on no maintenance medication. PAST MEDICAL HISTORY: Otherwise remarkable for asthma as described above. SOCIAL HISTORY: Occasional use of alcohol, illicit drug use in the past. FAMILY HISTORY: Asthma. PAST SURGICAL HISTORY: None. REVIEW OF SYSTEMS: As indicated above, otherwise the 10-point system was reviewed and negative. PHYSICAL EXAMINATION: GENERAL: The patient was in no respiratory distress. VITAL SIGNS: Stable. O2 saturation was greater than 92%. HEENT: Eyes, the sclerae were nonicteric. NECK: Jugular venous distention could not be assessed secondary to body habitus. CHEST: Full expansion. LUNGS: Clear. No wheezes. Adequate airway flow. CARDIOVASCULAR: Regular rate and rhythm with S1, S2, no S3. ABDOMEN: Soft, nontender, obese. EXTREMITIES: No clubbing, cyanosis or pitting edema. LABORATORY DATA: Reviewed. White count was elevated. Electrolytes were noted. IMPRESSION: 1. Acute exacerbation of asthma secondary to influenza. 2. Positive B influenza. 3. Morbid obesity. PLAN: 1. The patient much improved. Okay to discharge home in the a.m. and taper prednisone. 2. Prescription for Flovent 110 two puffs twice daily. 3. P.r.n. albuterol. 4. The patient is to follow up with her primary care doctor upon discharge. I do appreciate the privilege in sharing this patient's care. TANYA SAM MD DR: PREET/hiro JOB#: [id number] / [id number]
[2018-09-25] MEDS: MONTELUKAST SODIUM 10 MG TABLET. PO SCH (20:57)
[2018-09-25 23:10] VITALS: BP 140/72
[2018-09-26 03:00] VITALS: BP 113/56
[2018-09-26] MEDS: methylPREDNISolone SOD SUCC PF 125 MG/2 ML VIAL. IV SCH (05:57)
[2018-09-26] MEDS: PANTOPRAZOLE 40 MG TABLET.DR. PO SCH (05:57)
[2018-09-26] MEDS: HYDROcodone/APAP 5/325MG 1 TAB TABLET PO PRN ×2 (05:58→11:00)
[2018-09-26 07:00] VITALS: BP 105/50
[2018-09-26] MEDS: POTASSIUM CHLORIDE 20 MEQ TABLET.ER. PO SCH (08:42)
[2018-09-26] MEDS: ALBUTEROL SULFATE 2.5 MG/3 ML NEBU. NEB PRN (08:47)
--- NOTE | 2018-09-26 09:26 | PDOC ---
PULMONARY PROGRESS NOTES Vitals Vital Signs Date Time Temp Pulse Resp B/P (MAP) Pulse Ox O2 Delivery O2 Flow Rate FiO2 09/26/18 08:47 98 Room Air 09/26/18 08:41 83 105/50 09/26/18 07:01 18 09/26/18 07:00 98.6 98.6 Lungs: Clear Labs Laboratory Tests Test 09/24/18 16:45 09/24/18 23:00 09/25/18 03:30 Lactic Acid Level 3.3 mmol/L (0.4-2.0) 2.8 mmol/L (0.4-2.0) White Blood Count 15.1 x10^3/uL (4.0-11.0) Red Blood Count 4.48 x10^6/uL (3.50-5.40) Hemoglobin 12.6 g/dL (12.0-15.5) Hematocrit 38.0 % (36.0-47.0) Mean Corpuscular Volume 85 fL (79-100) Mean Corpuscular Hemoglobin 28 pg (25-35) Mean Corpuscular Hemoglobin Concent 33 g/dL (31-37) Red Cell Distribution Width 14.7 % (11.5-14.5) Platelet Count 291 x10^3/uL (140-400) Neutrophils (%) (Auto) 90 % (31-73) Lymphocytes (%) (Auto) 9 % (24-48) Monocytes (%) (Auto) 2 % (0-9) Eosinophils (%) (Auto) 0 % (0-3) Basophils (%) (Auto) 0 % (0-3) Neutrophils # (Auto) 13.6 x10^3uL (1.8-7.7) Lymphocytes # (Auto) 1.3 x10^3/uL (1.0-4.8) Monocytes # (Auto) 0.2 x10^3/uL (0.0-1.1) Eosinophils # (Auto) 0.0 x10^3/uL (0.0-0.7) Basophils # (Auto) 0.0 x10^3/uL (0.0-0.2) Segmented Neutrophils % 84 % (35-66) Lymphocytes % 14 % (24-48) Monocytes % 2 % (0-10) Toxic Granulation Slight Platelet Estimate Adequate (ADEQUATE) Sodium Level 137 mmol/L (136-145) Potassium Level 4.4 mmol/L (3.5-5.1) Chloride Level 103 mmol/L (98-107) Carbon Dioxide Level 21 mmol/L (21-32) Anion Gap 13 (6-14) Blood Urea Nitrogen 15 mg/dL (7-20) Creatinine 1.0 mg/dL (0.6-1.0) Estimated GFR (Cockcroft-Gault) 81.1 Glucose Level 148 mg/dL (70-99) Calcium Level 9.4 mg/dL (8.5-10.1) Medications Active Scripts Medications Dose Route/Sig Max Daily Dose Days Date Category Flovent 44MCG Hfa (Fluticasone Propionate) 10.6 Gm Aer.w.adap 2 Puff IH BID 10 04/26/18 Rx Proair Hfa Inhaler (Albuterol Sulfate) 8.5 Gm Hfa.aer.ad 1-2 Puff INH PRN Q4-6HRS PRN 04/26/18 Rx Ventolin Hfa Inhaler (Albuterol Sulfate) 18 Gm Hfa.aer.ad 2 Puff INH Q4HRS 03/28/18 Rx Albuterol Sulfate Conc Neb Soln (Albuterol Sulfate) 2.5 Mg/0.5 Ml Vial.neb 1 Vial NEB Q4HRS 01/23/18 Rx Duoneb 0.5-3(2.5) Mg/3 Ml (Albuterol/Ipratropium) 3 Ml Ampul.neb 3 Ml NEB QID 30 07/19/17 Rx Impression . FULL NOTE DICTATED ASTHMA INFLUNZA D/C IN AM WITH PRED TAPER RX FOR FLOVENT 110 TWO PUFF BID FOLLOW UP WITH PCP TANYA SAM MD Sep 26, 2018 09:26
[2018-09-26 11:00] VITALS: BP 150/67
--- NOTE | 2018-09-26 11:19 | NUR ---
SW following. Discussed with RN. No SW needs at this time. SW will continue to follow.
[2018-09-26] MEDS ORDERED: PRED-220 PO (13:09)
--- NOTE | 2018-09-26 13:56 | NUR ---
Pt DC to home per private car accompanied by family. RX's for duoneb and albuterol inhalers called into pt's preferred pharmacy. Also provided with education on asthma and prevention of attacks, as well as rx's for prednisone taper, and flovent. Left with belongings, IV DC'ed no complications.
--- NOTE | 2018-10-24 01:01 | PDOC3 ---
Discharge Summary Visit Information Date of Admission: Sep 24, 2018 Date of Discharge: Sep 26, 2018 Admitting Diagnosis: hypoxia, ill Final Diagnosis 1. acute hypoxic resp failure 2. acute exac of persistent asthma 3. hypertension obesity, Bmi 36 5. ACUTE FLU B POS 6. Hypokalemia Problems Medical Problems: (1) Asthma exacerbation Status: Acute (2) Failure of outpatient treatment Status: Acute Brief Hospital Course Allergies Allergies Coded Allergies Type Severity Reaction Last Updated Verified No Known Drug Allergies 03/02/16 No Brief Hospital Course Ms. Colon is a 28 old female, admit with resp distress, flu RESP ISOLATION, tamiflu, pulm consult, steroids better at 2 days Discharge Information Condition at Discharge: Improved Follow Up: Weeks Disposition/Orders: D/C to Home Scheduled Albuterol Sulfate (Albuterol Sulfate Conc Neb Soln) 2.5 Mg/0.5 Ml Vial.neb, 1 VIAL NEB Q4HRS, #60 Ref 1 Prescribed by: CALVIN JIMENEZ PA-C on 01/23/18 1216 Albuterol Sulfate (Ventolin Hfa Inhaler) 18 Gm Hfa.aer.ad, 2 PUFF INH Q4HRS for FOR ASTHMA, #1 Ref 0 Prescribed by: Cierra Hirsch APRN on 03/28/18 1832 Fluticasone Propionate (Flovent 44MCG Hfa) 10.6 Gm Aer.w.adap, 2 PUFF IH BID for 10 Days, #1 Ref 0 Prescribed by: JESSICA FERNANDO APRN on 04/26/18 0049 Ipratropium/Albuterol Sulfate (Duoneb 0.5-3(2.5) Mg/3 Ml) 3 Ml Ampul.neb, 3 ML NEB QID for 30 Days, #120 Prescribed by: MARY BOSE MD on 07/19/17 0434 Prednisone (Prednisone ) 10 Mg Tablet, 10 MG PO UD for asthma, #30 Ref 0 Take 5 tablets by mouth daily for 2 days, then take 4 tablets by mouth daily for 2 days, then take 3 tablets by mouth daily for 2 days, then take 2 tablets by mouth daily for 2 days, then take 1 tablets by mouth daily for 2 days, then stop. Prescribed by: XIMENA CURTIS on 09/26/18 1309 Scheduled PRN Albuterol Sulfate (Proair Hfa Inhaler) 8.5 Gm Hfa.aer.ad, 1-2 PUFF INH PRN Q4- 6HRS PRN for SHORTNESS OF BREATH, #1 Ref 1 Prescribed by: JESSICA FERNANDO APRN on 04/26/18 0049 XIMENA CURTIS MD Oct 24, 2018 01:01
== END 2018-09-26 13:55 | disposition home or self-care (01) | DRG 189 ==
LOC: ER 03:39 → 4 NORTH 04:57
PROVIDERS: ADMIT Internal Medicine; ATTEND Internal Medicine
DX: J96.01 Acute respiratory failure with hypoxia (principal); J45.41 Moderate persistent asthma with (acute) exacerbation; J10.1 Influenza due to other identified influenza virus with other respiratory manifestations; E66.01 Morbid (severe) obesity due to excess calories; E87.6 Hypokalemia; F17.210 Nicotine dependence, cigarettes, uncomplicated; I10 Essential (primary) hypertension; Z82.5 Family history of asthma and other chronic lower respiratory diseases; Z68.36 Body mass index [BMI] 36.0-36.9, adult
CPT/HCPCS: 36415; 71046; 80048; 80053; 83605; 84702; 85007; 85025; 87804; 94640; 94644; 94760; 96374; J1100; J1650; J2930; J7613; J7620; 99285-25; G0378

== ENCOUNTER 2019-09-12 12:14 | Emergency (ER) | payer SELFPAY ==
[~2019-09-12] VITALS: Ht 157.5 cm; Wt 83.9 kg
[~2019-09-12 12:14] MED LIST changes: +DOXY-96 PO; -DOXY100T9 PO; +PRED-220 PO
[2019-09-12 13:10] VITALS: BP 143/68
--- NOTE | 2019-09-12 14:03 | PHYS DOC ---
Past Medical History Past Medical History: Asthma Additional Past Medical Histor: "KELOID SKIN" Past Surgical History: Other Additional Past Surgical Histo: RIGHT EAR Alcohol Use: Occasionally Drug Use: None, Methadone Adult General Chief Complaint Chief Complaint: PAIN ON URINATION [facility] HPI Patient is a 29 year old [female] who presents with [lower abdominal pain. states she has had this discomfort for the last 2 days, states she has had increased urinary frequency and burning. States she has a history of prior UTI, but it has been a year or two. states she has no concerns over STI at this time, Denies vaginal discharge or vaginal bleeding. last menstrual cycle 1 week ago. States she has tried drinking a large amount of fluids over the past couple days but has not had any improvement. Denies change in appetite recently, however does state she has not had anything to eat today. States some lower abdominal discomfort. ] Review of Systems Review of Systems Constitutional: Denies fever or chills [] Eyes: Denies change in visual acuity, redness, or eye pain [] HENT: Denies nasal congestion or sore throat [] Respiratory: Denies cough or shortness of breath [] Cardiovascular: No additional information not addressed in HPI [] GI: Denies abdominal pain, nausea, vomiting, bloody stools or diarrhea [] : Reports increased urinary frequency, reports she did notice a small amount of blood in her urine today. Denies any vaginal discharge[] Musculoskeletal: Denies back pain or joint pain [] Integument: Denies rash or skin lesions [] Neurologic: Denies headache, focal weakness or sensory changes [] Endocrine: Denies polyuria or polydipsia [] All other systems were reviewed and found to be within normal limits, except as documented in this note. Allergies Allergies Allergies Coded Allergies Type Severity Reaction Last Updated Verified No Known Drug Allergies 03/02/16 No Physical Exam Physical Exam Constitutional: Well developed, well nourished, no acute distress, non-toxic appearance. [] HENT: Normocephalic, atraumatic, bilateral external ears normal, oropharynx moist, no oral exudates, nose normal. [] Eyes: PERRLA, EOMI, conjunctiva normal, no discharge. [] Neck: Normal range of motion, no tenderness, supple, no stridor. [] Cardiovascular:Heart rate regular rhythm, no murmur [] Lungs & Thorax: Bilateral breath sounds clear to auscultation [] Abdomen: Bowel sounds normal, soft, no tenderness, no masses, no pulsatile masses. Tenderness noted on palpation over her suprapubic. [] Skin: Warm, dry, no erythema, no rash. [] Back: No tenderness, no CVA tenderness. [] Extremities: No tenderness, no cyanosis, no clubbing, ROM intact, no edema. [] Neurologic: Alert and oriented X 3, normal motor function, normal sensory function, no focal deficits noted. [] Psychologic: Affect normal, judgement normal, mood normal. [] Current Patient Data Vital Signs Vital Signs Date Time Temp Pulse Resp B/P (MAP) Pulse Ox O2 Delivery O2 Flow Rate FiO2 09/12/19 13:10 98.5 82 18 143/68 (93) 97 Room Air 98.5 Lab Values Laboratory Tests Test 09/12/19 13:54 09/12/19 13:56 Urine Collection Type Unknown Urine Color Yellow Urine Clarity Cloudy Urine pH 6.0 Urine Specific [place] 1.025 Urine Protein 100 mg/dL (NEG-TRACE) Urine Glucose (UA) Negative mg/dL (NEG) Urine Ketones (Stick) Negative mg/dL (NEG) Urine Blood Large (NEG) Urine Nitrite Positive (NEG) Urine Bilirubin Negative (NEG) Urine Urobilinogen Dipstick 0.2 mg/dL (0.2 mg/dL) Urine Leukocyte Esterase Large (NEG) Urine RBC Tntc /HPF (0-2) Urine WBC Tntc /HPF (0-4) Urine Squamous Epithelial Cells Many /LPF Urine Bacteria Many /HPF (0-FEW) POC Urine HCG, Qualitative Hcg negative (Negative) EKG EKG [] Radiology/Procedures Radiology/Procedures [] Course & Med Decision Making Course & Med Decision Making Pertinent Labs and Imaging studies reviewed. (See chart for details) []Reviewed urinalysis with noted UTI. will provide Rx for antibiotics Dragon Disclaimer Dragon Disclaimer This electronic medical record was generated, in whole or in part, using a voice recognition dictation system. Departure Departure Impression: Primary Impression: UTI (lower urinary tract infection) Disposition: HOME, SELF-CARE Condition: STABLE Referrals: NO PCP (PCP) Patient Instructions: Urinary Tract Infection Additional Instructions: As we discussed, continue to drink plenty of fluids. Follow-up with her primary care provider. Take antibiotics as prescribed until they're gone, even if you start to feel better. Scripts Cephalexin (CEPHALEXIN) 500 Mg Tablet 500 MG PO BID for 10 Days, #20 TAB Prov: CALVIN CUEVAS APRN 09/12/19 CALVIN CUEVAS APRN Sep 12, 2019 14:03
[2019-09-12 14:04] LABS: BILIRUBIN,URINE NEGATIVE (NEG); CLARITY,URINE CLOUDY; COLOR,URINE YELLOW; NITRITE,URINE POSITIVE (NEG); PROTEIN,URINE 100 mg/dL (NEG-TRACE); UROBILINOGEN,URINE 0.2 mg/dL (0.2 mg/dL)
[2019-09-12 14:10] LABS: BACTERIA,URINE MANY /HPF (0-FEW); RBC,URINE TNTC /HPF (0-2); SQUAMOUS EPITHELIAL CELL,UR MANY /LPF; WBC,URINE TNTC /HPF (0-4)
[2019-09-12] MEDS ORDERED: CEPH500T PO (14:52)
== END 2019-09-12 15:07 | disposition home or self-care (01) ==
LOC: ER 12:14
DX: N39.0 Urinary tract infection, site not specified (principal); R35.0 Frequency of micturition; J45.909 Unspecified asthma, uncomplicated; F11.20 Opioid dependence, uncomplicated; Z98.890 Other specified postprocedural states
CPT/HCPCS: 81001; 81025; 87086; 87186; 99284

== ENCOUNTER 2019-11-07 13:09 | Emergency (ER) | payer SELFPAY ==
[~2019-11-07] VITALS: Ht 157.5 cm; Wt 134.9 kg
[~2019-11-07 13:09] MED LIST changes: +CEPH500T PO; +ONDA4TAB12 PO
--- NOTE | 2019-11-07 15:46 | PHYS DOC ---
Past Medical History Past Medical History: Asthma Additional Past Medical Histor: "KELOID SKIN" Past Surgical History: Other Additional Past Surgical Histo: RIGHT EAR Smoking Status: Former Smoker Alcohol Use: Occasionally Additional Information: NOT CURRENTLY DUE TO Drug Use: None, Methadone Social History Narrative: NOT CURRENTLY DUE TO Adult General Chief Complaint Chief Complaint: ABDOMINAL PAIN IN HPI HPI Patient is a 29 year old female who presents with is 5 weeks and see [facility] at [facility]. Patient states that she sent her here today to rule out a ectopic . She states that her beta hcg serum has been steadily decreasing instead of going up. Patient denies any vaginal bleeding. She states her time to time when she is up walking but she will have some lower mid abdominal cramping. She states that she does not have any pain at this time. Patient denies fever, dysuria, back pain, abdominal pain at this time, vaginal bleeding, chest pain, shortness of air, headache, dizziness, nausea, vomiting, diarrhea. Review of Systems Review of Systems GI: abdominal pain, denies nausea, vomiting, bloody stools or diarrhea [] All other systems were reviewed and found to be within normal limits, except as documented in this note. Allergies Allergies Allergies Coded Allergies Type Severity Reaction Last Updated Verified No Known Drug Allergies 03/02/16 No Physical Exam Physical Exam Constitutional: Well developed, well nourished, no acute distress, non-toxic appearance. [] HENT: Normocephalic, atraumatic, bilateral external ears normal, oropharynx moist, no oral exudates, nose normal. [] Eyes: PERRLA, EOMI, conjunctiva normal, no discharge. [] Neck: Normal range of motion, no tenderness, supple, no stridor. [] Cardiovascular:Heart rate regular rhythm, no murmur [] Lungs & Thorax: Bilateral breath sounds clear to auscultation [] Abdomen: Bowel sounds normal, soft, no tenderness, no masses, no pulsatile masses. [] Skin: Warm, dry, no erythema, no rash. [] Back: No tenderness, no CVA tenderness. [] Extremities: No tenderness, no cyanosis, no clubbing, ROM intact, no edema. [] Neurologic: Alert and oriented X 3, normal motor function, normal sensory function, no focal deficits noted. [] Psychologic: Affect normal, judgement normal, mood normal. Normal Physical Exam[] Current Patient Data Vital Signs Vital Signs Date Time Temp Pulse Resp B/P (MAP) Pulse Ox O2 Delivery O2 Flow Rate FiO2 11/07/19 16:24 84 107/52 (70) 98 Room Air 11/07/19 14:45 98.1 16 98.1 Lab Values Laboratory Tests Test 11/07/19 13:18 11/07/19 13:21 11/07/19 16:50 Urine Collection Type Unknown Urine Color Yellow Urine Clarity Clear Urine pH 6.5 (<5.0-8.0) Urine Specific [place] <=1.005 (1.000-1.030) Urine Protein Negative mg/dL (NEG-TRACE) Urine Glucose (UA) Negative mg/dL (NEG) Urine Ketones (Stick) Negative mg/dL (NEG) Urine Blood Moderate (NEG) Urine Nitrite Negative (NEG) Urine Bilirubin Negative (NEG) Urine Urobilinogen Dipstick 0.2 mg/dL (0.2 mg/dL) Urine Leukocyte Esterase Negative (NEG) Urine RBC 0 /HPF (0-2) Urine WBC Rare /HPF (0-4) Urine Squamous Epithelial Cells Few /LPF Urine Bacteria Few /HPF (0-FEW) POC Urine HCG, Qualitative Hcg positive (Negative) White Blood Count 6.8 x10^3/uL (4.0-11.0) Red Blood Count 4.57 x10^6/uL (3.50-5.40) Hemoglobin 12.8 g/dL (12.0-15.5) Hematocrit 38.5 % (36.0-47.0) Mean Corpuscular Volume 84 fL (79-100) Mean Corpuscular Hemoglobin 28 pg (25-35) Mean Corpuscular Hemoglobin Concent 33 g/dL (31-37) Red Cell Distribution Width 15.7 % (11.5-14.5) H Platelet Count 267 x10^3/uL (140-400) Neutrophils (%) (Auto) 56 % (31-73) Lymphocytes (%) (Auto) 30 % (24-48) Monocytes (%) (Auto) 9 % (0-9) Eosinophils (%) (Auto) 4 % (0-3) H Basophils (%) (Auto) 1 % (0-3) Neutrophils # (Auto) 3.8 x10^3/uL (1.8-7.7) Lymphocytes # (Auto) 2.0 x10^3/uL (1.0-4.8) Monocytes # (Auto) 0.6 x10^3/uL (0.0-1.1) Eosinophils # (Auto) 0.2 x10^3/uL (0.0-0.7) Basophils # (Auto) 0.1 x10^3/uL (0.0-0.2) Maternal Serum HCG Beta Subunit 885 mIU/mL (0-5) H Sodium Level 141 mmol/L (136-145) Potassium Level 3.7 mmol/L (3.5-5.1) Chloride Level 103 mmol/L (98-107) Carbon Dioxide Level 28 mmol/L (21-32) Anion Gap 10 (6-14) Blood Urea Nitrogen 10 mg/dL (7-20) Creatinine 0.9 mg/dL (0.6-1.0) Estimated GFR (Cockcroft-Gault) 90.9 BUN/Creatinine Ratio 11 (6-20) Glucose Level 79 mg/dL (70-99) Calcium Level 9.3 mg/dL (8.5-10.1) Total Bilirubin 0.3 mg/dL (0.2-1.0) Aspartate Amino Transferase (AST) 28 U/L (15-37) Alanine Aminotransferase (ALT) 58 U/L (14-59) Alkaline Phosphatase 86 U/L (46-116) Total Protein 7.5 g/dL (6.4-8.2) Albumin 3.7 g/dL (3.4-5.0) Albumin/Globulin Ratio 1.0 (1.0-1.7) Laboratory Tests 11/07/19 16:50 Laboratory Tests 11/07/19 16:50 EKG EKG [] Radiology/Procedures Radiology/Procedures [] Impressions: [facility] [address] [place] [address] IMAGING REPORT Signed PATIENT: AMEENA TOLENTINO RACCOUNT: [id number] : 1990 LOCATION: ER AGE: 29 SEX: F EXAM STATUS: REG ER ORD. PHYSICIAN: LIDYA ROBERSON APRN REASON: abdominal pain,CRAMPING, 5 weeks PREG, WAITING ON HCG PROCEDURE: OB < 14 WKS Study: STUDY OB < 14 WKS DATE: 11/07/2019 3:41 PM INDICATION: Abdominal pain. Cramping. COMPARISON: 10/22/2019 TECHNIQUE: Transabdominal ultrasonography of the pelvis was performed. Color Doppler and duplex were utilized as appropriate. FINDINGS: The study is made difficult by patient body habitus. The uterus is measured at 8.2 x 3.4 x 4.6 cm. The endometrial echo is normal in thickness at the fundal region measured at up to 0.3 cm. No intrauterine gestational sac, pole or yolk sac is identified. There is no abnormal vascularity detected along the endometrium at the fundal and body regions. There is heterogeneous echogenicity in the region of the uterine cervix on a few images. The right ovary measures 3.6 x 2.2 x 3.9 cm and the left ovary 4.0 x 2.5 x 2.7 cm. Normal Doppler flow is maintained to both ovaries. No large volume free fluid seen within the pelvis. IMPRESSION: 1. The study is made difficult by patient body habitus however diagnostic utility is mostly maintained. No intrauterine gestational sac is identified nor findings at either adnexa suspicious for an ectopic . As was noted on the 06/21/2020 comparison when no gestational sac was seen as well, this could either represent an early intrauterine , failed intrauterine or nonvisualized ectopic . Correlation with beta hCG levels is needed as well as short-term follow-up. 2. Heterogeneous echogenicity in the region of the uterine cervix but this is not fully characterized. If there is reported vaginal bleeding then blood products are a consideration. 3. Normal Doppler flow to both ovaries. No large volume free fluid seen within the pelvis. Electronically signed by: PANCHITO STEELE MD (11/07/2019 4:40 PM) [id number] DICTATED and SIGNED BY: PANCHITO STEELE MD DATE: 11/07/19 1640 Course & Med Decision Making Course & Med Decision Making Pertinent Labs and Imaging studies reviewed. (See chart for details) Abdomen is soft and nontender. Alert and oriented. Ambulatory with steady gait. Skin pink warm and dry. Speaks In full clear sentences. IMPRESSION: 1. The study is made difficult by patient body habitus however diagnostic utility is mostly maintained. No intrauterine gestational sac is identified nor findings at either adnexa suspicious for an ectopic . As was noted on the 06/21/2020 comparison when no gestational sac was seen as well, this could either represent an early intrauterine , failed intrauterine or nonvisualized ectopic . Correlation with beta hCG levels is needed as well as short-term follow-up. 2. Heterogeneous echogenicity in the region of the uterine cervix but this is not fully characterized. If there is reported vaginal bleeding then blood products are a consideration. 3. Normal Doppler flow to both ovaries. No large volume free fluid seen within the pelvis. [] Dragon Disclaimer Dragon Disclaimer This electronic medical record was generated, in whole or in part, using a voice recognition dictation system. Departure Departure Impression: Primary Impression: Threatened miscarriage in early Disposition: 01 HOME, SELF-CARE Condition: STABLE Referrals: NO PCP (PCP) Patient Instructions: Threatened Miscarriage, [id number] Additional Instructions: FOLLOW UP WITH YOUR OB DOCTOR YOU WILL NEED ANOTHER ULTRASOUND FOR FOLLOW UP. DRINK PLENTY OF FLUIDS. IF YOUR ABDOMINAL PAIN BECOMES SEVERE GO TO EMERGENCY ROOM. LIDYA ROBERSON APRN Nov 07, 2019 15:46
[2019-11-07 15:49] LABS: BILIRUBIN,URINE NEGATIVE (NEG); CLARITY,URINE CLEAR; COLOR,URINE YELLOW; NITRITE,URINE NEGATIVE (NEG); PH,URINE 6.5 (<5.0-8.0); PROTEIN,URINE NEGATIVE (NEG-TRACE); UROBILINOGEN,URINE 0.2 mg/dL (0.2 mg/dL)
[2019-11-07 15:59] LABS: BACTERIA,URINE FEW /HPF (0-FEW); RBC,URINE 0 /HPF (0-2); SQUAMOUS EPITHELIAL CELL,UR FEW /LPF; WBC,URINE RARE /HPF (0-4)
--- NOTE | 2019-11-07 16:43 | RAD ---
Study: STUDY OB < 14 WKS DATE: 11/07/2019 3:41 PM INDICATION: Abdominal pain. Cramping. COMPARISON: 10/22/2019 TECHNIQUE: Transabdominal ultrasonography of the pelvis was performed. Color Doppler and duplex were utilized as appropriate. FINDINGS: The study is made difficult by patient body habitus. The uterus is measured at 8.2 x 3.4 x 4.6 cm. The endometrial echo is normal in thickness at the fundal region measured at up to 0.3 cm. No intrauterine gestational sac, pole or yolk sac is identified. There is no abnormal vascularity detected along the endometrium at the fundal and body regions. There is heterogeneous echogenicity in the region of the uterine cervix on a few images. The right ovary measures 3.6 x 2.2 x 3.9 cm and the left ovary 4.0 x 2.5 x 2.7 cm. Normal Doppler flow is maintained to both ovaries. No large volume free fluid seen within the pelvis. IMPRESSION: 1. The study is made difficult by patient body habitus however diagnostic utility is mostly maintained. No intrauterine gestational sac is identified nor findings at either adnexa suspicious for an ectopic . As was noted on the 06/21/2020 comparison when no gestational sac was seen as well, this could either represent an early intrauterine , failed intrauterine or nonvisualized ectopic . Correlation with beta hCG levels is needed as well as short-term follow-up. 2. Heterogeneous echogenicity in the region of the uterine cervix but this is not fully characterized. If there is reported vaginal bleeding then blood products are a consideration. 3. Normal Doppler flow to both ovaries. No large volume free fluid seen within the pelvis. Electronically signed by: PANCHITO STEELE MD (11/07/2019 4:40 PM) [id number]
[2019-11-07 17:04] LABS: BASO # 0.1 x10^3/uL (0.0-0.2); BASO % 1 % (0-3); EOS # 0.2 x10^3/uL (0.0-0.7); EOS % 4 % (0-3); HEMATOCRIT 38.5 % (36.0-47.0); HEMOGLOBIN 12.8 g/dL (12.0-15.5); LYMPH % 30 % (24-48); MEAN CORPUSCULAR HEMOGLOBIN 28 pg (25-35); MEAN CORPUSCULAR HGB CONC 33 g/dL (31-37); MEAN CORPUSCULAR VOLUME 84 fL (79-100); MONO # 0.6 x10^3/uL (0.0-1.1); MONO % 9 % (0-9); NEUT # 3.8 x10^3/uL (1.8-7.7); NEUT % 56 % (31-73); PLATELET COUNT 267 x10^3/uL (140-400); RED BLOOD COUNT 4.57 x10^6/uL (3.50-5.40); RED CELL DISTRIBUTION WIDTH 15.7 % (11.5-14.5); WHITE BLOOD COUNT 6.8 x10^3/uL (4.0-11.0)
[2019-11-07 17:12] LABS: CALCIUM 9.3 mg/dL (8.5-10.1); CREATININE 0.9 mg/dL (0.6-1.0); GFR 90.9; POTASSIUM 3.7 mmol/L (3.5-5.1)
[2019-11-07 17:18] LABS: ALBUMIN 3.7 g/dL (3.4-5.0); TOTAL BILIRUBIN 0.3 mg/dL (0.2-1.0); TOTAL PROTEIN 7.5 g/dL (6.4-8.2)
[2019-11-07 18:24] VITALS: BP 136/75
== END 2019-11-07 18:58 | disposition home or self-care (01) ==
LOC: ER 13:09
DX: O20.0 Threatened abortion (principal); O99.511 Diseases of the respiratory system complicating pregnancy, first trimester; R10.30 Lower abdominal pain, unspecified; Z87.891 Personal history of nicotine dependence; Z98.890 Other specified postprocedural states; F15.90 Other stimulant use, unspecified, uncomplicated; Z3A.01 Less than 8 weeks gestation of pregnancy
CPT/HCPCS: 36415; 76801; 80053; 81001; 81025; 84702; 85025; 99285

== ENCOUNTER 2019-11-13 06:37 | Emergency (ER) | payer SELFPAY ==
[~2019-11-13] VITALS: Ht 157.5 cm; Wt 150.0 kg
[2019-11-13 07:03] LABS: BILIRUBIN,URINE NEGATIVE (NEG); CLARITY,URINE CLEAR; COLOR,URINE YELLOW; NITRITE,URINE NEGATIVE (NEG); PROTEIN,URINE NEGATIVE (NEG-TRACE); UROBILINOGEN,URINE 0.2 mg/dL (0.2 mg/dL)
[2019-11-13 07:14] LABS: BACTERIA,URINE MODERATE /HPF (0-FEW); SQUAMOUS EPITHELIAL CELL,UR MANY /LPF
--- NOTE | 2019-11-13 08:24 | RAD ---
OB <14 WKS W/TV Clinical Indication: Follow-up ultrasound. No definite IUP last time. Comparison: Obstetric ultrasound, November 07, 2019. TECHNIQUE: Real-time ultrasound imaging of the pelvis using transabdominal and transvaginal window is performed. Findings: Transabdominal images are essentially nondiagnostic due to patient body habitus and decreased through-transmission. Anteverted uterus. Uterus measures 8.4 x 4.1 x 3.7 cm. The cervix length is 3.4 cm. The cervix is closed. Tiny nabothian cyst. The endometrial stripe measures 6 mm. Intrauterine gestational sac is not identified. There is normal blood flow in the ovaries. The right ovary contains a functional cyst with internal echoes that may be hemorrhagic measuring up to 1.3 cm. No evidence of adnexal mass. No pelvic free fluid is identified. IMPRESSION: Intrauterine gestational sac is again not identified. Suggest correlation with quantitative beta hCG. Electronically signed by: Elpidio Rice MD (11/13/2019 8:21 AM) [id number]
[2019-11-13 10:03] VITALS: BP 131/79
[2019-11-13 10:10] LABS: BASO % 0 % (0-3); EOS # 0.3 x10^3/uL (0.0-0.7); EOS % 5 % (0-3); HEMATOCRIT 37.3 % (36.0-47.0); HEMOGLOBIN 12.5 g/dL (12.0-15.5); LYMPH # 2.1 x10^3/uL (1.0-4.8); LYMPH % 36 % (24-48); MEAN CORPUSCULAR HEMOGLOBIN 28 pg (25-35); MEAN CORPUSCULAR HGB CONC 33 g/dL (31-37); MEAN CORPUSCULAR VOLUME 84 fL (79-100); MONO # 0.6 x10^3/uL (0.0-1.1); MONO % 11 % (0-9); NEUT # 2.9 x10^3/uL (1.8-7.7); NEUT % 49 % (31-73); PLATELET COUNT 286 x10^3/uL (140-400); RED BLOOD COUNT 4.43 x10^6/uL (3.50-5.40); RED CELL DISTRIBUTION WIDTH 15.9 % (11.5-14.5); WHITE BLOOD COUNT 5.9 x10^3/uL (4.0-11.0)
--- NOTE | 2019-11-13 12:58 | PHYS DOC ---
Past Medical History Past Medical History: Asthma Additional Past Medical Histor: "KELOID SKIN" Past Surgical History: Other Additional Past Surgical Histo: RIGHT EAR Smoking Status: Former Smoker Alcohol Use: Occasionally Drug Use: None, Methadone Adult General Chief Complaint Chief Complaint: VAGINAL BLEEDING HPI HPI Patient is a 29 year old female presenting with vaginal spotting and abdominal cramping she has had this for over a week now if not longer last menstrual period was September 29. She was seen he seen here on November 06 she had a ultrasound that showed no IUP beta of 880 and she was advised to go to her still operator batch or continuous in 4 days for reevaluation. She came here instead with similar symptoms. Review of Systems Review of Systems Constitutional: Denies fever or chills [] Eyes: Denies change in visual acuity, redness, or eye pain [] HENT: Denies nasal congestion or sore throat [] Respiratory: Denies cough or shortness of breath [] All other systems were reviewed and found to be within normal limits, except as documented in this note. Allergies Allergies Allergies Coded Allergies Type Severity Reaction Last Updated Verified No Known Drug Allergies 03/02/16 No Physical Exam Physical Exam Constitutional: Well developed, well nourished, no acute distress, non-toxic appearance. [] HENT: Normocephalic, atraumatic, bilateral external ears normal, oropharynx mo ist, no oral exudates, nose normal. [] Eyes: PERRLA, EOMI, conjunctiva normal, no discharge. [] Neck: Normal range of motion, no tenderness, supple, no stridor. [] Pulmonary: Normal respiratory effort no increased work of breathing no obvious chest wall trauma Abdomen: Bowel sounds normal, soft, no tenderness, no masses, no pulsatile masses. [] Skin: Warm, dry, no erythema, no rash. [] Extremities: No tenderness, no cyanosis, no clubbing, ROM intact, no edema. [] Neurologic: Alert and oriented X 3, normal motor function, normal sensory function, no focal deficits noted. [] Psychologic: Affect normal, judgement normal, mood normal. [] exam performed by iain showed limited limited view of the cervix but it felt closed on digital exam and there was scant old blood in the vaginal vault no active bleeding. Current Patient Data Vital Signs Vital Signs Date Time Temp Pulse Resp B/P (MAP) Pulse Ox O2 Delivery O2 Flow Rate FiO2 11/13/19 10:03 84 131/79 (96) 98 Room Air 11/13/19 07:39 98.4 20 98.4 Lab Values Laboratory Tests Test 11/13/19 06:52 11/13/19 06:53 11/13/19 10:00 Urine Collection Type Void Urine Color Yellow Urine Clarity Clear Urine pH 6.0 (<5.0-8.0) Urine Specific [place] 1.020 (1.000-1.030) Urine Protein Negative mg/dL (NEG-TRACE) Urine Glucose (UA) Negative mg/dL (NEG) Urine Ketones (Stick) Negative mg/dL (NEG) Urine Blood Large (NEG) Urine Nitrite Negative (NEG) Urine Bilirubin Negative (NEG) Urine Urobilinogen Dipstick 0.2 mg/dL (0.2 mg/dL) Urine Leukocyte Esterase Negative (NEG) Urine RBC 3-5 /HPF (0-2) Urine WBC 5-10 /HPF (0-4) Urine Squamous Epithelial Cells Many /LPF Urine Bacteria Moderate /HPF (0-FEW) Urine Mucus Slight /LPF POC Urine HCG, Qualitative Hcg positive (Negative) White Blood Count 5.9 x10^3/uL (4.0-11.0) Red Blood Count 4.43 x10^6/uL (3.50-5.40) Hemoglobin 12.5 g/dL (12.0-15.5) Hematocrit 37.3 % (36.0-47.0) Mean Corpuscular Volume 84 fL (79-100) Mean Corpuscular Hemoglobin 28 pg (25-35) Mean Corpuscular Hemoglobin Concent 33 g/dL (31-37) Red Cell Distribution Width 15.9 % (11.5-14.5) H Platelet Count 286 x10^3/uL (140-400) Neutrophils (%) (Auto) 49 % (31-73) Lymphocytes (%) (Auto) 36 % (24-48) Monocytes (%) (Auto) 11 % (0-9) H Eosinophils (%) (Auto) 5 % (0-3) H Basophils (%) (Auto) 0 % (0-3) Neutrophils # (Auto) 2.9 x10^3/uL (1.8-7.7) Lymphocytes # (Auto) 2.1 x10^3/uL (1.0-4.8) Monocytes # (Auto) 0.6 x10^3/uL (0.0-1.1) Eosinophils # (Auto) 0.3 x10^3/uL (0.0-0.7) Basophils # (Auto) 0.0 x10^3/uL (0.0-0.2) Maternal Serum HCG Beta Subunit 718 mIU/mL (0-5) H Laboratory Tests 11/13/19 10:00 EKG EKG [] Radiology/Procedures Radiology/Procedures [] Impressions: Comparison: Obstetric ultrasound, November 07, 2019. TECHNIQUE: Real-time ultrasound imaging of the pelvis using transabdominal and transvaginal window is performed. Findings: Transabdominal images are essentially nondiagnostic due to patient body habitus and decreased through-transmission. Anteverted uterus. Uterus measures 8.4 x 4.1 x 3.7 cm. The cervix length is 3.4 cm. The cervix is closed. Tiny nabothian cyst. The endometrial stripe measures 6 mm. Intrauterine gestational sac is not identified. There is normal blood flow in the ovaries. The right ovary contains a functional cyst with internal echoes that may be hemorrhagic measuring up to 1.3 cm. No evidence of adnexal mass. No pelvic free fluid is identified. IMPRESSION: Intrauterine gestational sac is again not identified. Suggest correlation with quantitative beta hCG. Electronically signed by: Elpidio Rice MD (11/13/2019 8:21 AM) [id number] DICTATED and SIGNED BY: ELPIDIO RICE MD DATE: 11/13/19 0821 Course & Med Decision Making Course & Med Decision Making Pertinent Labs and Imaging studies reviewed. (See chart for details) [] First trimester vaginal bleeding the beta is slowly going down. I spoke with Dr. Fernandez who said to come to her office in 3 days for repeat hormone check. It likely is a miscarriage but we will not know for sure for another few days. I told the patient about this and I gave her return precautions for which to come to the emergency room otherwise please go to gynecology for follow-up. Dragon Disclaimer Dragon Disclaimer This electronic medical record was generated, in whole or in part, using a voice recognition dictation system. Departure Departure Impression: Primary Impression: Threatened miscarriage in early Disposition: 01 HOME, SELF-CARE Condition: STABLE Referrals: NO PCP (PCP) DARNELL NORMAN MD Patient Instructions: Vaginal Bleeding During , First Trimester Additional Instructions: CALL OB FOR FOLLOW UP BLOOD TEST IN 3-4 DAYS. COME BACK TO ER IF YOU HAVE MORE THAN ONE PAD PER HOUR OF VAGINAL BLEEDING OR SEVERE ABDOMINAL PAIN OR FAINTING SPELL. DEB MACIAS MD Nov 13, 2019 12:58
== END 2019-11-13 11:45 | disposition home or self-care (01) ==
LOC: ER 06:37
DX: O20.0 Threatened abortion (principal); O99.511 Diseases of the respiratory system complicating pregnancy, first trimester; J45.909 Unspecified asthma, uncomplicated; Z87.891 Personal history of nicotine dependence; Z3A.00 Weeks of gestation of pregnancy not specified
CPT/HCPCS: 36415; 76801; 76817; 81001; 81025; 84702; 85025; 87086; 99285-25